=== PATIENT | female | born 1955 | race Caucasian/White ===

== ENCOUNTER → 2016-12-12 | Outpatient (CLI) | payer OTHER ==
[~2016-12-12] MED LIST: ABILIFY 15MG TA15 MG PO; ARCAPTA NEOHAL75 MCG IH; CALCIUM WITH VI1 TA1 PO; COMBIVENT INH14.7 GM IH; COUMADIN 77.5 MG/TAB PO; LEVAQUIN 750MG750 M1 PO; LEVOXYL0.088 MG PO; LEXAPRO20 MG PO; NASAL & SINUS D30 MG PO; NORCO 325 MG-51 TAB PO; ONE DAILY1 TA1 PO; RT ADVAIR 528 DISKUS IH; RT SPIRIVA18 MCG IH; SINGULAIR 110 MG/TAB PO; ZYRTEC5 MG PO; [UNRECOGNIZED DRUG - OTHER] PO
== END ==
LOC: COL.PUL 09:43
DX: Z02.71 Encounter for disability determination (principal); Z87.891 Personal history of nicotine dependence; Z90.710 Acquired absence of both cervix and uterus

== ENCOUNTER → 2017-04-06 | Outpatient (CLI) | payer BC | LOC: MC.RAD 11:38 | DX: Z12.31 Encounter for screening mammogram for malignant neoplasm of breast (principal) ==

== ENCOUNTER → 2018-04-22 | Outpatient (CLI) | payer BC | LOC: MC.RAD 09:29 | DX: Z12.31 Encounter for screening mammogram for malignant neoplasm of breast (principal) ==

== ENCOUNTER 2018-09-07 19:47 | Inpatient (IN) | payer BC ==
[2018-09-07] VITALS (92 sets, daily range): BP systolic 114; BP diastolic 49; PULSE 106; TEMP 97.5; O2SAT 83–100
[~2018-09-07] VITALS: Ht 165.1 cm; Wt 92.7 kg
[2018-09-07 20:07] LABS: BASO % 0.3 % (0.0-2.0); EOS # 0.1 (0.0-0.7); EOS % 0.9 % (0-4.0); GRAN # 4.8 (1.4-6.5); GRAN % 45.3 % (42.2-75.2); HEMATOCRIT 41.4 % (37.0-47.0); HEMOGLOBIN 12.6 g/dl (12.5-16.0); LYMPH # 4.3 (1.2-3.4); LYMPH % 41.2 % (20.0-51.0); MEAN CELL VOLUME 102 fl (80.0-100.0); MEAN CORPUSCULAR HEMOGLOBIN 31 pg (27.0-31.0); MEAN CORPUSCULAR HGB CONC 30 g/dl (33.0-37.0); MEAN PLATELET VOLUME 9.9 fl (7.4-10.4); MONO # 1.2 (0.1-0.6); MONO % 11.4 % (1.7-9.3); PLATELET COUNT 234 K/mm3 (130-400); RED BLOOD COUNT 4.05 M/mm3 (4.10-5.30); REDCELL DISTRIBUTION WIDTH-CV 11.9 % (11.5-14.5)
[2018-09-07 20:20] LABS: ALANINE AMINOTRANSFERASE < 6 U/L (9-52); ALBUMIN 4.2 gm/dL (3.5-5.0); ALKALINE PHOSPHATASE 82 U/L (50-136); ANION GAP 16 mmol/L (7-16); AST,SGOT 35 U/L (15-37); BILIRUBIN,TOTAL 0.2 mg/dL (0.0-1.0); BLOOD UREA NITROGEN 9 mg/dL (7-17); C-REACTIVE PROTEIN 1.4 mg/dL (0.0-0.9); CALCIUM 9.4 mg/dL (8.4-10.2); CARBON DIOXIDE 32 mmol/L (22-30); CHLORIDE 94 mmol/L (98-107); CREATININE, serum 0.81 (0.52-1.25); GLUCOSE 229 mg/dL (74-106); POTASSIUM 3.7 mmol/L (3.4-5.0); SODIUM 143 mmol/L (137-145); TOTAL PROTEIN 7.6 gm/dL (6.4-8.2)
[2018-09-07 20:33] LABS: INR 1.6 (0.8-3.0); PROTHROMBIN TIME 18.6 SECONDS (9.7-12.8)
[2018-09-07] MEDS ORDERED: COMBIRESP IH (20:39)
[2018-09-07] MEDS ORDERED: RT ADVAIR 528 DISKUS IH (20:40)
[2018-09-07] MEDS ORDERED: MULTI VITAMINS1 TAB PO (20:41)
[2018-09-07] MEDS ORDERED: ANORO IH (20:41)
[2018-09-07] MEDS ORDERED: SYNTHROID0.075 MG/T PO (20:41)
[2018-09-07] MEDS ORDERED: D3-5050000 IU PO (20:42)
[2018-09-07] MEDS ORDERED: COUMADIN 5MG5 MG/TAB PO (20:46)
[2018-09-07] MEDS ORDERED: COUMADIN 1MG1 MG/TAB PO (20:46)
[2018-09-07 20:52] LABS: TROPONIN-I < 0.012 ng/mL (0.000-0.035)
[2018-09-07 20:53] LABS: ARTERIAL BLOOD GAS pH 7.11 (7.35-7.45)
[2018-09-07 20:54] LABS: ARTERIAL BLD GAS TCO2 CT 35; ARTERIAL BLOOD GAS BASE EXCESS -0.9 (-2-2)
[2018-09-07] MEDS ORDERED: DALIRESP500 MCG PO (21:07)
[2018-09-07 21:13] LABS: ARTERIAL BLD GAS O2 SATURATION 97.2 % (92-100); ARTERIAL BLD GAS TCO2 CT 40.3; ARTERIAL BLOOD GAS BASE EXCESS 6.3 (-2-2); ARTERIAL BLOOD GAS HCO3 37.4 meq/L (22-26); ARTERIAL BLOOD GAS PO2 117.6 mmHg (80-100); ARTERIAL BLOOD GAS pH 7.21 (7.35-7.45)
[2018-09-07 21:14] LABS: ARTERIAL BLOOD GAS PCO2 95.2 mmHg (35-45)
--- NOTE | 2018-09-07 21:16 | NUR ---
Report called over by AMINATA Paiz in the ED. Patient will be brought to unit shortly.
--- NOTE | 2018-09-07 21:57 | NUR ---
Patient arrives at this time via ED cart with belongings. Patient transfers to unit bed via stand and pivot, patient does appear short of breath. She is currently on 4L NC and O2 sat is 88%. Debra from [facility] is here to place patient on BiPAP. Patient's pharmacy and medications confirmed. She is alert and oriented. , Rob, at the bedside. Assessment complete. Lungs are clear in all last, as well as diminished. HR and rhythm regular, but tachycardic with exertion. Normal S1 and S2 heard. Bowel sounds are active x4. Patient does have complaints of nausea, emesis bag provided. Patient currently has no pain. Oriented patient and family to room and unit. Went over call light and controls for the bed. Patient has no further needs. Will continue to monitor. Call light within reach.
[2018-09-07] MEDS ORDERED: DRISDOL50000 IU PO (22:22)
[2018-09-08] VITALS (1241 sets, daily range): BP systolic 87–109; BP diastolic 55–72; PULSE 50–87; TEMP 97.4–98.5; O2SAT 39–100
--- NOTE | 2018-09-08 | NUR ---
Patient sleeps between disturbances, requests to use the restroom. Spoke to patient and explained that she will not be able to get up to the toilet right now, but she can use a bedside commode where she can stand and pivot, she currently gets too short of breath with steps to walk across the room and back. Bedside commode provided. Patient voids and has a large soft bowel movement. Returns to bed. Patient has no further needs. She remains pain free. Assessment complete. No changes from previous exam. Vitals remain stable. Will continue to monitor. Call light within reach.
--- NOTE | 2018-09-08 03:30 | NUR ---
Patient awake at this time and has complaints that she is "not breathing in deep enough". Patient has acceptable tidal volumes per BiPAP. Patient is not short of breath or having any trouble breathing. Respirations are regular and shallow, as they have been since arrival. Patient is still tachypneic. Explained to patient that we cant take her off of the BiPAP right now due to her CO2 being so high, and that oxygen via a mask or NC will not help the way that the BiPAP does. Explained how the BiPAP works and the plan of care. ABG will be rechecked in the morning and they will reassess her need for BiPAP after she is seen by the physicians. Patient confirmed understanding and has no other questions at this time.
--- NOTE | 2018-09-08 04:00 | NUR ---
Patient awake at this time. She is alert and oriented. Assessment complete. No changes from previous exam. Vitals remain stable. No complaints of pain or SOB. No signs of distress. Will continue to monitor. Call light within reach.
--- NOTE | 2018-09-08 04:55 | NUR ---
Called to patient room at this time, patient states "I think I'm going to throw up". Patient is pale and diaphoretic upon entry. Patient taken off of BiPAP and placed on 4L NC. Emesis bag provided. Patient proceeds to have a few episodes of dry heaving, but no emesis produced. Zofran given. After 5mins patient's color has come back and she no longer feels nauseated. BiPAP replaced. No further needs at this time. Will continue to monitor.
[2018-09-08 05:00] LABS: ARTERIAL BLD GAS O2 SATURATION 98.2 % (92-100); ARTERIAL BLD GAS TCO2 CT 39.5; ARTERIAL BLOOD GAS BASE EXCESS 5.9 (-2-2); ARTERIAL BLOOD GAS HCO3 36.6 meq/L (22-26); ARTERIAL BLOOD GAS pH 7.21 (7.35-7.45)
[2018-09-08 05:07] LABS: ARTERIAL BLOOD GAS PCO2 93.7 mmHg (35-45); ARTERIAL BLOOD GAS PO2 142.1 mmHg (80-100)
[2018-09-08 05:52] LABS: INR 1.5 (0.8-3.0); PROTHROMBIN TIME 18.3 SECONDS (9.7-12.8)
[2018-09-08 05:56] LABS: ALBUMIN 3.6 gm/dL (3.5-5.0); BILIRUBIN,TOTAL 0.1 mg/dL (0.0-1.0); CALCIUM 7.8 mg/dL (8.4-10.2); CREATININE, serum 0.81 (0.52-1.25); POTASSIUM 5.1 mmol/L (3.4-5.0); TOTAL PROTEIN 6.7 gm/dL (6.4-8.2)
[2018-09-08 05:58] LABS: HEMOGLOBIN 11.2 g/dl (12.5-16.0); MEAN CELL VOLUME 103 fl (80.0-100.0); MEAN CORPUSCULAR HEMOGLOBIN 31 pg (27.0-31.0); MEAN CORPUSCULAR HGB CONC 30 g/dl (33.0-37.0); MEAN PLATELET VOLUME 9.6 fl (7.4-10.4); PLATELET COUNT 167 K/mm3 (130-400); RED BLOOD COUNT 3.57 M/mm3 (4.10-5.30); REDCELL DISTRIBUTION WIDTH-CV 11.9 % (11.5-14.5)
[2018-09-08 06:05] LABS: HEMATOCRIT 36.8 % (37.0-47.0)
[2018-09-08 06:12] LABS: TROPONIN-I 0.224 ng/mL (0.000-0.035)
[2018-09-08 07:11] LABS: BAND 16 % (0-10); LYMPHOCYTE 3 % (20.0-51.0); NEUTROPHILS 81 % (42.0-75.2); PLATELET ESTIMATE NORMAL (NORMAL)
--- NOTE | 2018-09-08 07:45 | NUR ---
Bedside report given to Dio RN and AMINATA Gilmore.
--- NOTE | 2018-09-08 08:00 | NUR ---
PATIENT ASSESSED, VITALS STABLE. PLAN OF CARE REVIEWED WITH PATIENT AND FAMILY. PATIENT AND FAMILY'S QUESTIONS AND CONCERNS ADDRESSED. BED IN LOW POSITION, CALL LIGHT IN PLACE. WILL CONTINUE TO MONITOR.
--- NOTE | 2018-09-08 08:30 | NUR ---
PT ELECTIVELY INTUBATED PER DR. FRANCIS BY ANESTHESIA. #7.5, 22 @ TEETH. SETTINGS PER DR. FRANCIS. GOOD, CONSISTENT COLOR CHANGE ON CO2 DETECTOR, GOOD BILATERAL BREATH SOUNDS, CXR PENDING.
--- NOTE | 2018-09-08 08:30 | NUR ---
0830 DENNY NEAL CRNA AT BEDSIDE FOR INTUBATION. ADMINISTERED 2MG OF VERSED, 80MG OF PROPOFOL, 60MG OF SUCCINYLCHOLINE, 10MG OF VECURONIUM. 0843 TUBE PLACEMENT VERIFIED BY XRAY, AUSCULTATION, AND COLOR CHANGE. INITIATING SEDATION PER ORDERS FROM DR. FRANCIS. PATIENT TOLERATED PROCEDURE WELL WITH NO HEMODYNAMIC INSTABILITY NOTED. WILL CONTINUE TO MONITOR.
[2018-09-08 10:47] LABS: ARTERIAL BLD GAS TCO2 CT 30.4; ARTERIAL BLOOD GAS BASE EXCESS 1.4 (-2-2); ARTERIAL BLOOD GAS HCO3 28.6 meq/L (22-26); ARTERIAL BLOOD GAS PO2 119.9 mmHg (80-100); ARTERIAL BLOOD GAS pH 7.31 (7.35-7.45)
[2018-09-08 10:50] LABS: COLLECTION METHOD CLEAN CATCH
[2018-09-08 10:58] LABS: MUCOUS Present /lpf; PH 5 (5-8); SQUAMOUS EPITHELIAL None Seen /hpf; URINE APPEARANCE Hazy; URINE BACTERIA None Seen /hpf; URINE BILIRUBIN Negative (NEGATIVE); URINE BLOOD Negative (NEGATIVE); URINE COLOR Yellow; URINE GLUCOSE Negative (NEGATIVE); URINE KETONE Negative (NEGATIVE); URINE LEUKOCYTE ESTERASE Negative (NEGATIVE); URINE NITRATE Negative (NEGATIVE); URINE PROTEIN(semi-quant) Negative (NEGATIVE); URINE UROBILINOGEN Negative (NEGATIVE)
--- NOTE | 2018-09-08 11:55 | NUR ---
Initial visit attempt; Patient sleeping, Dairy Feed Worker spoke with family letting them know of the availability of [facility] and the location of the [facility].
--- NOTE | 2018-09-08 12:00 | NUR ---
PATIENT REASSESSED AND REPOSITIONED. FAMILY QUESTIONS AND CONCERNS ADDRESSED. RESTRAINTS CHECKED. IV LINES REASSESSED. VITAL SIGNS AND VENTILATION REVIEWED WITH DR. FRANCIS. WILL CONTINUE TO MONITOR.
--- NOTE | 2018-09-08 14:30 | NUR ---
PROPOFOL RATE INCREASED TO INCREASE SEDATION PRIOR TO ADMINISTRATION OF PARALYTIC MEDICATION.
--- NOTE | 2018-09-08 14:38 | NUR ---
TRAIN OF 4 BASELINE OBTAINED. WILL INITIATE DRIP AND CONTINUE TO MONITOR.
[2018-09-08 15:18] LABS: ARTERIAL BLD GAS O2 SATURATION 96.1 % (92-100); ARTERIAL BLD GAS TCO2 CT 28.7; ARTERIAL BLOOD GAS BASE EXCESS 3.2 (-2-2); ARTERIAL BLOOD GAS HCO3 27.4 meq/L (22-26); ARTERIAL BLOOD GAS PCO2 40.3 mmHg (35-45); ARTERIAL BLOOD GAS PO2 78.7 mmHg (80-100); ARTERIAL BLOOD GAS pH 7.45 (7.35-7.45)
--- NOTE | 2018-09-08 15:23 | NUR ---
VT DECREASED TO 420, RATE DECREASED TO [address] FRANCIS POST REPEAT ABG.
--- NOTE | 2018-09-08 15:25 | NUR ---
TURNED OFF PER DR. FRANCIS'S ORDERS.
--- NOTE | 2018-09-08 15:41 | NUR ---
SW met with patient who is intubated and her . Patient lives in [place] with her Rob. She is independent with ADLs and does not use a walker or any other assistive devices. Patient does get o2 and has a bipap from [facility]. Her PCP is Dr Trisha Rao and she obtains her medications from [facility]. Patient does not have a DPOA HC at this time but is interested in completing one when she is awake and able. SW discussed options for discharge such as IPR or KRH if patient is able to do that level of therapy. SW will continue to follow to assist in DC planning.
--- NOTE | 2018-09-08 16:00 | NUR ---
PATIENT REASSESSED AND REPOSITIONED. PATIENT SEDATION REASSESSED AFTER TURNING OFF PARALYTIC MEDICATION. IV LINES RETRACED. WILL CONTINUE TO MONITOR.
--- NOTE | 2018-09-08 17:35 | NUR ---
NO SEDATION VACATION PERFORMED. PATIENT RECENTLY ON PARALYTIC DRIP. PATIENT TO REMAIN SEDATED DUE TO HIGH PEAK PRESSURES PER DR. FRANCIS.
--- NOTE | 2018-09-08 17:48 | NUR ---
PROPOFOL INITIATED WITH INTUBATION.
--- NOTE | 2018-09-08 17:53 | NUR ---
FENTANYL INITATED WITH INTUBATION.
--- NOTE | 2018-09-08 18:47 | NUR ---
PROPOFOL RATE INCREASED TO INCREASE SEDATION LEVEL PRIOR TO ADMINISTRATION OF PARALYTIC MEDICATION.
--- NOTE | 2018-09-08 18:48 | NUR ---
FENTANYL RATE INCREASED TO INCREASE SEDATION PRIOR TO ADMINISTRATION OF PARALYTIC MEDICATION.
--- NOTE | 2018-09-08 19:00 | NUR ---
REPORT GIVEN TO AMINATA VILLELA.
--- NOTE | 2018-09-08 19:15 | NUR ---
Beside report received from AMINATA Gilmore and AMINATA Wharton. All lines and medications reviewed. Tube placement confirmed. Transfer of care at this time.
--- NOTE | 2018-09-08 20:00 | NUR ---
Patient resting comfortably on the vent. When patient's name is called she opens her eyes and responds to yes and no questions by shaking her head. She follows commands. Assessment complete. Assessment reveals clear lung sounds in all last. HR and rhythm regular, bradycardic, normal S1 and S2 heard. Bowel sounds active. Patient has faint palpable pedal pulses. When asked if she is in pain, she shakes her head no. Placement of OG tube confirmed by auscultation and residual checked. Patient has no further needs at this time. Will continue to monitor. Call light within reach.
--- NOTE | 2018-09-08 20:40 | NUR ---
Patient has become agitated at this time, coughing hard against the vent despite suctioning. Patient is turning red in the face and fighting the vent. Veceronium restarted.
[2018-09-08 21:14] LABS: ARTERIAL BLD GAS O2 SATURATION 95.3 % (92-100); ARTERIAL BLD GAS TCO2 CT 29.2; ARTERIAL BLOOD GAS BASE EXCESS 0.3 (-2-2); ARTERIAL BLOOD GAS HCO3 27.5 meq/L (22-26); ARTERIAL BLOOD GAS PCO2 55.9 mmHg (35-45); ARTERIAL BLOOD GAS PO2 82.2 mmHg (80-100); ARTERIAL BLOOD GAS pH 7.31 (7.35-7.45)
--- NOTE | 2018-09-08 21:32 | NUR ---
Dr. Rao here at this time to see the patient. Makes changes to vent settings, increasing tidal volume to 450. Dr. Rao also speaks with family while here. All questions answered.
--- NOTE | 2018-09-08 21:43 | NUR ---
Veceronium stopped at this time per Dr. Rao for heart rate less than 50.
[2018-09-09] VITALS (1317 sets, daily range): BP systolic 92–108; BP diastolic 45–67; PULSE 50–62; TEMP 97.6–98.7; O2SAT 68–100
--- NOTE | 2018-09-09 | NUR ---
Patient resting on the vent. No signs of distress. Patient's peak pressures remain in acceptable ranges as long as patient is resting, when she is awake they get as high as the 50's. Assessment complete. No changes from previous exam except for some slight expiratory wheezes in the right upper lobe. All other findings remain the same. Patient is still following commands and denies pain. No further needs at this time. Will continue to monitor. Call light within reach.
--- NOTE | 2018-09-09 04:00 | NUR ---
Patient resting comfortably on the vent, no signs of pain or distress. Assessment complete. No changes from previous exam except that patient now has expiratory wheezes in the left upper lobe. All other findings remain the same. Vitals obtained and remain stable. Patient has no further needs at this time. Will continue to monitor. Call light within reach.
--- NOTE | 2018-09-09 05:00 | NUR ---
Sedation vacation not performed. Patient is awake and alert, responding to questions and following commands.
[2018-09-09 05:35] LABS: ARTERIAL BLD GAS O2 SATURATION 96.2 % (92-100); ARTERIAL BLD GAS TCO2 CT 28.8; ARTERIAL BLOOD GAS BASE EXCESS -0.5 (-2-2); ARTERIAL BLOOD GAS PCO2 57.8 mmHg (35-45); ARTERIAL BLOOD GAS PO2 93.6 mmHg (80-100); ARTERIAL BLOOD GAS pH 7.29 (7.35-7.45)
--- NOTE | 2018-09-09 05:40 | NUR ---
PT NOT ON WEANING TRIAL SHE HAS NOT BEEN INTUBATED FOR OVER 24 HOURS.
[2018-09-09 05:52] LABS: HEMOGLOBIN 10.6 g/dl (12.5-16.0); MEAN CELL VOLUME 99 fl (80.0-100.0); MEAN CORPUSCULAR HEMOGLOBIN 30 pg (27.0-31.0); MEAN CORPUSCULAR HGB CONC 31 g/dl (33.0-37.0); MEAN PLATELET VOLUME 9.9 fl (7.4-10.4); PLATELET COUNT 167 K/mm3 (130-400); REDCELL DISTRIBUTION WIDTH-CV 12.3 % (11.5-14.5)
[2018-09-09 05:55] LABS: HEMATOCRIT 34.8 % (37.0-47.0)
[2018-09-09 06:06] LABS: CALCIUM 7.4 mg/dL (8.4-10.2); CREATININE, serum 0.6 (0.52-1.25); MAGNESIUM 1.8 mg/dL (1.6-2.3); PHOSPHOROUS 2.1 mg/dL (2.5-4.5); POTASSIUM 4.1 mmol/L (3.4-5.0)
[2018-09-09 06:26] LABS: BAND 20 % (0-10); LYMPHOCYTE 1 % (20.0-51.0); NEUTROPHILS 75 % (42.0-75.2); PLATELET ESTIMATE NORMAL (NORMAL)
[2018-09-09 06:27] LABS: HYPOCHROMIA 2+
--- NOTE | 2018-09-09 07:00 | NUR ---
Bedside report recieved from AMINATA Manuel. ETT, and OG tube placement confirmed. ZEESHAN PICC and LW peripheral site are uncomplicated. Avila with postive UO noted. All MIVF and gtt rates verified. Bed in low and locked position, call light within reach, rails up x2. Care assumed.
--- NOTE | 2018-09-09 07:10 | NUR ---
Bedside VORB by Dr. Rao to increased propofol to 30mcg/kg/hr. See associated documentation.
--- NOTE | 2018-09-09 07:26 | NUR ---
Bedside report given to AMINATA Ellsworth. All lines, medications, and tubes reviewed. Transfer of care at this time.
--- NOTE | 2018-09-09 11:47 | NUR ---
Dr. Rosa rounds at this time. Orders as entered CPOE.
--- NOTE | 2018-09-09 13:33 | NUR ---
JEMIMA attended clinical rounding. Dr Rosa asked patients if they have had discussions about end of life/pallative care in the past and he reports they have. JEMIMA will continue to follow. Patients would like her to complete DPOA when able.
[2018-09-09 17:08] LABS: ARTERIAL BLD GAS O2 SATURATION 96.4 % (92-100); ARTERIAL BLD GAS TCO2 CT 26.1; ARTERIAL BLOOD GAS BASE EXCESS -2.8 (-2-2); ARTERIAL BLOOD GAS HCO3 24.4 meq/L (22-26); ARTERIAL BLOOD GAS PCO2 53.2 mmHg (35-45); ARTERIAL BLOOD GAS PO2 99.8 mmHg (80-100); ARTERIAL BLOOD GAS pH 7.28 (7.35-7.45)
--- NOTE | 2018-09-09 19:30 | NUR ---
Bedside report received from AMINATA Ellsworth. All lines, tubes, and medications reviewed and confirmed. Transfer of care at this time.
--- NOTE | 2018-09-09 20:00 | NUR ---
Patient resting on the ventilator. No signs of pain or distress. Patient is sedated and asleep upon entering the room. Patient awakens during assessment. She is alert and following commands. Assessment complete. Lungs have expiratory wheezes in upper lobes bilaterally with diminished bases. RT Willi notified of wheezing. HR and rhythm regular, bradycardic, normal S1 and S2 heard. Bowel sounds are active x4. Patient does have some edema to the lower extremities, +1 pitting. Patient denies any pain at this time. Repositioned for comfort. No further needs. Will continue to monitor. Call light within reach.
--- NOTE | 2018-09-09 22:05 | NUR ---
Patient has been awake and alert since the assessment. Only intermittenly falls asleep for a short time. Asked patient if she would like the sedation turned up so that she could go back to sleep, she nods her head yes. Propofol increased at this time for comfort.
[2018-09-10] VITALS (1131 sets, daily range): BP systolic 92–154; BP diastolic 50–79; PULSE 52–110; TEMP 98.2–98.8; O2SAT 64–100
--- NOTE | 2018-09-10 | NUR ---
Patient sleeping on the vent. Awakens for assessment. Assessment reveals expiratory wheezes in all last of the right lung, left lung is clear. Diminished bases bilaterally. Patient remains bradycardic. Bowels are still active. When asked if in pain, patient shakes head no. Follows commands. Vitals obtained and remain stable. No further needs at this time. Will continue to monitor. Call light within reach.
--- NOTE | 2018-09-10 04:00 | NUR ---
Patient asleep on the vent. No signs of pain or distress. Assessment complete. Left upper lobe has wheezing, all other last are clear with diminished bases. All other findings remain the same. Vitals obtained and remain stable. No further needs at this time. Will continue to monitor. Call light within reach.
[2018-09-10 04:34] LABS: ARTERIAL BLD GAS O2 SATURATION 96.3 % (92-100); ARTERIAL BLD GAS TCO2 CT 31.7; ARTERIAL BLOOD GAS HCO3 30.2 meq/L (22-26); ARTERIAL BLOOD GAS PCO2 47.8 mmHg (35-45); ARTERIAL BLOOD GAS PO2 89.2 mmHg (80-100); ARTERIAL BLOOD GAS pH 7.42 (7.35-7.45)
--- NOTE | 2018-09-10 05:00 | NUR ---
Sedation vacation started at this time. Patient is alert and responds to yes/no questions. Following commands. Propofol decreased to 20mcg/kg/min and fentanyl decreased to 75mcg/hr. Patient responds no when asked if she is in pain. No signs of distress. Patient placed on CPAP mode by RT Willi. Rob Garrett, at bedside. Will continue to monitor.
[2018-09-10 05:39] LABS: HEMOGLOBIN 10.3 g/dl (12.5-16.0); MEAN CELL VOLUME 96 fl (80.0-100.0); MEAN CORPUSCULAR HEMOGLOBIN 31 pg (27.0-31.0); MEAN CORPUSCULAR HGB CONC 32 g/dl (33.0-37.0); MEAN PLATELET VOLUME 9.8 fl (7.4-10.4); PLATELET COUNT 164 K/mm3 (130-400); RED BLOOD COUNT 3.35 M/mm3 (4.10-5.30); REDCELL DISTRIBUTION WIDTH-CV 12.4 % (11.5-14.5)
[2018-09-10 05:42] LABS: HEMATOCRIT 32.3 % (37.0-47.0)
[2018-09-10 05:47] LABS: CALCIUM 7.3 mg/dL (8.4-10.2); CREATININE, serum 0.64 (0.52-1.25); POTASSIUM 4.4 mmol/L (3.4-5.0)
[2018-09-10 05:59] LABS: LYMPHOCYTE 4 % (20.0-51.0); NEUTROPHILS 94 % (42.0-75.2); PLATELET ESTIMATE NORMAL (NORMAL)
--- NOTE | 2018-09-10 06:45 | NUR ---
Dr Rao at the bedside at this time. Verbal order to stop fentanyl and propofol at this time to prepare for possible extubation.
--- NOTE | 2018-09-10 07:20 | NUR ---
Bedside report given to AMINATA Lopez. All lines, tubes and medications reviewed and confirmed. Transfer of care.
--- NOTE | 2018-09-10 07:30 | NUR ---
PT HAS BEEN ON CPAP MODE ON VENT TO ATTEMPT TO EXTUBATE. ABG OBTAINED AND PH RETURNED AT 7.26, CO2 FROM 47 TO 71.5. UNABLE TO EXTUBATE PT AT THIS TIME. ABG RESULTS DISCUSSED WITH AND DAUGHTER BY DR FRANCIS AND THEN RESULTS REPORTED TO PATIENT. PLAN IS TO PLACE PT BACK ON SEDATION AND PREVIOUS VENT SETTINGS AND CHECK ABG AT A LATER TIME.
[2018-09-10 07:33] LABS: ARTERIAL BLD GAS O2 SATURATION 95.6 % (92-100); ARTERIAL BLD GAS TCO2 CT 33.7; ARTERIAL BLOOD GAS BASE EXCESS 2.6 (-2-2); ARTERIAL BLOOD GAS HCO3 31.5 meq/L (22-26); ARTERIAL BLOOD GAS pH 7.26 (7.35-7.45)
[2018-09-10 07:34] LABS: ARTERIAL BLOOD GAS PCO2 71.5 mmHg (35-45)
--- NOTE | 2018-09-10 09:00 | NUR ---
PT READY TO BE PLACED BACK ON SEDATION AND PREVIOUS VENT SETTINGS. PT AND FAMILY REQUESTED TO ALLOW PT TO BE ALERT AND AWAKE UNTIL HER SON COULD ARRIVE. SON AT BEDSIDE.
--- NOTE | 2018-09-10 09:41 | NUR ---
DECREASED PROPROFOL GTT D/T DECREASE IN PT'S BP AFTER INITIATION.
--- NOTE | 2018-09-10 11:21 | NUR ---
SPOKE WITH PT'S TO CLARIFY IF FAMILY WOULD LIKE TO TRANSFER PATIENT TO [facility] FOR SECOND OPINION. FACE SHEET AND PAPERWORK FAXED TO TRANSFER CENTER. DISCUSSED WITH DR FRANCIS, PATIENT, AND FAMILY REGARDING PLAN OF CARE AND POSSIBLY TRANSFER. MADE FAMILY AWARE THAT LIKELY [facility] WILL NOT CHANGE THERAPY AND THAT INSURANCE MAY NOT PAY FOR LATERAL TRANSFER. PATIENT EXPRESSES SHE WOULD LIKE TO STAY HERE WELL . PT'S DAUGHTER ALSO STATES SHE WOULD LIKE PT TO STAY HERE WELL. AWAITING TO HEAR FROM PT'S SON.
--- NOTE | 2018-09-10 11:33 | NUR ---
SW attended clinical rounding. Patients was interested in [facility] transfer initially but changed his mind and would like to stay here. Patient is still intubated but is awake and responding. SW will continue to follow.
--- NOTE | 2018-09-10 12:22 | NUR ---
FAMILY HAS DECIDED TO CANCEL TRANSFER TO AND KEEP PATIENT HERE AT [facility]. TRANSFER CENTER NOTIFIED. DR FRANCIS AWARE.
--- NOTE | 2018-09-10 18:00 | NUR ---
WAS GETTING READY TO TURN PATIENT BUT STATED THAT PATIENT JUST RECENTLY WAS MOVED IN BED AND HASN'T SLEPT MUCH AND IS FINALLY RESTING COMFORTABLY SO HE REQUESTS TO NOT TURN PATIENT AT THIS TIME.
--- NOTE | 2018-09-10 18:31 | NUR ---
STILL AWAITING TO HEAR FROM CLOTH HAULER ON PLAN
--- NOTE | 2018-09-10 19:50 | NUR ---
Patient assessment completed and charted at this time, pelase see documentation for details. Patient resting in bed, tolerating ventilator well at this time, patient at bedside. Patient semi-alert, following commands and agreeing with questions appropriately. Will continue to monitor and assess.
[2018-09-11] VITALS (1372 sets, daily range): BP systolic 97–162; BP diastolic 48–86; PULSE 62–118; TEMP 97.4–98.3; O2SAT 62–100
--- NOTE | 2018-09-11 00:05 | NUR ---
Patient remains on ventilator, tolerating well. Assessment completed, please see docuementation for details. Will continue to monitor.
[2018-09-11 04:52] LABS: ARTERIAL BLD GAS TCO2 CT 31.6; ARTERIAL BLOOD GAS BASE EXCESS 2.9 (-2-2); ARTERIAL BLOOD GAS HCO3 29.8 meq/L (22-26); ARTERIAL BLOOD GAS PCO2 57.2 mmHg (35-45); ARTERIAL BLOOD GAS PO2 84.4 mmHg (80-100); ARTERIAL BLOOD GAS pH 7.34 (7.35-7.45)
[2018-09-11 05:04] LABS: HEMATOCRIT 32.1 % (37.0-47.0); MEAN CELL VOLUME 98 fl (80.0-100.0); MEAN CORPUSCULAR HEMOGLOBIN 31 pg (27.0-31.0); MEAN CORPUSCULAR HGB CONC 31 g/dl (33.0-37.0); MEAN PLATELET VOLUME 10.2 fl (7.4-10.4); PLATELET COUNT 163 K/mm3 (130-400); RED BLOOD COUNT 3.28 M/mm3 (4.10-5.30); REDCELL DISTRIBUTION WIDTH-CV 12.6 % (11.5-14.5)
[2018-09-11 05:15] LABS: CALCIUM 7.5 mg/dL (8.4-10.2); CREATININE, serum 0.6 (0.52-1.25); PHOSPHOROUS 2.3 mg/dL (2.5-4.5); POTASSIUM 4.7 mmol/L (3.4-5.0)
[2018-09-11 05:36] LABS: BAND 5 % (0-10); HYPOCHROMIA 1+; LYMPHOCYTE 3 % (20.0-51.0); METAMYELOCYTE 1 % (0-0); NEUTROPHILS 86 % (42.0-75.2); PLATELET ESTIMATE NORMAL (NORMAL)
--- NOTE | 2018-09-11 07:25 | NUR ---
Bedside report received from AMINATA Arreola.
--- NOTE | 2018-09-11 07:45 | NUR ---
Assessment complete, patient intubated on cpap mode, restless, coughing against ventilator, trying to sit up in bed, tachycardic. at bedside.
--- NOTE | 2018-09-11 08:35 | NUR ---
Patient very restless, tachycardic, tachypneic, sats 82%. Dr. Rao notified, RT at bedside, placed patient on AC mode, ABG drawn at this time.
[2018-09-11 08:50] LABS: ARTERIAL BLD GAS O2 SATURATION 93.5 % (92-100); ARTERIAL BLD GAS TCO2 CT 37.2; ARTERIAL BLOOD GAS BASE EXCESS 4.3 (-2-2); ARTERIAL BLOOD GAS HCO3 34.5 meq/L (22-26); ARTERIAL BLOOD GAS PCO2 86.1 mmHg (35-45); ARTERIAL BLOOD GAS PO2 81.2 mmHg (80-100); ARTERIAL BLOOD GAS pH 7.22 (7.35-7.45)
--- NOTE | 2018-09-11 10:27 | NUR ---
Dr. Rao here to see patient.
--- NOTE | 2018-09-11 11:05 | NUR ---
Dr. Rao at bedside, verbal orders to increase Fentanyl gtt to 125mcg/hr.
--- NOTE | 2018-09-11 12:15 | NUR ---
Dr. Rosa here to see patient.
[2018-09-11 14:04] LABS: ARTERIAL BLD GAS O2 SATURATION 94.6 % (92-100); ARTERIAL BLD GAS TCO2 CT 31.7; ARTERIAL BLOOD GAS BASE EXCESS 3.5 (-2-2); ARTERIAL BLOOD GAS PCO2 55.3 mmHg (35-45); ARTERIAL BLOOD GAS PO2 76.3 mmHg (80-100); ARTERIAL BLOOD GAS pH 7.35 (7.35-7.45)
--- NOTE | 2018-09-11 15:45 | NUR ---
Assessment complete, patient resting quietly at this time, at bedside.
--- NOTE | 2018-09-11 19:12 | NUR ---
Bedside report given to AMINATA Arreola. Left hand swollen and ecchymotic, INT removed, tip intact.
[2018-09-12] VITALS (1401 sets, daily range): BP systolic 85–164; BP diastolic 46–83; PULSE 54–90; TEMP 97.6–98.5; O2SAT 64–100
--- NOTE | 2018-09-12 05:00 | NUR ---
Patient anxious at this time, no sedation vacation at this time.
[2018-09-12 05:31] LABS: GRAN # 6.2 (1.4-6.5); GRAN % 85.5 % (42.2-75.2); LYMPH # 0.3 (1.2-3.4); LYMPH % 4.1 % (20.0-51.0); MEAN CELL VOLUME 100 fl (80.0-100.0); MEAN CORPUSCULAR HGB CONC 31 g/dl (33.0-37.0); MEAN PLATELET VOLUME 10.3 fl (7.4-10.4); MONO # 0.7 (0.1-0.6); MONO % 9.2 % (1.7-9.3); PLATELET COUNT 140 K/mm3 (130-400); RED BLOOD COUNT 2.84 M/mm3 (4.10-5.30); REDCELL DISTRIBUTION WIDTH-CV 12.8 % (11.5-14.5)
[2018-09-12 05:32] LABS: HEMATOCRIT 28.5 % (37.0-47.0); HEMOGLOBIN 8.7 g/dl (12.5-16.0); MEAN CORPUSCULAR HEMOGLOBIN 31 pg (27.0-31.0)
[2018-09-12 05:38] LABS: ALBUMIN 2.7 gm/dL (3.5-5.0); BILIRUBIN,TOTAL 0.2 mg/dL (0.0-1.0); CREATININE, serum 0.58 (0.52-1.25); MAGNESIUM 2.1 mg/dL (1.6-2.3); POTASSIUM 4.6 mmol/L (3.4-5.0); TOTAL PROTEIN 5.1 gm/dL (6.4-8.2)
[2018-09-12 07:51] LABS: ARTERIAL BLD GAS O2 SATURATION 94.5 % (92-100); ARTERIAL BLD GAS TCO2 CT 35.7; ARTERIAL BLOOD GAS BASE EXCESS 7.1 (-2-2); ARTERIAL BLOOD GAS HCO3 33.8 meq/L (22-26); ARTERIAL BLOOD GAS PCO2 60.4 mmHg (35-45); ARTERIAL BLOOD GAS PO2 73.1 mmHg (80-100); ARTERIAL BLOOD GAS pH 7.37 (7.35-7.45)
--- NOTE | 2018-09-12 08:00 | NUR ---
PROPOFOL AND FENTANYL GTTS PLACED ON HOLD FOR PREPARATION FOR [facility] AT 0830
--- NOTE | 2018-09-12 08:28 | NUR ---
PT AWAKE AND ALERT. PT FOLLOWING COMMANDS. PT ANXIOUS. PT TACHYCARDIC WITH FREQUENT PAC'S AND INTERMITTENT PVCS.
--- NOTE | 2018-09-12 08:39 | NUR ---
PT PLACED ON 5+5 AT THIS TIME POST AM ABG PER DR. FRANCIS. WILL CONTINUE TO MONITOR. PT IS ALERT/AWAKE AT THIS TIME. SPOUSE AT BEDSIDE.
--- NOTE | 2018-09-12 09:08 | NUR ---
SW consult recieved. JEMIMA faxed referral to [facility], PH: [phone] Fx [phone] with FS. Waiting on response.
[2018-09-12 10:14] LABS: ARTERIAL BLD GAS O2 SATURATION 82.3 % (92-100); ARTERIAL BLD GAS TCO2 CT 33.7; ARTERIAL BLOOD GAS BASE EXCESS 2.5 (-2-2); ARTERIAL BLOOD GAS HCO3 31.4 meq/L (22-26); ARTERIAL BLOOD GAS pH 7.26 (7.35-7.45)
[2018-09-12 10:18] LABS: ARTERIAL BLOOD GAS PCO2 72.5 mmHg (35-45); ARTERIAL BLOOD GAS PO2 47.6 mmHg (80-100)
--- NOTE | 2018-09-12 10:30 | NUR ---
UNABLE TO EXTABTE PT AT THIS TIME D/T PH DECREASING AND PCO2 INCREASING WHILE ON CPAP ON VENT. FENTANYL AND [id number] GTTS RESUMED.
[2018-09-12 10:42] LABS: C-REACTIVE PROTEIN 0.8 mg/dL (0.0-0.9); MAGNESIUM 2.2 mg/dL (1.6-2.3); POTASSIUM 4.6 mmol/L (3.4-5.0)
--- NOTE | 2018-09-12 11:15 | NUR ---
UPON SUCTIONING PT HAD MODERATE AMT OF BLOODY SECRETIONS NOTED. PT ALSO HAD DECREASE IN O2 SAT TO 83%, PT'S COLOR SLIGHTLY CYANOTIC. DR FRANCIS NOTIFIED. AFTER A FEW SECONDS PT'S FIO2 INCREASED TO 60% BY RT. PT'S SAT NOW 97%. PT'S COLOR RETURNED TO PINK COLOR.
--- NOTE | 2018-09-12 12:00 | NUR ---
FIO2 INCREASED FROM 40% TO 60% PER DR. FRANCIS.
--- NOTE | 2018-09-12 13:03 | NUR ---
DECREASED PROPROFOL GTT D/T BP.
--- NOTE | 2018-09-12 15:19 | NUR ---
SW update: [facility] from [facility] reports that he will be here to meet with family between 8 am and noon 09/13/2018, Is okay with family contacting directly at .___
[2018-09-12 17:35] LABS: RETIC # 0.04 M/mm3 (0.02-0.16); RETIC % 1.3 % (0.5-3.52)
--- NOTE | 2018-09-12 19:13 | NUR ---
Pt is on correct settings. pt is resting well on vent. Water drained . No complication noted at this time. in room. Will continue to monitor pt
--- NOTE | 2018-09-12 19:15 | NUR ---
Bedside report received from AMINATA Lopez. All lines, tubes, and medications confirmed. Transfer of care at this time.
--- NOTE | 2018-09-12 20:00 | NUR ---
Patient resting comfortably on the vent. Patient's at the bedside. Patient is showing no signs of distress or pain. Patient opens eyes to name and follows commands. Assessment complete. Assessment reveals clear lung sounds in the right lung. Left upper lobe has expiratory wheezes, and bilaterally there are diminished bases. HR and rhythm regular, bradycardic, normal S1 and S2 heard. Abdomen is distented. Bowel sounds are active x4. Patient has pitting edema in all extremities. Patient has been having good urine output so far. No further needs at this time. Will continue to monitor. Call light within reach.
[2018-09-13] VITALS (1305 sets, daily range): BP systolic 91–157; BP diastolic 46–69; PULSE 51–202; TEMP 97.6–98.9; O2SAT 69–100
--- NOTE | 2018-09-13 | NUR ---
Patient resting on the vent. Awakens to name. Following commands. Patient shakes head no when asked if in pain. Assessment complete. Assessment reveals clear lung sounds with diminished bases. HR and rhythm regular. HR within normal limits when awake. Bowel sounds active x4. Repositioned for comfort. No further needs. Will continue to monitor.
--- NOTE | 2018-09-13 04:00 | NUR ---
Patient asleep resting on the vent. Awakens to name. Follows commands. Assessment complete and no changes noted from previous exam. Patient has produced a small semi-liquid stool. Cleaned with cleansing cloths, new bedding provided. No further needs at this time. Will continue to monitor.
--- NOTE | 2018-09-13 05:00 | NUR ---
Sedation vacation started at this time. Propofol and Fentanyl decreased. Will continue to monitor.
--- NOTE | 2018-09-13 05:20 | NUR ---
PT IS RESTING. PT IS ON CORRECT VENT SETTING .NO COMPLICATION NOTED AT THIS TIME. WILL CONTINUE TO MONITOR PT
--- NOTE | 2018-09-13 05:30 | NUR ---
Patient is becoming increasingly more agitated. is at bedside. Asked to sit with patient and talk to her to help calm her down. Stayed at bedside for several minutes until HR decreased below 100. Patient is having very frequent PAC's. at bedside appears to be helping. Patient is no longer sitting forward on the vent. Will continue to monitor.
--- NOTE | 2018-09-13 05:36 | NUR ---
Patient's HR changes to Afib RVR at this time. Rhythm is confirmed by JACQUES Molina. HR reaches a high of 202bpm. Patient is sitting forward on the vent and fighting against breaths. Patient placed back on sedation. Within 1min of patient back on sedation, she converts to normal sinus rhythm with PAC's, HR in the 80's. 0585 - HARLEY King called and notified of rhythm changes. BP 157/57 during this episode. Instructed to contact cardiology 0542 - Dr. Russell contacted. Gave report of rhythm change and vitals surrounding. Patient back in normal sinus. Orders to continue to monitor since she is back in rhythm, notify if any changes.
[2018-09-13 05:37] LABS: ALBUMIN 3.3 gm/dL (3.5-5.0); BILIRUBIN,TOTAL 0.3 mg/dL (0.0-1.0); CALCIUM 8.7 mg/dL (8.4-10.2); CREATININE, serum 0.66 (0.52-1.25); PHOSPHOROUS 4.8 mg/dL (2.5-4.5); POTASSIUM 4.8 mmol/L (3.4-5.0); TOTAL PROTEIN 6.1 gm/dL (6.4-8.2)
[2018-09-13 05:44] LABS: PRE ALBUMIN 28.2 mg/dL (17.6-36.0)
[2018-09-13 07:16] LABS: ARTERIAL BLD GAS TCO2 CT 40.2; ARTERIAL BLOOD GAS HCO3 38.2 meq/L (22-26); ARTERIAL BLOOD GAS PO2 71.2 mmHg (80-100); ARTERIAL BLOOD GAS pH 7.37 (7.35-7.45)
[2018-09-13 07:18] LABS: ARTERIAL BLOOD GAS PCO2 66.9 mmHg (35-45)
--- NOTE | 2018-09-13 07:20 | NUR ---
DECREASE PROPOFOL AND FENTANYL PER DR. FRANCIS'S VERBAL ORDER.
--- NOTE | 2018-09-13 07:30 | NUR ---
Bedside report given to AMINATA Wharton and AMINATA Gilmore. All lines, tubes, and medications reviewed. Transfer of care at this time.
[2018-09-13 08:00] LABS: MEAN CELL VOLUME 99 fl (80.0-100.0); MEAN CORPUSCULAR HGB CONC 31 g/dl (33.0-37.0); MEAN PLATELET VOLUME 11.1 fl (7.4-10.4); PLATELET COUNT 175 K/mm3 (130-400); RED BLOOD COUNT 3.22 M/mm3 (4.10-5.30); REDCELL DISTRIBUTION WIDTH-CV 12.7 % (11.5-14.5)
--- NOTE | 2018-09-13 08:03 | NUR ---
PATIENT ASSESSED, VITAL SIGNS REVIEWED WITH PROVIDER. FAMILY QUESTIONS AND CONCERNS ADDRESSED. POC REVIEWED. BED IN LOW POSITION. WILL CONTINUE TO MONITOR.
--- NOTE | 2018-09-13 08:11 | NUR ---
INCREASE PROPOFOL AND FENTANYL PER DR. FRANCIS'S VERBAL ORDER.
[2018-09-13 08:12] LABS: HEMATOCRIT 31.8 % (37.0-47.0); HEMOGLOBIN 9.9 g/dl (12.5-16.0); MEAN CORPUSCULAR HEMOGLOBIN 31 pg (27.0-31.0)
--- NOTE | 2018-09-13 08:24 | NUR ---
300 MG BOLUS ADMINISTERED PER PROVIDER'S ORDERS.
[2018-09-13 09:17] LABS: BAND 3 % (0-10); HYPOCHROMIA 2+; LYMPHOCYTE 5 % (20.0-51.0); METAMYELOCYTE 1 % (0-0); NEUTROPHILS 85 % (42.0-75.2); PLATELET ESTIMATE NORMAL (NORMAL)
--- NOTE | 2018-09-13 10:41 | NUR ---
Pt discharged by wheelchair to private vehicle at this time. Discharge summary and education reviewed with patient at bedside prior to discharge. All questions answered.
--- NOTE | 2018-09-13 11:13 | NUR ---
JEMIMA met with patients daughter. She wanted to know how she could get a second opinion. JEMIMA informed her they would need to transfer patient at their own cost to another facility. They had denied transfer to at the end of last week. JEMIMA informed house and ICU cured meat packing supervisor who met with family. Family met with Sergei from [facility] to discuss transfer there. They are agreeable to transfer. Sergei reports they can accept. JEMIMA informed nursing staff. Will continue to follow
--- NOTE | 2018-09-13 12:28 | NUR ---
PATIENT REASSESSED, REPOSITIONED. FAMILY QUESTIONS AND CONCERNS ADDRESSED. RESTRAINTS RECHECKED. WILL CONTINUE TO MONITOR.
--- NOTE | 2018-09-13 16:05 | NUR ---
PATIENT REASSESSED AND REPOSITIONED. FAMILY QUESTIONS AND CONCERNS ADDRESSED. VITAL SIGNS STABLE. WILL CONTINUTE TO MONITOR.
--- NOTE | 2018-09-13 16:06 | NUR ---
Sergei from [facility] called and said [facility] is willing to auth however only claribel shepherd is in network. JEMIMA will follow up with [facility] contact in the am.
--- NOTE | 2018-09-13 17:39 | NUR ---
NO RATE CHANGE PATIENT WAS HEADED TO SURGERY IN THE OR.
--- NOTE | 2018-09-13 18:20 | NUR ---
DRIPS RESTARTED PATIENT RETURNED FROM OR AT 1814. ASSESSED PEG TUBE INCISION AND DRESSING, TRACH SITE WITH AMINATA HART FROM OR.
--- NOTE | 2018-09-13 19:14 | NUR ---
BEDSIDE REPORT GIVEN TO AMINATA GAVIRIA.
--- NOTE | 2018-09-13 20:47 | NUR ---
PT IS TRACHED. PT IS AWAKE. GAUZE PUT AROUND TRACH BECAUSE OF BLEED. VITAL IN NORMAL LIMITS. WILL CONTINUE TO MONITOR PT
--- NOTE | 2018-09-13 20:54 | NUR ---
SCANT-SMALL HEMOPTYSIS NOTED UPON SUCTIONING PT'S TRACHEOSTOMY.
--- NOTE | 2018-09-13 23:13 | NUR ---
BP AT 75/36
[2018-09-14] VITALS (1297 sets, daily range): BP systolic 111–163; BP diastolic 67–90; PULSE 70–97; TEMP 98.1–99.2; O2SAT 76–100
[2018-09-14 04:47] LABS: ARTERIAL BLD GAS O2 SATURATION 92.8 % (92-100); ARTERIAL BLD GAS TCO2 CT 42.5; ARTERIAL BLOOD GAS BASE EXCESS 13.8 (-2-2); ARTERIAL BLOOD GAS HCO3 40.5 meq/L (22-26); ARTERIAL BLOOD GAS PCO2 64.3 mmHg (35-45); ARTERIAL BLOOD GAS PO2 67.7 mmHg (80-100); ARTERIAL BLOOD GAS pH 7.42 (7.35-7.45)
--- NOTE | 2018-09-14 05:00 | NUR ---
NO SEDATION VACATION REQUIRED PT ALREADY AWAKE AND NO WEANING TRIAL AT THIS TIME.
[2018-09-14 05:34] LABS: MEAN CELL VOLUME 98 fl (80.0-100.0); MEAN CORPUSCULAR HGB CONC 32 g/dl (33.0-37.0); MEAN PLATELET VOLUME 10.3 fl (7.4-10.4); PLATELET COUNT 145 K/mm3 (130-400); RED BLOOD COUNT 2.75 M/mm3 (4.10-5.30); REDCELL DISTRIBUTION WIDTH-CV 12.8 % (11.5-14.5)
[2018-09-14 05:35] LABS: HEMATOCRIT 26.9 % (37.0-47.0); HEMOGLOBIN 8.7 g/dl (12.5-16.0); MEAN CORPUSCULAR HEMOGLOBIN 32 pg (27.0-31.0)
[2018-09-14 05:58] LABS: BAND 5 % (0-10); LYMPHOCYTE 10 % (20.0-51.0); NEUTROPHILS 76 % (42.0-75.2); PLATELET ESTIMATE NORMAL (NORMAL)
--- NOTE | 2018-09-14 07:00 | NUR ---
BEDSIDE REPORT RECEIVED FROM AMINATA GAVIRIA.
[2018-09-14 09:01] LABS: CALCIUM 8.8 mg/dL (8.4-10.2); CREATININE, serum 0.68 (0.52-1.25); MAGNESIUM 1.7 mg/dL (1.6-2.3); PHOSPHOROUS 3.6 mg/dL (2.5-4.5); POTASSIUM 3.7 mmol/L (3.4-5.0)
--- NOTE | 2018-09-14 09:55 | NUR ---
PATIENT HAD AN EPISODE OF EMESIS FROM THE MOUTH. EMESIS WAS REDDISH BROWN IN COLOR. A SMALL AMOUNT OF EMESIS EXITED FROM THE TRACH TUBE. DR. FRANCIS NOTIFIED AND ASSESSED PATIENT. RESPIRATORY WAS PRESENT. BREATHING EFFORT WAS NOT ALTERED. PRN IV ZOFRAN WAS ADMINISTERED. PATIENT'S GOWN AND LINENS CHANGED. PATIENT'S PEG TUBE WAS HOOKED TO DEPENDENT DRAINAGE, PER DR. NICHOLS, TO WHICH 150 MLS OF REDDISH BROWN DRAINAGE ACCUMULATED OVER THE NEXT 1-2 HOURS.
--- NOTE | 2018-09-14 15:47 | NUR ---
MATHIEU talked with this am to inform them that [facility] was at this time the only option. He was upset and wanted to call [employer] himself. His daughter called and they requested assistance in filling out a form for out of network approval. MATHIEU faxed to Sergei at [facility] who assisted in filling it out and signed. IT was sent to [facility] and [facility]. MEIR and MATHIEU met with and daughter, chu, and called [employer]. They report it could be up to 72 hours if not labeled urgent. Patients met with MATHIEU and asked if they could still go to [facility]. MATHIEU informed him that we are waiting on insurance auth but yes they were in network. He would like to cancel plans to go to and go to [facility] in the morning (09/14) if possible. MATHIEU called Sergei who reports they are still waiting on auth but we can plan on tomorrow for transfer to [place]. 3:53pm. Sergei called this mathieu to inform her they have auth and to set up transfer tomorrow am. MATHIEU set a tentative time of 10 [address] Will inform dr, nurse, EMS, and family.
--- NOTE | 2018-09-14 19:21 | NUR ---
BEDSIDE REPORT GIVEN TO AMINATA GAVIRIA.
--- NOTE | 2018-09-14 22:49 | NUR ---
PT REFUSING TO HAVE ORAL CARE DONE.
[2018-09-15] VITALS (611 sets, daily range): BP systolic 124–146; BP diastolic 61–75; PULSE 80–83; TEMP 97.3–98.9; O2SAT 83–100
[2018-09-15 05:19] LABS: HEMATOCRIT 28.5 % (37.0-47.0); HEMOGLOBIN 9.2 g/dl (12.5-16.0); MEAN CELL VOLUME 98 fl (80.0-100.0); MEAN CORPUSCULAR HEMOGLOBIN 32 pg (27.0-31.0); MEAN CORPUSCULAR HGB CONC 32 g/dl (33.0-37.0); MEAN PLATELET VOLUME 10.1 fl (7.4-10.4); PLATELET COUNT 155 K/mm3 (130-400); RED BLOOD COUNT 2.92 M/mm3 (4.10-5.30); REDCELL DISTRIBUTION WIDTH-CV 12.4 % (11.5-14.5)
--- NOTE | 2018-09-15 05:27 | NUR ---
NO SEDATION VACATION PT ALREADY AWAKE AND FOLLOWING COMMANDS. DENIES ANY PAIN SHE SHAKES HER HEAD WHEN BEING ASKED. WILL CONTINUE TO MONITOR.
[2018-09-15 05:34] LABS: CALCIUM 8.1 mg/dL (8.4-10.2); CREATININE, serum 0.66 (0.52-1.25); POTASSIUM 3.8 mmol/L (3.4-5.0)
--- NOTE | 2018-09-15 05:56 | NUR ---
CRITICAL LAB OF CHLORIDE-89 AND CO2- 43 REPORTED TO [facility].
[2018-09-15 05:59] LABS: ARTERIAL BLD GAS O2 SATURATION 95.8 % (92-100); ARTERIAL BLD GAS TCO2 CT 43.3; ARTERIAL BLOOD GAS BASE EXCESS 14.9 (-2-2); ARTERIAL BLOOD GAS HCO3 41.4 meq/L (22-26); ARTERIAL BLOOD GAS PO2 87.5 mmHg (80-100); ARTERIAL BLOOD GAS pH 7.44 (7.35-7.45)
--- NOTE | 2018-09-15 06:20 | NUR ---
PT LEAVING FOR [facility] TODAY. WEANING NOT DONE.
--- NOTE | 2018-09-15 07:00 | NUR ---
RECEIVED BEDSIDE REPORT FROM AMINATA GAVIRIA.
--- NOTE | 2018-09-15 09:00 | NUR ---
SEDATION REDUCED PER DR. FRANCIS'S ORDER.
--- NOTE | 2018-09-15 09:30 | NUR ---
SEDATION STOPPED PER DR. FRANCIS ORDER.
--- NOTE | 2018-09-15 10:45 | NUR ---
PATIENT LEAVES WITH AND EMS CREW AT THIS TIME. REPORT WILL BE CALLED TO [facility] [place].
--- NOTE | 2018-09-15 10:45 | NUR ---
PATIENT SENT WITH EMS AT THIS TIME FOR TRANSFER TO [facility] [place].
--- NOTE | 2018-09-15 11:17 | NUR ---
Patient dc today by ambulance to [facility] in [place]. Discharge orders faxed and report number provided to the nurse.
--- NOTE | 2018-09-15 11:29 | NUR ---
CALLED REPORT TO AMINATA NGUYEN AT [facility] AT [facility] [place].
== END 2018-09-15 10:45 | disposition short-term general hospital (02) | DRG 4 ==
LOC: COL.ER 19:47 → ICU 21:10
PROVIDERS: Anesthesiology Critical Care Medicine; Emergency Medicine; Internal Medicine Pulmonary Disease; Nurse Practitioner; Nurse Practitioner Family; ADMIT Family Medicine
PROC: 0BH17EZ Insertion of Endotracheal Airway into Trachea, Via Natural or Artificial Opening (ICD-10-PCS; principal; 2018-09-07)
PROC: 5A1955Z Respiratory Ventilation, Greater than 96 Consecutive Hours (ICD-10-PCS; 2018-09-07)
PROC: 02HV33Z Insertion of Infusion Device into Superior Vena Cava, Percutaneous Approach (ICD-10-PCS; 2018-09-08)
PROC: 0DH63UZ Insertion of Feeding Device into Stomach, Percutaneous Approach (ICD-10-PCS; 2018-09-13)
PROC: 0B110F4 Bypass Trachea to Cutaneous with Tracheostomy Device, Open Approach (ICD-10-PCS; 2018-09-14)
DX: J18.9 Pneumonia, unspecified organism (principal); I21.A1 Myocardial infarction type 2; J96.22 Acute and chronic respiratory failure with hypercapnia; J96.21 Acute and chronic respiratory failure with hypoxia; D68.51 Activated protein C resistance; E87.2 Acidosis; J44.0 Chronic obstructive pulmonary disease with (acute) lower respiratory infection; J44.1 Chronic obstructive pulmonary disease with (acute) exacerbation; R13.10 Dysphagia, unspecified; D64.9 Anemia, unspecified; I48.91 Unspecified atrial fibrillation; I10 Essential (primary) hypertension; J44.9 Chronic obstructive pulmonary disease, unspecified; R00.1 Bradycardia, unspecified; E83.39 Other disorders of phosphorus metabolism; E03.9 Hypothyroidism, unspecified; R74.0 Nonspecific elevation of levels of transaminase and lactic acid dehydrogenase [LDH]; Z79.01 Long term (current) use of anticoagulants; Z90.710 Acquired absence of both cervix and uterus; Z85.43 Personal history of malignant neoplasm of ovary; Z86.711 Personal history of pulmonary embolism; Z87.891 Personal history of nicotine dependence; Z88.2 Allergy status to sulfonamides
CPT/HCPCS: 99223-AI; 99231-AI; 99232-AI; 99233-AI; 99239; A4216; A4314; C1751; J0282; J0330; J0456; J0692; J1650; J1940; J2250; J2405; J2543; J2704; J2920; J2930; J3010; J3370; J3475; J7030; J7050; J7060; J7120; J7512

== ENCOUNTER 2018-09-28 17:09 | Inpatient (IN) | payer BC ==
[~2018-09-28] VITALS: Ht 165.1 cm; Wt 79.0 kg
[~2018-09-28 17:09] MED LIST changes: +ANORO IH; +COMBIRESP IH; +COUMADIN 1MG1 MG/TAB PO; +COUMADIN 5MG5 MG/TAB PO; +D3-5050000 IU PO; +DALIRESP500 MCG PO; +DRISDOL50000 IU PO; +MULTI VITAMINS1 TAB PO; +SYNTHROID0.075 MG/T PO
[2018-09-28] MEDS ORDERED: K-TAB20 PO (17:20)
[2018-09-28] MEDS ORDERED: FERROUS SU325 MG/TAB PO (17:21)
[2018-09-28] MEDS ORDERED: MELAT3MGTAB PO (17:22)
[2018-09-28] MEDS ORDERED: COUMADIN 6MG6 MG/TAB PO (17:24)
[2018-09-28] MEDS ORDERED: ATROVENT I0.2 MG/1 M IH ×2 (18:08→18:14)
[2018-09-28] MEDS ORDERED: CORDARONE200 MG/TAB PO (18:09)
[2018-09-28] MEDS ORDERED: LOVENOX 100100 MG/ML SQ (18:10)
[2018-09-28] MEDS ORDERED: MAG-OX 400400 MG/TAB PO (18:11)
[2018-09-28] MEDS ORDERED: ATIVAN2 MG PO (18:15)
[2018-09-28] MEDS ORDERED: PROTONIX 40MG T40 MG PO (18:15)
[2018-09-28] MEDS ORDERED: ALBUTEROL0.83 MG/ML IH (18:17)
[2018-09-28] MEDS ORDERED: GLUTOSE 1515 GM PO (18:18)
[2018-09-28] MEDS ORDERED: PULMICORT0.5 MG/2 M IH (18:19)
[2018-09-28] MEDS ORDERED: ZOFRAN ODT4 MG PO (18:20)
[2018-09-28] MEDS ORDERED: TIROSINT75 MC1 PO (18:22)
[2018-09-28] MEDS ORDERED: DALIRESP500 MCG PO (18:23)
[2018-09-28] MEDS ORDERED: PREDNISONE20 MG PO (18:26)
[2018-09-28] MEDS ORDERED: LASIX 40MG TABL40 MG PO (18:27)
[2018-09-28] MEDS ORDERED: GLUCAGON EMERGEN1 M1 SQ (18:31)
[2018-09-28] MEDS ORDERED: SODIUM CHLORIDE4 ML IH (18:31)
--- NOTE | 2018-09-28 18:50 | NUR ---
Patient in via cart accompanied by transportation company employees and . Patient alert and oriented x 4. Denies pain. Assisted min 1 assist to recliner. Oriented to room and call light and supper meal ordered.
[2018-09-28 19:23] VITALS: BP 122/57; PULSE 65; TEMP 98.5
--- NOTE | 2018-09-28 22:00 | NUR ---
Patient sits up in recliner. HS meds all reviewed and given. Accurate weight scanned to pharmacy for lovenox dosing. See admission assessment.
--- NOTE | 2018-09-28 23:25 | NUR ---
CPAP applied earlier around 2300 and patient states mask is not like hers at home and feels like she can't breathe. Oxygen sat 97% via 4 L oxygen blow in. RT notified that cpap removed and oxygen on at 3lpnc. RT into see patient. Patients states will bring hers in from home.
--- NOTE | 2018-09-29 03:14 | NUR ---
Patient resting quietly in bed. o2 on 3lpnc. staying with patient through the night.
[2018-09-29 05:16] VITALS: BP 99/49; PULSE 60; TEMP 98.4
[2018-09-29 05:54] VITALS: BP 99/49; PULSE 60; TEMP 98.4
--- NOTE | 2018-09-29 06:23 | NUR ---
Reports slept off and on through the night. Denies needs.
--- NOTE | 2018-09-29 10:28 | NUR ---
Initial visit; Patient thanked [employer] for looking in on her and offering prayer and God's blessings. [employer] will follow up.
--- NOTE | 2018-09-29 10:46 | NUR ---
SW met with patient for intitial intake, as patient is new to [facility]. Prior to patient's hospitalization, patient lived independently at home with her . Patient's PCP is Dr Trisha Rao and she obtains prescriptions from [facility]. Patient uses home O2 and cpap but no other DME is used. Patient does not have home health services. Patient does not have a DPOA-HC and is not interested in completing one at this time. SW informed patient of IPR team conferences on as well as Family Conferences. SW reported that the IPR would like to have a family conference on Friday 10/06. Patient reported her will visit later today and SW can speak with him about the family conference at that time.
[2018-09-29 16:31] VITALS: BP 115/44; PULSE 68; TEMP 97.6
--- NOTE | 2018-09-29 17:30 | NUR ---
Patient attended all therapies today. She received a shower this morning. Following the shower trach dressing was changed per protocol. Trach opening showed no redness or irritation. There was some bloody dark drainage to the bandage that was removed. Secure lock for peg tube was pulling away from skin so was secured with tegaderm to keep in place. Patient's stayed the night last night and has been available to assist his this shift. Patient did have some pain, but declined any pain meds. Will continue to monitor. Patient was set up only for eating. Her did her hair for her this shift. He put it in a pony tail for her. Patient tolerated diet well this shift.
--- NOTE | 2018-09-29 20:00 | NUR ---
RN MED SURG assisting patient get ready for bed.
--- NOTE | 2018-09-29 20:51 | NUR ---
When patient arrived on 09/28/18 weight was not completed on standing scale and gave a verbal weight. Pharmacy dosed the Lovenox injection via that weight which was less then the original order had read. The correct weight was taken of 78.2 kg and the nurse received the okay to put in the original order of Lovenox 100 mg SQ BID. See order in chart. EMR has been updated.
--- NOTE | 2018-09-29 21:15 | NUR ---
brought in patients home cpap and set up with oxygen at 4l per bleed in. Patient rests in bed. Denies pain. HS meds all reviewed and given. Reviewed labs to be drawn in am. Patient requested ativan to aid with sleep for she had frequent awakenings last night-given.
--- NOTE | 2018-09-30 02:18 | NUR ---
Patient rests with eyes closed. CPAP on.
[2018-09-30 04:09] VITALS: BP 111/46; PULSE 67; TEMP 97.5
--- NOTE | 2018-09-30 04:30 | NUR ---
Patient awake when nurse in on rounds. Denies pain. Vitals obtained and reviewed oxygen sat of 93% with patient. Patient reports she is dressed in what she will where to therapy.
--- NOTE | 2018-09-30 06:08 | NUR ---
PATIENT REPORTS SLEPT WELL LAST NIGHT. BACK INTO VISIT.
[2018-09-30 07:06] LABS: GRAN # 6.6 (1.4-6.5); GRAN % 85.6 % (42.2-75.2); HEMOGLOBIN 10.9 g/dl (12.5-16.0); LYMPH # 0.5 (1.2-3.4); LYMPH % 6.7 % (20.0-51.0); MEAN CELL VOLUME 98 fl (80.0-100.0); MEAN CORPUSCULAR HEMOGLOBIN 31 pg (27.0-31.0); MEAN CORPUSCULAR HGB CONC 32 g/dl (33.0-37.0); MEAN PLATELET VOLUME 9.6 fl (7.4-10.4); MONO # 0.5 (0.1-0.6); MONO % 6.3 % (1.7-9.3); PLATELET COUNT 211 K/mm3 (130-400); REDCELL DISTRIBUTION WIDTH-CV 13.5 % (11.5-14.5)
[2018-09-30 07:09] LABS: HEMATOCRIT 34.2 % (37.0-47.0); INR 2.4 (0.8-3.0); PROTHROMBIN TIME 28.4 SECONDS (9.7-12.8)
[2018-09-30 07:14] LABS: ALBUMIN 3.8 gm/dL (3.5-5.0); BILIRUBIN,TOTAL 0.3 mg/dL (0.0-1.0); CALCIUM 9.7 mg/dL (8.4-10.2); CREATININE, serum 0.93 (0.52-1.25); POTASSIUM 4.7 mmol/L (3.4-5.0); TOTAL PROTEIN 6.8 gm/dL (6.4-8.2)
--- NOTE | 2018-09-30 08:34 | NUR ---
Report from AMINATA Hagen. NYASIA Lanier assisted prior to breakfast. visiting, following pt in [place] with PT.
--- NOTE | 2018-09-30 13:25 | NUR ---
Dr. Doherty informed of critical chloride of 87.
[2018-09-30 16:12] VITALS: BP 122/54; PULSE 80; TEMP 98.2
--- NOTE | 2018-09-30 20:44 | NUR ---
PEG flushed without difficulty this am, changed dressing of yellow-green drainage, redness around site. Pt's , son, and three grandchildren visiting at suppertime. Pt denies pain. O2 PNC. Report to AMINATA Olivas.
--- NOTE | 2018-09-30 21:15 | NUR ---
PT RESTING IN BED. A&O X4. AT BED SIDE. AGGRIVATED ABOUT O2 TUBING. PROVIDED EXTENSION TUBING. O2 AT 3L N/C WHILE AWAKE. THEN WHEN ON CPAP SHE WILL BE ON 4L BLED IN. NO RESP DISTRESS. REQUEST ATIVAN PRIO RTO CPAP FOR SLEEP. REFUSES MELATONIN. PEG TUBE SITE RED WITH TANNISH DRG NOTED. AREA CLEANED WITH NS THEN APPLIED DRAIN DRSG. BRUISED ABD FROM LOVENOX INJ. STAYING THE NIGHT. CALL LIGHT IN REACH. BED ALARM SET.
[2018-10-01 05:45] VITALS: BP 122/47; PULSE 67; TEMP 98.5
--- NOTE | 2018-10-01 13:27 | NUR ---
Follow up visit; Patient states she is feeling better and requested prayer again today. [employer] offered prayer and God's continued blessings. [employer] will follow up.
[2018-10-01 13:38] LABS: ARTERIAL BLD GAS O2 SATURATION 97.5 % (92-100); ARTERIAL BLD GAS TCO2 CT 35.1; ARTERIAL BLOOD GAS BASE EXCESS 6.6 (-2-2); ARTERIAL BLOOD GAS HCO3 33.3 meq/L (22-26); ARTERIAL BLOOD GAS PCO2 58.4 mmHg (35-45); ARTERIAL BLOOD GAS PO2 109.3 mmHg (80-100); ARTERIAL BLOOD GAS pH 7.37 (7.35-7.45)
[2018-10-01 15:47] VITALS: BP 117/50; PULSE 69; TEMP 97.9
--- NOTE | 2018-10-01 23:22 | NUR ---
PT RETURNING FROM BATHROOM. SLOW STEADY GAIT. PT REPORTED BM BUT FLUSHED IT. O2 3L NC. WASHED HANDS AT THE SINK AND RETURNED TO BED. IN GOOD SPIRITS. ASSESSMENT COMPLETED. ATIVAN GIVEN FOR SLEEP. CPAP WITH O2 STARTED IN LINE AT 4L. PT READY FOR SLEEP. IS GOING HOME TONIGHT. CALL LIGHT IN REACH. BED ALARM SET.
[2018-10-02 05:27] VITALS: BP 114/46; PULSE 61; TEMP 98
--- NOTE | 2018-10-02 05:42 | NUR ---
PT RELATES RT CAME IN EARLIER TO CHECK O2 SAT WHICH WERE 90% AND THEY INCREASED LITER FLOW TO 5. O2 SAT NOW 95% ON NC.
--- NOTE | 2018-10-02 08:00 | NUR ---
PT IS SITTING UP IN HER BED WHEN NURSE COMES IN. SHE HAS EATEN 100% MEAL. TRACH SITE IS CDI NO SHADOWING NOTED. NO DRESSING CHANGE DONE AT THIS TIME. PT GIVEN HER AM MEDS AND SHE TOOK THEM WITH APPLESAUCE AND DID VERY WELL. NO PAIN AT THIS TIME. PRESENT AND CONVERSING WITH PT. PT LEAVES WIT THERAPY AT 0920
[2018-10-02 12:23] LABS: CALCIUM 10.1 mg/dL (8.4-10.2); CREATININE, serum 0.9 (0.52-1.25); POTASSIUM 4.6 mmol/L (3.4-5.0)
--- NOTE | 2018-10-02 15:22 | NUR ---
UP TO BR TO VOID. PT IN BED. IN TO VISIT
[2018-10-02 18:13] VITALS: BP 113/51; PULSE 69; TEMP 98.2
--- NOTE | 2018-10-02 21:00 | NUR ---
PT RETURNING FROM BR WITH WALKER- PT AHD VOID WITH MED SOFT BROWN BM. STOPPED AT SINK WASHED HANDS ANS FACE. ABLE TO GET INTO BED PER SELF. O2/3L NC. SET UP CPAP WITH O2. ATIVAN GIN FOR SLEEP. IS STANDING THE NIGHT.
[2018-10-03 06:00] VITALS: BP 117/53; PULSE 66; TEMP 98.2
--- NOTE | 2018-10-03 08:10 | NUR ---
Report from AMINATA Olivas. Pt to chair for breakfast with O2@3LPNC. Cont to have tremors. Glasses and yellow grippers in place. had breakfast in room with pt. Pt has gatorade on tray. Takes pills whole with applesauce, large potassiums cut in half. Enc IS use, 1250 ml.
--- NOTE | 2018-10-03 09:01 | NUR ---
Education/Demonstration for to change trache and PEG site dressing and flushed PEG.
--- NOTE | 2018-10-03 09:58 | NUR ---
took pt in wheelchair out of room
--- NOTE | 2018-10-03 12:41 | NUR ---
Pt ate sitting bedside with , daughter and granddaughter visiting. Using IS properly.
[2018-10-03 16:23] VITALS: BP 122/48; PULSE 80; TEMP 98.7
--- NOTE | 2018-10-03 21:00 | NUR ---
ASSITED TO BR WITH WALKER. STEADY SLOW GAIT. VOIDED WITH LG BROWN BM. TO SINK HS CARES DONE IN DEPENDENTLY. TO BED. AT BED. VERY SUPPORTIVE.
[2018-10-04 05:58] VITALS: BP 117/49; PULSE 59; TEMP 98.2
[2018-10-04 06:38] LABS: CALCIUM 9.5 mg/dL (8.4-10.2); CREATININE, serum 1.03 (0.52-1.25); MAGNESIUM 2.4 mg/dL (1.6-2.3); POTASSIUM 4.2 mmol/L (3.4-5.0)
[2018-10-04 12:53] LABS: INR 2.9 (0.8-3.0); PROTHROMBIN TIME 35.1 SECONDS (9.7-12.8)
--- NOTE | 2018-10-04 13:27 | NUR ---
Warfarin Initial Dosing Pharmacy Note Ordering Provider: Igor Doherty MD Indication: Hypercoagulable State-Factor V Leiden deficiency, hx PE w/ IVC filter LABS: INR 2.9 (10/04/18), INR 2.4 (09/30/18) Recommendation: Decrease Warfarin to 5 mg po qHS. Patient has been receiving Warfarin 6 mg po qHS from 09/28/18-10/03/18. Recheck INR tomorrow. Pharmacy will continue to follow. Home Regimen: Warfarin 6 mg po qHS
--- NOTE | 2018-10-04 14:36 | NUR ---
Patient resting in recliner at this time, call light in reach and alarm is on. Patient tolerating diet well this shift. Attended all therapies today. Denied pain at this time. Using the I.S. appropriatly. Patient received her breathing treatment this morning. Talkative this afternoon.
--- NOTE | 2018-10-04 15:04 | NUR ---
SW met with the patient to introduce myself and to discuss weekend care. Patient reports all is well. SW will continue to follow.
[2018-10-04 15:24] VITALS: BP 117/49; PULSE 71; TEMP 98.2
--- NOTE | 2018-10-05 02:00 | NUR ---
Patient has been resting with eyes closed. CPAP on.
--- NOTE | 2018-10-05 05:30 | NUR ---
Awakened for am meds. Denies pain or needs. o2 switched to Nasal canula and applied 3l. States slept well tonight.
[2018-10-05 05:49] VITALS: BP 112/47; PULSE 60; TEMP 98
[2018-10-05 07:06] LABS: INR 3.2 (0.8-3.0); PROTHROMBIN TIME 38.2 SECONDS (9.7-12.8)
--- NOTE | 2018-10-05 10:56 | NUR ---
Patient attending group therapy at this time. Patient's did the dressing change to the trache site this morning using proper protocol and voiced understanding with training. Patient tolerated well. Peg tube site has some yellow/green drainage and is reddened around the opening. Area was cleaned and new aquacel AG and gauze applied to area. Patient tolerated well. Peg tube flushed well this morning. Will continue to monitor.
--- NOTE | 2018-10-05 13:21 | NUR ---
JEMIMA contacted Rob about moving the family meeting scheduled for 10/06 to 1315 vs. 9:15. Rob was in agreeance. JEMIMA will continue to follow.
--- NOTE | 2018-10-05 13:39 | NUR ---
Warfarin Follow-up Pharmacy Note Current regimen: Warfarin 5 mg po qHS x1 dose last night, decreased from Warfarin 6 mg po qHS LABS: INR 3.2 Changes in therapy: Will hold Warfarin dose tonight as INR supratherapeutic. Will recheck INR tomorrow and assess restarting Warfarin at that time.
[2018-10-05 15:59] VITALS: BP 110/49; PULSE 74; TEMP 98.4
--- NOTE | 2018-10-05 22:23 | NUR ---
Patient rests in bed with eyes closed. Was given ativan earlier to aid with sleep per patient request.
--- NOTE | 2018-10-06 02:19 | NUR ---
Patient continues resting with eyes closed. CPAP on. Respirations with ease.
[2018-10-06 05:31] VITALS: BP 108/52; PULSE 62; TEMP 98.1
--- NOTE | 2018-10-06 05:43 | NUR ---
States has been awake since 429. CPAP turned off and o2 on 3lpnc. Denies needs.
[2018-10-06 06:52] LABS: INR 2.4 (0.8-3.0); PROTHROMBIN TIME 28.8 SECONDS (9.7-12.8)
[2018-10-06 07:00] LABS: CALCIUM 9.2 mg/dL (8.4-10.2); CREATININE, serum 0.92 (0.52-1.25); POTASSIUM 4.1 mmol/L (3.4-5.0)
[2018-10-06 07:15] LABS: HEMOGLOBIN 10.9 g/dl (12.5-16.0); MEAN CELL VOLUME 101 fl (80.0-100.0); MEAN CORPUSCULAR HEMOGLOBIN 31 pg (27.0-31.0); MEAN CORPUSCULAR HGB CONC 31 g/dl (33.0-37.0); MEAN PLATELET VOLUME 9.6 fl (7.4-10.4); PLATELET COUNT 235 K/mm3 (130-400); REDCELL DISTRIBUTION WIDTH-CV 13.9 % (11.5-14.5)
[2018-10-06 07:18] LABS: HEMATOCRIT 35.4 % (37.0-47.0)
[2018-10-06 08:10] LABS: EOSINOPHIL 5 % (0-4); HYPOCHROMIA 3+; LYMPHOCYTE 20 % (20.0-51.0); MYELOCYTE 4 % (0-0); NEUTROPHILS 66 % (42.0-75.2); PLATELET ESTIMATE NORMAL (NORMAL)
--- NOTE | 2018-10-06 09:14 | NUR ---
Pt is awake and A/Ox4, sitting up in recliner. is at bedside. Pt states she is having 3/10 discomfort to her PEG tube site, but denies any need for pain medication. PEG tube site slightly reddened, with scant amount of light yellow drainage. Per husbands report reddeness is less than it has been in previous days. Site was cleaned and new dressing applied. Dressing to throat from previous trach site is CDI. Pt remains on 3L O2 per NC, resp. even and unlabored at rest. Pt denies any other needs.
--- NOTE | 2018-10-06 12:23 | NUR ---
Warfarin Follow-up Pharmacy Note Current regimen: Held Warfarin dose for 10/05/18 due to supratherapeutic INR LABS: INR 2.4 Changes in therapy: Resume Warfarin 5 mg po qHS tonight. Pharmacy will continue to follow and monitor daily INR levels.
--- NOTE | 2018-10-06 14:05 | NUR ---
JEMIMA met with the patient to discuss discharge recommendation of outpatient PT/OT. The pt chose [facility]; fax# phone # . The pt is being recommended a shower seat, toilet riser with handles; JEMIMA contacted Staneileen with the [facility] [employer] regarding donated equipment. JEMIMA left message. JEMIMA provided local resources to pt and pt's for DME. JEMIMA will continue to follow.
--- NOTE | 2018-10-06 16:26 | NUR ---
JEMIMA met with the patient and her to discuss Team Conference II. The pt did not have questions at this time. The team is recommending shower seat with back and toilet riser with handles. JEMIMA contacted [facility] and she reports they do have shower seats and may have toilet risers. SW to follow up with [facility] to check if the shower seat has a back. JEMIMA will continue to follow.
--- NOTE | 2018-10-06 16:38 | NUR ---
Pt has had an overall uneventful shift. She continues to have soreness to PEG tube site and legs but denies any need for pain medication. is at bedside, denies any needs.
[2018-10-06 18:53] VITALS: BP 111/49; PULSE 72; TEMP 97.9
[2018-10-07 05:20] VITALS: BP 105/50; PULSE 61; TEMP 97.3
[2018-10-07 07:16] LABS: INR 1.7 (0.8-3.0)
--- NOTE | 2018-10-07 11:36 | NUR ---
pt returned to room after therapy.
--- NOTE | 2018-10-07 13:28 | NUR ---
PT HAD LG SOFT FORMED BM THIS SHIFT.
[2018-10-07 17:55] VITALS: BP 118/51; PULSE 74; TEMP 98.2
--- NOTE | 2018-10-07 20:00 | NUR ---
PT RESTING IN RECLINER. AMB TO BR. SLOW STEADY GAIT W/WALKER. O2 3L NC. NO RESP DITRESS. DENIES PAIN. ALITTLE DISCOMFORT LEGS IN LEGS. PT EXCITED ABOUT GOING HOME ON THURSDAY.
--- NOTE | 2018-10-07 20:32 | NUR ---
PT RESTING IN BED. VERY PLEASANT. O2 3L NC. TRACH DRSG CDI. NO RESP DITRESS. PEG TUBE DRSG CHANGED. NOTED REDNESS AROUND PEG TUBE SITE WITH SM AMT OF PINKISH EXUDATE. CLEANED WITH DAKINS CINTHYA THEN APPLIED AQUA AG GAUZE STRIP AROUNG PEG TUBE SITE THE DRAI GAUZE. PT EZEQUIEL WELL. DENIES PAIN. SEE MAR FOR ATIVAN GIVEN PRIOT TO CPAP APPLIED.
--- NOTE | 2018-10-08 05:48 | NUR ---
CPAP OFF AT THIS TIME. O2 AT 3L NC STARTED. PT DENIES FURTHER NEEDS.
[2018-10-08 05:54] VITALS: BP 117/49; PULSE 60; TEMP 98.4
[2018-10-08 06:53] LABS: INR 1.7 (0.8-3.0); PROTHROMBIN TIME 20.5 SECONDS (9.7-12.8)
--- NOTE | 2018-10-08 12:47 | NUR ---
Warfarin Follow-up Pharmacy Note Current regimen: Warfarin 5 mg po qHS LABS: INR 1.7 Changes in therapy: Will increase Warfarin to 6 mg po qHS. Pharmacy will continue to monitor and follow daily INR levels.
[2018-10-08 13:58] VITALS: BP 126/47; PULSE 75; TEMP 97.8
--- NOTE | 2018-10-08 17:30 | NUR ---
Patient takes pills whole with water, larger pills cut in half and takes with applesauce. Trache site was CDI with no redness this AM, but following shower became red and irritated. New dressing was applied with gauze and paper tape. Patient reported that following dressing change area was not bothering her anymore, but was still slightly pink. There was some yellow/clear drainage coming from trache site when dressing was changed. Will continue to monitor. Peg tube flushed with no difficulties. Peg tube site still showing some slight pinkness, and has tong drainage to the area. Area was cleaned and applied Aquacel AG around beg tube opening and secured with gauze. Will continue to monitor. Patient's Rob stated that he would be spending the night tonight in patient room. This was communicated to the night nurse. Patient denied pain this shift.
--- NOTE | 2018-10-08 19:30 | NUR ---
Pt resting in bed. at bedside. No distress noted. Pt denies pain at this time. Respirations even and unlabored. Lungs clear- bases diminished. O2@3L via NC. Pt wears CPAP at HS. Abdomen soft, nontender. BS+. LLE PEG tube- clamped. Dressing appears to be clean dry and intact. Will change tonight. Dressing to old tracheostomy site is clean dry and intact. Skin tear to R AC covered with tegaderm. Pt denies needs at this time. Will continue to monitor.
--- NOTE | 2018-10-08 21:00 | NUR ---
PEG tube irrigated with 30 mL water. PEG tube dressing changed. Old dressing removed. Small amount of greenish drainage noted on silver gauze. Site cleansed with Dakins solution. New silver gauze applied. Covered with drainage sponge. Well tolerated by patient. Area around PEG tube is reddened. HS medications given. Blood sugar within normal limits. No insulin required.
--- NOTE | 2018-10-08 22:10 | NUR ---
Pt awake in bed. CPAP on with O2@4L bleed in. No distress noted. Pt denies needs.
--- NOTE | 2018-10-09 05:30 | NUR ---
Pt awake and alert this AM. CPAP removed and O2 at 3L via NC placed on patient. AM meds given with applesauce. Accucheck WNL. No insulin required. VSS. Pt slept well throughout the night with no complaints.
[2018-10-09 05:48] VITALS: BP 105/42; PULSE 58; TEMP 97.5
[2018-10-09 07:06] LABS: INR 1.8 (0.8-3.0); PROTHROMBIN TIME 20.9 SECONDS (9.7-12.8)
--- NOTE | 2018-10-09 13:41 | NUR ---
A walker is being recommended for the patient. JEMIMA presented the DME choice form to the patient and pt chose [facility] and signed the form. A copy was provided to the patient and original was placed in the chart. JEMIMA faxed physician order form, HNP and PT notes to . JEMIMA contacted [facility] and left a message. JEMIMA will continue to follow.
--- NOTE | 2018-10-09 13:56 | NUR ---
0800 - PT IS SITTING UP IN RECLINER WITH MEAL IN FRONT OF HER. SHE TAKES HER MEDS WITH APPLESAUCE ONE AT A TIME. TRACH DRESSING IN PLACE, PEG TUBE DRESSING IN PLACE AND CLEAR DRESSING TO RIGHT INNNER ELBOW ARE IS CDI. 0925 - LEAVES WITH STAFF TO THERAPY. 1030 - PT IS BACK AND SITTING IN RECLINER. 1200 - LUNCH BROUGHT INTO PT. NO PAIN OR NEEDS.
--- NOTE | 2018-10-09 15:25 | NUR ---
RESTING IN BED WATCHING TV WITH
[2018-10-09 16:59] VITALS: BP 109/47; PULSE 67; TEMP 98.5
--- NOTE | 2018-10-10 01:54 | NUR ---
Patient report received from Vito Buchanan at shift change. Upon assessment at this time patient is resting comfortably in bed, denies significant pain or n/v. Scant drainage to silver dressing around PEG site, site cleaned with Dakins, silver dressing and drain sponge applied. Trach site dressing CDI. Patient states that she will need help switching over to her cpap before bed. No other needs reported/observed.
[2018-10-10 04:36] VITALS: BP 107/44; PULSE 59; TEMP 97.7
[2018-10-10 06:22] LABS: INR 2.3 (0.8-3.0); PROTHROMBIN TIME 27.7 SECONDS (9.7-12.8)
--- NOTE | 2018-10-10 07:05 | NUR ---
Patient report given to AMINATA Buchanan. Patient rested comfortably throughout night, watching tv in bed at this time.
--- NOTE | 2018-10-10 09:44 | NUR ---
RIGHT LL HAS CRACKLES. ENCOURAGED TO USE IS MORE OFTEN. PT IS ABLE TO GET TO 1250 WITHOUT DIFFICULTY. PEG TUBE FLUSHED WITH 30 CC WATER. PT STATES SHE HAD EARLLY THIS AM TWO SHARP PAINS IN HER RIGHT LOWER LUNG, ENCOURAGED TO USE ID
[2018-10-10 15:09] VITALS: BP 92/44; PULSE 65; TEMP 98.2
--- NOTE | 2018-10-10 19:03 | NUR ---
Pt resting in bed. No distress noted. Pt denies pain. O2@3L via NC. Respirations even and unlabored. Lungs clear. Abdomen soft, nontender. BS+. Peg tube clamped. Dressing to PEG tube site clean dry and intact. R AC skin tear tegaderm clean dry and intact. Guaze and tape to old trach site on neck clean dry and intact. Redness noted around guaze dressing on neck. Pt is Mod. Independent in room and tolerating it well. Pt denies needs. Will continue to monitor.
--- NOTE | 2018-10-10 20:18 | NUR ---
PEG tube flushed with 30 cc water. Dressing is clean dry and intact to PEG tube site. Pt states dayshift nurse changed the dressing after dinner and that it does not need to be changed again. HS medications given. CPAP hooked up with bleed in of O2@4L. No further needs noted.
[2018-10-11 05:19] VITALS: BP 116/53; PULSE 60; TEMP 97.3
--- NOTE | 2018-10-11 05:46 | NUR ---
Pt resting this AM. O2@3L via NC on. No distress noted. Pt reports she "slept pretty good" last night. Pt denies needs this AM.
[2018-10-11 07:07] LABS: PROTHROMBIN TIME 35.9 SECONDS (9.7-12.8)
--- NOTE | 2018-10-11 08:55 | NUR ---
[facility] reports they do have a walker for the pt; will deliver before pt discharges. SW to inform the pt. SW will continue to follow.
[2018-10-11 17:27] VITALS: BP 110/50; PULSE 68; TEMP 97.6
--- NOTE | 2018-10-11 19:11 | NUR ---
Patient attended all therapies today. She is currently resting in recliner is independent in her room with a walker. She is on 3 L oxygen per nasal canula. She had a little bid of blood out of her nose this morning following her shower, but patient reports that it is due to her dry nose. She stated that she did not like to use the humidified water with her oxygen. Patient's changed her trach dressing and peg tube dressing, and demonstrated proper technique. This nurse answered his questions. Follw up appointments were made today. Patient will be going in to see Dr. Ascencio at the end of this week per patient's request as there was going to be discusion about lung transplant at that visit. Patient denied pain this shift. She used her walker appropriatly. Patient's had requested that a blood gas be completed prior to her discharge. This nurse called and spoke with Dr. Doherty and Dr. Doherty said that this test could be done on an out patient basis. This was communicated to patient and her .
--- NOTE | 2018-10-11 19:22 | NUR ---
Pt up to bathroom and back to bed. Mod-Independent in room with walker. Well tolerated. Pt denies pain. Respirations even and unlabored. Lungs clear. Abdomen soft, nontender. BS+. O2@3L via NC. Will switch to CPAP at HS. PEG tube clamped with silver guaze and drain sponge around insertion site. changed dressing before leaving after change of shift- clean, dry and intact. Gauze dressing to old trach site on neck clean dry and intact. That dressing was also changed by . Pt denies needs at this time.
--- NOTE | 2018-10-11 20:20 | NUR ---
Pt sleeping upon entering room. Easily arousable. Pt is still wearing O2@3L via NC. She states she is waiting for RT to see her before she switches to her CPAP. PEG tube flushed. Pt denies further needs. Will continue to monitor.
--- NOTE | 2018-10-11 21:30 | NUR ---
Pt seen by RT. CPAP in place. No distress noted.
--- NOTE | 2018-10-12 05:40 | NUR ---
Pt sitting up in chair this AM. O2@3L via NC. No distress noted. Pt denies pain. She states she slept okay last night but woke up early. She expresses excitment for her impending discharge.
[2018-10-12 05:46] VITALS: BP 110/44; PULSE 59; TEMP 98.3
[2018-10-12 07:48] LABS: INR 3.7 (0.8-3.0)
[2018-10-12 08:01] LABS: PROTHROMBIN TIME 45.6 SECONDS (9.7-12.8)
--- NOTE | 2018-10-12 08:10 | NUR ---
Warfarin Follow-up Pharmacy Note Current regimen: Warfarin 5 mg PO QHS LABS: INR=3.7 Changes in therapy: Hold Warfarin today (10/12/18), recheck PT/INR on 10/13/18, and restart at lower dose if INR < 3.
--- NOTE | 2018-10-12 10:31 | NUR ---
Patient resting in recliner at this time, call light in reach and by her side awaiting Dr. Doherty to work on Discharge Orders so they can go home. Patient's Rob completed dressing changes to patients peg tube and trache sites. Patient denies pain this morning. Tolerated breakfast well. Took pills whole with applesauce this morning independently.
--- NOTE | 2018-10-12 10:43 | NUR ---
Received call from Lab of Critical Lab values for PT of 45.6 and INR 3.7. These critical values were reported to Dr. Mata. Pharmacy has been dosing patient's coumadin and pharmacy will have patient hold coumadin for tonight.
[2018-10-12] MEDS ORDERED: DAKIN'S 0.500 ML/1 B TOP (10:59)
[2018-10-12] MEDS ORDERED: MAG-OX 400400 MG/TAB PO (11:03)
[2018-10-12] MEDS ORDERED: K-TAB20 PO (11:03)
[2018-10-12] MEDS ORDERED: TRELEGY ELLIPT1 EACH IH (11:06)
[2018-10-12] MEDS ORDERED: COUMADIN 3MG3 MG/TAB PO (11:17)
--- NOTE | 2018-10-12 13:30 | NUR ---
The pt is to discharge home today, 10/12 with outpatient PT at [facility]. JEMIMA faxed order to Fab[facility] ; [facility] reports they received the order and will contact the pt to set up appointments. There are no additional needs at this time.
--- NOTE | 2018-10-12 14:20 | NUR ---
Patient Health Summary, Discharge Summary, and Home Meds printed and reviewed with patient and . Stressed importance of follow up appointments. Called prescriptions for Potassium chloride, Abilify, Ferrous Sulfate, Amiodarone, Pantoprazole and Lasix to pharmacy of choice. Belongings gathered by including glasses, home oxygen concentrator, cell phone and party plan demonstrator. Patient transported via [facility]NAL[facility] and [facility] for ride home with . Patient and denied any questions.
== END 2018-10-12 14:15 | disposition home or self-care (01) | DRG 947 ==
PROVIDERS: Internal Medicine Critical Care Medicine; ADMIT Internal Medicine
DX: R53.81 Other malaise (principal); J96.22 Acute and chronic respiratory failure with hypercapnia; D68.51 Activated protein C resistance; E46 Unspecified protein-calorie malnutrition; D50.9 Iron deficiency anemia, unspecified; J44.9 Chronic obstructive pulmonary disease, unspecified; I48.91 Unspecified atrial fibrillation; G72.9 Myopathy, unspecified; E89.0 Postprocedural hypothyroidism; R25.1 Tremor, unspecified; Z79.01 Long term (current) use of anticoagulants; Z93.1 Gastrostomy status; Z88.2 Allergy status to sulfonamides; Z87.891 Personal history of nicotine dependence; Z90.710 Acquired absence of both cervix and uterus; Z86.711 Personal history of pulmonary embolism
CPT/HCPCS: 99222; 99223-AI; 99232-AI; 99233-AI; 99239; A9284; J1650; J1815; J7512

== ENCOUNTER → 2018-10-20 | Outpatient (CLI) | payer BC ==
[~2018-10-20] MED LIST changes: +ALBUTEROL0.83 MG/ML IH; +ATIVAN2 MG PO; +ATROVENT I0.2 MG/1 M IH; +CORDARONE200 MG/TAB PO; +COUMADIN 3MG3 MG/TAB PO; +COUMADIN 6MG6 MG/TAB PO; +DAKIN'S 0.500 ML/1 B TOP; +FERROUS SU325 MG/TAB PO; +GLUCAGON EMERGEN1 M1 SQ; +GLUTOSE 1515 GM PO; +K-TAB20 PO; +LASIX 40MG TABL40 MG PO; +LOVENOX 100100 MG/ML SQ; +MAG-OX 400400 MG/TAB PO; +MELAT3MGTAB PO; +PREDNISONE20 MG PO; +PROTONIX 40MG T40 MG PO; +PULMICORT0.5 MG/2 M IH; +SODIUM CHLORIDE4 ML IH; +TIROSINT75 MC1 PO; +TRELEGY ELLIPT1 EACH IH; +ZOFRAN ODT4 MG PO
[2018-10-20 14:21] LABS: ARTERIAL BLD GAS TCO2 CT 40.3; ARTERIAL BLOOD GAS HCO3 38.5 meq/L (22-26); ARTERIAL BLOOD GAS PCO2 59.4 mmHg (35-45); ARTERIAL BLOOD GAS PO2 78.4 mmHg (80-100); ARTERIAL BLOOD GAS pH 7.43 (7.35-7.45)
== END ==
LOC: COL.PUL 13:50
PROVIDERS: Internal Medicine
DX: J96.12 Chronic respiratory failure with hypercapnia (principal)

== ENCOUNTER → 2018-12-27 | Outpatient (CLI) | payer BC ==
[2018-12-27 13:17] LABS: ARTERIAL BLD GAS O2 SATURATION 93.4 % (92-100); ARTERIAL BLD GAS TCO2 CT 43.8; ARTERIAL BLOOD GAS BASE EXCESS 13.9 (-2-2); ARTERIAL BLOOD GAS HCO3 41.7 meq/L (22-26); ARTERIAL BLOOD GAS PCO2 68.7 mmHg (35-45); ARTERIAL BLOOD GAS PO2 66.5 mmHg (80-100)
== END ==
LOC: COL.PUL 12:10
PROVIDERS: Internal Medicine Pulmonary Disease
DX: J96.12 Chronic respiratory failure with hypercapnia (principal)

== ENCOUNTER 2019-01-10 10:28 | Day surgery (SDC) | payer BC ==
[~2019-01-10] VITALS: Ht 165.2 cm; Wt 84.0 kg
[2019-01-10] VITALS (13 sets, daily range): BP systolic 103–151; BP diastolic 55–74; PULSE 51–63; TEMP 98.5
[2019-01-10 11:16] LABS: HEMATOCRIT 38.1 % (37.0-47.0); HEMOGLOBIN 11.7 g/dl (12.5-16.0); MEAN CELL VOLUME 97 fl (80.0-100.0); MEAN CORPUSCULAR HEMOGLOBIN 30 pg (27.0-31.0); MEAN CORPUSCULAR HGB CONC 31 g/dl (33.0-37.0); MEAN PLATELET VOLUME 9.3 fl (7.4-10.4); PLATELET COUNT 240 K/mm3 (130-400); RED BLOOD COUNT 3.94 M/mm3 (4.10-5.30); REDCELL DISTRIBUTION WIDTH-CV 12.2 % (11.5-14.5)
[2019-01-10 11:20] LABS: PROTHROMBIN TIME 12.2 SECONDS (9.7-12.8)
[2019-01-10 11:21] LABS: CALCIUM 9.5 mg/dL (8.4-10.2); CREATININE, serum 0.84 (0.52-1.25); POTASSIUM 4.3 mmol/L (3.4-5.0)
[2019-01-10 11:23] LABS: PARTIAL THROMBOPLASTIN TIME 34.5 SECONDS (26.0-37.0)
[2019-01-10] MEDS ORDERED: ZYRTEC 10MG10 MG PO (11:51)
[2019-01-10] MEDS ORDERED: LASIX 20MG TABL20 MG PO (11:53)
[2019-01-10] MEDS ORDERED: TRELEGY ELLIPT1 EACH IH (11:54)
[2019-01-10] MEDS ORDERED: SYNTHROID0.088 MG/T PO (11:55)
[2019-01-10] MEDS ORDERED: MAG-OX 400400 MG/TAB PO (11:56)
[2019-01-10] MEDS ORDERED: K-DUR20 MEQ PO (11:59)
[2019-01-10] MEDS ORDERED: CALCIUM CARBON650 M2 PO (12:01)
[2019-01-10] MEDS ORDERED: COUMADIN 5MG5 MG/TAB PO (12:01)
[2019-01-10] MEDS ORDERED: LOVENOX 8080 MG/0.8 SQ (12:02)
--- NOTE | 2019-01-10 12:36 | NUR ---
SEE ELSIE FOR ALL MEDICATION ADMINISTRATION TIMES AND INTRA AND POST SEDATION ASSESSMENT
[2019-01-10] MEDS ORDERED: NORVASC 5MG5 MG/TAB PO (13:06)
--- NOTE | 2019-01-10 13:15 | NUR ---
Pt returned to EU 10 per bed s/p heart cath. Pt resting well, at bedside.
--- NOTE | 2019-01-10 13:18 | NUR ---
PATIENT RETURNED TO EXPRESS UNIT WITH TR BAND IN PLACE, 15ML OF AIR IN BAND. 2+ RADIAL PULSES, DENIES NUMBESS/TINGLING, SKIN WARM/DRY/PINK. HEMOSTATSIS MANTAINED. REPORT TO AMINATA MULLINS
--- NOTE | 2019-01-10 15:50 | NUR ---
Slight oozing noted at R radial cath site. 2ml air reinflated and site stabalized.
--- NOTE | 2019-01-10 17:15 | NUR ---
R radial band removed, cath site remains soft, C/D/I. Site covered with bandaid and gauze and wrapped with coban. Pt has ambulated, voided and cele PO intake s n/v. PIV removed with catheter intact.
--- NOTE | 2019-01-10 17:50 | NUR ---
Pt discharged per w/c by nurse with on home O2 at 3L per NC.
== END 2019-01-10 17:56 | disposition home or self-care (01) ==
LOC: COL.CAR 10:28
PROVIDERS: Internal Medicine Cardiovascular Disease
DX: I25.10 Atherosclerotic heart disease of native coronary artery without angina pectoris (principal); I10 Essential (primary) hypertension; J44.9 Chronic obstructive pulmonary disease, unspecified; I27.82 Chronic pulmonary embolism; Z99.81 Dependence on supplemental oxygen; Z79.01 Long term (current) use of anticoagulants; Z95.828 Presence of other vascular implants and grafts; Z79.899 Other long term (current) drug therapy; E89.0 Postprocedural hypothyroidism; D68.51 Activated protein C resistance
CPT/HCPCS: J1644; Q9967

== ENCOUNTER → 2019-03-15 | Outpatient (CLI) | payer BC ==
[~2019-03-15] MED LIST changes: +CALCIUM CARBON650 M2 PO; +K-DUR20 MEQ PO; +LASIX 20MG TABL20 MG PO; +LOVENOX 8080 MG/0.8 SQ; +NORVASC 5MG5 MG/TAB PO; +SYNTHROID0.088 MG/T PO; +ZYRTEC 10MG10 MG PO
[2019-03-15 12:02] LABS: ARTERIAL BLD GAS O2 SATURATION 91.9 % (92-100); ARTERIAL BLOOD GAS BASE EXCESS 9.3 (-2-2); ARTERIAL BLOOD GAS HCO3 37.8 meq/L (22-26); ARTERIAL BLOOD GAS pH 7.35 (7.35-7.45)
[2019-03-15 12:03] LABS: ARTERIAL BLOOD GAS PCO2 70.2 mmHg (35-45)
== END ==
LOC: COL.PUL 11:20
PROVIDERS: Internal Medicine Pulmonary Disease
DX: J96.12 Chronic respiratory failure with hypercapnia (principal)

== ENCOUNTER → 2020-05-11 | Outpatient (CLI) | payer MEDICARE ==
[~2020-05-11] MED LIST changes: -CALCIUM CARBON650 M2 PO; +CALCIUM/MAGNESI1 T13 PO; +CEFTIN 250250 MG/TAB PO; +CEFTIN500 MG PO; +DIAMOX 250MG250 MG PO; +K-DUR 10 MEQ T10 MEQ PO; +MELATIN 3 MG-11 TAB PO; +MONODOX100 PO; +NEURONTIN100 MG/CAP PO; +OMNICEF 300MG300 MG PO; +PREDNISONE 5MG5 MG PO; +VOLTAREN GEL 1%1 TU TP
[2020-05-11 11:38] LABS: ARTERIAL BLD GAS O2 SATURATION 94.8 % (92-100); ARTERIAL BLD GAS TCO2 CT 40.1; ARTERIAL BLOOD GAS BASE EXCESS 7.6 (-2-2); ARTERIAL BLOOD GAS HCO3 37.6 meq/L (22-26); ARTERIAL BLOOD GAS PO2 76.7 mmHg (80-100); ARTERIAL BLOOD GAS pH 7.28 (7.35-7.45)
[2020-05-11 11:39] LABS: ARTERIAL BLOOD GAS PCO2 82.2 mmHg (35-45)
== END ==
LOC: COL.PUL 10:39
PROVIDERS: Internal Medicine Pulmonary Disease
DX: J96.12 Chronic respiratory failure with hypercapnia (principal)

== ENCOUNTER 2020-07-02 14:00 | Inpatient (IN) | payer MEDICARE ==
[~2020-07-02] VITALS: Ht 162.6 cm; Wt 88.9 kg
[2020-07-02] VITALS (166 sets, daily range): BP systolic 123; BP diastolic 65; PULSE 59; TEMP 98.3; O2SAT 90–96
[~2020-07-02 14:00] MED LIST changes: -CEFTIN 250250 MG/TAB PO; -CEFTIN500 MG PO; -DIAMOX 250MG250 MG PO; -K-DUR 10 MEQ T10 MEQ PO; -MELATIN 3 MG-11 TAB PO; -MONODOX100 PO; -NEURONTIN100 MG/CAP PO; -OMNICEF 300MG300 MG PO; -PREDNISONE 5MG5 MG PO; -VOLTAREN GEL 1%1 TU TP
[2020-07-02] MEDS ORDERED: CEFTIN 250250 MG/TAB PO (14:43)
[2020-07-02] MEDS ORDERED: NEURONTIN100 MG/CAP PO (14:47)
[2020-07-02 14:49] LABS: ARTERIAL BLD GAS O2 SATURATION 99.3 % (92-100); ARTERIAL BLD GAS TCO2 CT 41.1; ARTERIAL BLOOD GAS HCO3 38.1 meq/L (22-26); ARTERIAL BLOOD GAS PCO2 96.9 mmHg (35-45); ARTERIAL BLOOD GAS PO2 170.7 mmHg (80-100); ARTERIAL BLOOD GAS pH 7.21 (7.35-7.45)
[2020-07-02] MEDS ORDERED: DIAMOX 250MG250 MG PO (14:49)
[2020-07-02 14:52] LABS: BASO % 0.2 % (0.0-2.0); EOS % 0.2 % (0-4.0); GRAN # 7.7 (1.4-6.5); GRAN % 84.8 % (42.2-75.2); HEMATOCRIT 37.4 % (37.0-47.0); HEMOGLOBIN 11.3 g/dl (12.5-16.0); LYMPH # 0.4 (1.2-3.4); LYMPH % 4.4 % (20.0-51.0); MEAN CELL VOLUME 103 fl (80.0-100.0); MEAN CORPUSCULAR HEMOGLOBIN 31 pg (27.0-31.0); MEAN CORPUSCULAR HGB CONC 30 g/dl (33.0-37.0); MEAN PLATELET VOLUME 9.8 fl (7.4-10.4); MONO # 0.9 (0.1-0.6); MONO % 9.7 % (1.7-9.3); PLATELET COUNT 192 K/mm3 (130-400); RED BLOOD COUNT 3.65 M/mm3 (4.10-5.30); REDCELL DISTRIBUTION WIDTH-CV 12.2 % (11.5-14.5)
[2020-07-02 15:01] LABS: ALBUMIN 4.1 gm/dL (3.5-5.0); BILIRUBIN,TOTAL 0.2 mg/dL (0.0-1.0); CREATININE, serum 0.8 (0.52-1.25); POTASSIUM 4.2 mmol/L (3.4-5.0); TOTAL PROTEIN 8.2 gm/dL (6.4-8.2)
[2020-07-02 15:12] LABS: TROPONIN-I 0.014 ng/mL (0.000-0.035)
[2020-07-02 15:15] LABS: C-REACTIVE PROTEIN 18.1 mg/dL (0.0-0.9)
[2020-07-02 15:50] LABS: COLLECTION METHOD CLEAN CATCH
[2020-07-02 16:18] LABS: MUCOUS Present /lpf; PH 5 (5-8); SQUAMOUS EPITHELIAL None Seen /hpf; URINE APPEARANCE Hazy; URINE BACTERIA None Seen /hpf; URINE BILIRUBIN Negative (NEGATIVE); URINE BLOOD 1+ (NEGATIVE); URINE COLOR Yellow; URINE GLUCOSE Negative (NEGATIVE); URINE KETONE Negative (NEGATIVE); URINE LEUKOCYTE ESTERASE Negative (NEGATIVE); URINE NITRATE Negative (NEGATIVE); URINE PROTEIN(semi-quant) 2+ (NEGATIVE); URINE RBC 0-2 /hpf; URINE UROBILINOGEN Negative (NEGATIVE)
[2020-07-02 16:43] LABS: INR 3.2 (0.8-3.0); PROTHROMBIN TIME 36.3 SECONDS (9.7-12.8)
--- NOTE | 2020-07-02 21:11 | NUR ---
Received report from AMINATA Mcduffie. All medications verified and all questions answered. Patient resting in bed on bipap with at bedside. VSS. Will resume care at this time.
[2020-07-03] VITALS (608 sets, daily range): BP systolic 119–141; BP diastolic 57–75; PULSE 53–78; TEMP 97.5–98.4; O2SAT 87–100
[2020-07-03 05:17] LABS: BASO % 0.2 % (0.0-2.0); GRAN # 5.2 (1.4-6.5); GRAN % 89.9 % (42.2-75.2); HEMOGLOBIN 10.6 g/dl (12.5-16.0); LYMPH # 0.4 (1.2-3.4); LYMPH % 7.5 % (20.0-51.0); MEAN CELL VOLUME 101 fl (80.0-100.0); MEAN CORPUSCULAR HEMOGLOBIN 31 pg (27.0-31.0); MEAN CORPUSCULAR HGB CONC 31 g/dl (33.0-37.0); MEAN PLATELET VOLUME 10.1 fl (7.4-10.4); MONO # 0.1 (0.1-0.6); MONO % 1.5 % (1.7-9.3); PLATELET COUNT 166 K/mm3 (130-400); REDCELL DISTRIBUTION WIDTH-CV 12.1 % (11.5-14.5)
[2020-07-03 05:21] LABS: HEMATOCRIT 34.3 % (37.0-47.0)
[2020-07-03 05:28] LABS: INR 3.7 (0.8-3.0)
[2020-07-03 05:34] LABS: CALCIUM 8.5 mg/dL (8.4-10.2); CREATININE, serum 0.67 (0.52-1.25); POTASSIUM 4.3 mmol/L (3.4-5.0)
[2020-07-03 08:51] LABS: ARTERIAL BLD GAS O2 SATURATION 64.4 % (92-100); ARTERIAL BLD GAS TCO2 CT 35.5; ARTERIAL BLOOD GAS BASE EXCESS 6.4 (-2-2); ARTERIAL BLOOD GAS HCO3 33.6 meq/L (22-26); ARTERIAL BLOOD GAS PCO2 61.5 mmHg (35-45); ARTERIAL BLOOD GAS pH 7.36 (7.35-7.45)
--- NOTE | 2020-07-03 09:00 | NUR ---
Assessment completed, alert/oriented, vital signs stable, denies pain or discomfort, reports feeling much better this morning, she tolerated Bi-pap well overnight repeat ABG is much improved, lungs CTA/ diminished, heart RRR/ distal pulses are palapble, has some BLE edema/ Home lasix dose given, patient has carpenter and it is patent with clear/ yellow urine output, she ate some breakfast and tolerated well, consulted and ordered for bipap on for 2 hr/ off 2hr untill 8pm and then wear continuously overnight, PICC line placement ordered, present and discussed plan of care, will continue to monitor
--- NOTE | 2020-07-03 09:18 | NUR ---
Plan is to return home with Rob as care support. SWmet with patient and in ICU room. Patient gave permission to speak with on her behalf by nodding head and verbalizing she understood. reports that they reside in [facility] [place]. shares that the patient has a triligy machine through [employer]. Using 3 liters on O2 during the day and 4 1/2 liters at night. reports that gingernet has a walker but does not use it. reports that she has been fully vaccinated. PCP is Dr. Rico Sign, and Dr. Ascencio/Pamela Vázquez. RX obtain through [facility] and [facility]. provides transportation. NO DPOA- Educated on ther process of filling out MDPOA and having a notory. No contact is Son Kanwal DTR in [place] , Alessandra is DTR are contact for the family. Will continue to follow care. [facility]. Family willing to obtain additional services.
--- NOTE | 2020-07-03 10:25 | NUR ---
I have placed patient back on her bi-pap at this time
--- NOTE | 2020-07-03 10:44 | NUR ---
First visit from the secretary of police. Patient was asleep. Vehicle Service Agent prayed for patient while standing outside their door.
--- NOTE | 2020-07-03 12:12 | NUR ---
patient taken off bi-pap and put on NC 4L. at this time so that she can eat her lunch
--- NOTE | 2020-07-03 14:01 | NUR ---
Patient had signed consent for PICC now refused PICC.
--- NOTE | 2020-07-03 15:13 | NUR ---
Patient continues to do well and show improvment, vital signs stable, alternating bi-pap and 4L. NC about every 2 hours, discussed plan of care with patient and her , they have decided to refuse PICC line placemen for the time being
--- NOTE | 2020-07-03 17:45 | NUR ---
Report received from Yg COATES. Introduced myself to Pt. Pt's breakfast ordered. Pt's VSS. Pt on NC awaiting dinner. Will continue to monitor.
--- NOTE | 2020-07-03 19:21 | NUR ---
Received report from AMINATA Vu. All medications verified and all questions answered. Patient resting in bed watching TV with at bedside. Patient finishing dinner and currently on 4L of O2 via NC. VSS. Will resume care at this time.
[2020-07-04] VITALS (217 sets, daily range): BP systolic 104–120; BP diastolic 50–60; PULSE 53–73; TEMP 97.7–98.8; O2SAT 91–100
[2020-07-04 05:48] LABS: ARTERIAL BLD GAS O2 SATURATION 96.7 % (92-100); ARTERIAL BLD GAS TCO2 CT 37.9; ARTERIAL BLOOD GAS BASE EXCESS 10.1 (-2-2); ARTERIAL BLOOD GAS HCO3 36.1 meq/L (22-26); ARTERIAL BLOOD GAS PCO2 55.7 mmHg (35-45); ARTERIAL BLOOD GAS pH 7.43 (7.35-7.45)
[2020-07-04 06:12] LABS: HEMOGLOBIN 11.3 g/dl (12.5-16.0); MEAN CELL VOLUME 97 fl (80.0-100.0); MEAN CORPUSCULAR HEMOGLOBIN 31 pg (27.0-31.0); MEAN CORPUSCULAR HGB CONC 32 g/dl (33.0-37.0); PLATELET COUNT 208 K/mm3 (130-400); RED BLOOD COUNT 3.66 M/mm3 (4.10-5.30); REDCELL DISTRIBUTION WIDTH-CV 12.1 % (11.5-14.5)
[2020-07-04 06:14] LABS: HEMATOCRIT 35.5 % (37.0-47.0)
[2020-07-04 06:23] LABS: CALCIUM 8.7 mg/dL (8.4-10.2); CREATININE, serum 0.65 (0.52-1.25); POTASSIUM 4.2 mmol/L (3.4-5.0)
[2020-07-04 06:49] LABS: BAND 6 % (0-10); HYPOCHROMIA 2+; LYMPHOCYTE 6 % (20.0-51.0); NEUTROPHILS 85 % (42.0-75.2); NUCLEATED RED BLOOD CELL 1 (0-6); PLATELET ESTIMATE NORMAL (NORMAL)
[2020-07-04 08:30] LABS: INR 2.3 (0.8-3.0); PROTHROMBIN TIME 25.9 SECONDS (9.7-12.8)
--- NOTE | 2020-07-04 10:44 | NUR ---
Warfarin Follow-up Pharmacy Note Current regimen: Holding due to supratherapeutic INR LABS: INR 2.3 <- 3.7 Changes in therapy: With drop in INR, will give Warfarin 3 mg po x1 this morning, then Warfarin 3.5 mg po x1 tonight for a total of 6.5 mg today. Patient states she was therapeutic on home dose of Warfarin 6.5 mg po qHS prior to admission. Pharmacy will continue to monitor daily INR levels and adjust dose accoringly.
--- NOTE | 2020-07-04 10:45 | NUR ---
Patient arrived to Medical floor room 317 at this time, she is alert/oriented, assisted her from the chair to her bed/ she is ambulatory, she is currently on 4L. nasal cannula/ RT is bringing up her C-Pap, no resp.difficulty noted, she denies other need at this time, will continue to monitor
--- NOTE | 2020-07-04 11:00 | NUR ---
PT TRANSFERED TO ROOM 317 AT THIS TIME. REPORT GIVEN PRIOR TO TRANSFER AND CARE RELINQUISHED TO RAHEEM AT THIS TIME.
--- NOTE | 2020-07-04 11:32 | NUR ---
Guide contacted Hospitalist to request PT/OT orders. Patient to transfer to the medical floor today. Discharge Plan: Home, pending PT/OT recommendations.
--- NOTE | 2020-07-04 19:10 | NUR ---
Received report from Yg. Patient awake in bed. at the bedside. Azithromycin ongoing on her right AC. She complains of burning sensation on her IV site. Stopped IV for now. Tried flushing her IV and leaking was noted. Fixed her IV and changed the dressing. Re-started antibiotic and stayed for few minutes. Patient denies burning sensation and states her IV is much better now.
--- NOTE | 2020-07-04 20:05 | NUR ---
Zoey of RT in the room to place her bipap. Patient requested to have her carpenter catheter removed in the morning.
[2020-07-05 00:24] VITALS: BP 113/54; PULSE 61; TEMP 98.7
[2020-07-05 04:13] VITALS: BP 121/58; PULSE 60; TEMP 97.8
[2020-07-05 05:26] LABS: ARTERIAL BLD GAS O2 SATURATION 96.8 % (92-100); ARTERIAL BLD GAS TCO2 CT 43.2; ARTERIAL BLOOD GAS BASE EXCESS 13.7 (-2-2); ARTERIAL BLOOD GAS HCO3 41.2 meq/L (22-26); ARTERIAL BLOOD GAS PO2 84.8 mmHg (80-100); ARTERIAL BLOOD GAS pH 7.41 (7.35-7.45)
[2020-07-05 05:29] LABS: ARTERIAL BLOOD GAS PCO2 66.9 mmHg (35-45)
[2020-07-05 05:59] LABS: BASO % 0.1 % (0.0-2.0); GRAN # 6.7 (1.4-6.5); GRAN % 80.7 % (42.2-75.2); HEMOGLOBIN 11.3 g/dl (12.5-16.0); LYMPH # 0.8 (1.2-3.4); LYMPH % 9.4 % (20.0-51.0); MEAN CELL VOLUME 100 fl (80.0-100.0); MEAN CORPUSCULAR HEMOGLOBIN 31 pg (27.0-31.0); MEAN CORPUSCULAR HGB CONC 31 g/dl (33.0-37.0); MEAN PLATELET VOLUME 9.8 fl (7.4-10.4); MONO # 0.8 (0.1-0.6); PLATELET COUNT 218 K/mm3 (130-400); RED BLOOD COUNT 3.64 M/mm3 (4.10-5.30); REDCELL DISTRIBUTION WIDTH-CV 12.4 % (11.5-14.5)
[2020-07-05 06:02] LABS: HEMATOCRIT 36.3 % (37.0-47.0)
--- NOTE | 2020-07-05 06:07 | NUR ---
Relayed ABG PCO2 to Christine SOUZA via phone call. Patient had been wearing her bipap overnight. She was switched back now to O2 at 4lpm via ID. Avila catheter remover at 0545H. Instructed patient to try voiding at least before noontime or earlier much better.
[2020-07-05 06:08] LABS: PROTHROMBIN TIME 22.7 SECONDS (9.7-12.8)
[2020-07-05 06:16] LABS: ALBUMIN 3.6 gm/dL (3.5-5.0); CALCIUM 8.4 mg/dL (8.4-10.2); CREATININE, serum 0.72 (0.52-1.25); PHOSPHOROUS 2.7 mg/dL (2.5-4.5)
[2020-07-05 07:51] VITALS: BP 147/63; PULSE 80; TEMP 97.1
[2020-07-05] MEDS ORDERED: CEFTIN500 MG PO (09:20)
[2020-07-05] MEDS ORDERED: COUMADIN 6MG6 MG/TAB PO (09:22)
[2020-07-05] MEDS ORDERED: K-DUR20 MEQ PO (09:23)
[2020-07-05] MEDS ORDERED: PREDNISONE 5MG5 MG PO (09:28)
--- NOTE | 2020-07-05 09:39 | NUR ---
Power Electronics Engineer attended clinical rounds with the team. The patient's Rob present. The patient it to tentatively discharge home today, 07/05 with her and OP PT/OT services at [facility] in [place]. After rounds, JEMIMA met with the patient and Rob to discuss PTs recommendation of OP PT. The patient has used [facility] in [place] in the past and would like to use them once again. JEMIMA contacted [facility] and they are not in-network with Medicare [employer]. The second choice is [facility] in [place]. JEMIMA contacted Samantha with [facility]. She reports they are in-network with [employer]. Referral and discharge orders sent. There are no additional needs at this time. *Discharge disposition: Home with spouse and OP therapies at [facility]
--- NOTE | 2020-07-05 10:25 | NUR ---
PT PLEASANT, AOX4, QUIET, REPORTS SOB ON EXERTION BUT APPEARS TO BE HAVING LABORED BREATHING AT REST ON 4L NC. PT ASSESSMENT PERFORMED, MEDICATIONS GIVEN, CALL LIGHT WITHIN REACH, AT BEDSIDE, NO OTHER NEEDS.
--- NOTE | 2020-07-05 12:08 | NUR ---
IV DISCONTINUED, DISCHARGE EDUCATION PROVIDED, PT ESCORTED OUT VIA WHEELCHAIR, NO OTHER NEEDS
== END 2020-07-05 12:00 | disposition home or self-care (01) | DRG 189 ==
LOC: COL.ER 14:00 → ICU 15:08 → MEDICAL 07-04 11:03
PROVIDERS: Emergency Medicine; Internal Medicine Pulmonary Disease; Physician Assistant; Student in an Organized Health Care Education/Training Program; ADMIT Emergency Medicine
PROC: 5A09457 Assistance with Respiratory Ventilation, 24-96 Consecutive Hours, Continuous Positive Airway Pressure (ICD-10-PCS; principal; 2020-07-05)
DX: J96.21 Acute and chronic respiratory failure with hypoxia (principal); J44.1 Chronic obstructive pulmonary disease with (acute) exacerbation; D68.51 Activated protein C resistance; E87.3 Alkalosis; J96.22 Acute and chronic respiratory failure with hypercapnia; K21.9 Gastro-esophageal reflux disease without esophagitis; F32.9 Major depressive disorder, single episode, unspecified; I10 Essential (primary) hypertension; E03.9 Hypothyroidism, unspecified; Z20.822 Contact with and (suspected) exposure to COVID-19; D64.9 Anemia, unspecified; G62.9 Polyneuropathy, unspecified; I27.20 Pulmonary hypertension, unspecified; Z90.710 Acquired absence of both cervix and uterus; Z87.891 Personal history of nicotine dependence; Z86.711 Personal history of pulmonary embolism
CPT/HCPCS: 99223-AI; 99232-AI; 99239; J0456; J0696; J2930; J7050; J7512

== ENCOUNTER 2020-08-03 09:01 | Inpatient (IN) | payer MEDICARE ==
[~2020-08-03] VITALS: Ht 162.6 cm; Wt 88.6 kg
[~2020-08-03 09:01] MED LIST changes: -K-DUR 10 MEQ T10 MEQ PO; -MELATIN 3 MG-11 TAB PO; -MONODOX100 PO; -OMNICEF 300MG300 MG PO; -VOLTAREN GEL 1%1 TU TP
[2020-08-03 09:41] LABS: BASO % 0.3 % (0.0-2.0); EOS # 0.1 (0.0-0.7); EOS % 3.4 % (0-4.0); GRAN # 2.6 (1.4-6.5); GRAN % 66.4 % (42.2-75.2); HEMATOCRIT 38.2 % (37.0-47.0); HEMOGLOBIN 11.7 g/dl (12.5-16.0); LYMPH # 0.7 (1.2-3.4); MEAN CELL VOLUME 102 fl (80.0-100.0); MEAN CORPUSCULAR HEMOGLOBIN 31 pg (27.0-31.0); MEAN CORPUSCULAR HGB CONC 31 g/dl (33.0-37.0); MEAN PLATELET VOLUME 9.1 fl (7.4-10.4); MONO # 0.5 (0.1-0.6); MONO % 11.9 % (1.7-9.3); PLATELET COUNT 208 K/mm3 (130-400); RED BLOOD COUNT 3.75 M/mm3 (4.10-5.30)
[2020-08-03 09:52] LABS: ALBUMIN 4.1 gm/dL (3.5-5.0); BILIRUBIN,TOTAL 0.3 mg/dL (0.0-1.0); CREATININE, serum 1.02 (0.52-1.25); POTASSIUM 3.8 mmol/L (3.4-5.0); TOTAL PROTEIN 7.6 gm/dL (6.4-8.2)
[2020-08-03 15:22] LABS: ARTERIAL BLD GAS O2 SATURATION 98.7 % (92-100); ARTERIAL BLD GAS TCO2 CT 39.9; ARTERIAL BLOOD GAS HCO3 37.6 meq/L (22-26); ARTERIAL BLOOD GAS pH 7.32 (7.35-7.45)
[2020-08-03 15:23] LABS: ARTERIAL BLOOD GAS PCO2 74.3 mmHg (35-45); ARTERIAL BLOOD GAS PO2 135.8 mmHg (80-100)
[2020-08-03 15:36] VITALS: BP 112/70; PULSE 57; TEMP 98.7
--- NOTE | 2020-08-03 15:51 | NUR ---
Pt arrived to medical unit room 309 around 1500. Oriented pt and to room. Admission assessment completed. Med list obtained from pt, unable to update med rec at this time as it is locked by another user. Meds given as ordered and pt set up on Bipap. Denies needs. Continuing to monitor.
[2020-08-03] MEDS ORDERED: NORVASC 5MG5 MG/TAB PO (15:56)
[2020-08-03] MEDS ORDERED: CEFTIN 250250 MG/TAB PO (15:58)
[2020-08-03] MEDS ORDERED: K-DUR20 MEQ PO (16:03)
--- NOTE | 2020-08-03 16:04 | NUR ---
Med rec updated.
[2020-08-03 19:47] VITALS: BP 111/59; PULSE 67; TEMP 97.2
--- NOTE | 2020-08-03 22:38 | NUR ---
Pt is doing ok on the BIPAP. Vss,Will continue to monitor.
[2020-08-04] VITALS: BP 104/54; PULSE 60; TEMP 97.3
[2020-08-04 04:10] VITALS: BP 112/43; PULSE 59; TEMP 96.6
[2020-08-04 05:49] LABS: ARTERIAL BLD GAS O2 SATURATION 95.4 % (92-100); ARTERIAL BLD GAS TCO2 CT 35.6; ARTERIAL BLOOD GAS BASE EXCESS 6.9 (-2-2); ARTERIAL BLOOD GAS HCO3 33.8 meq/L (22-26); ARTERIAL BLOOD GAS PCO2 58.8 mmHg (35-45); ARTERIAL BLOOD GAS pH 7.38 (7.35-7.45)
[2020-08-04 07:27] LABS: HEMATOCRIT 37.9 % (37.0-47.0); HEMOGLOBIN 12.1 g/dl (12.5-16.0); MEAN CORPUSCULAR HEMOGLOBIN 31 pg (27.0-31.0); MEAN CORPUSCULAR HGB CONC 32 g/dl (33.0-37.0); MEAN PLATELET VOLUME 9.4 fl (7.4-10.4); PLATELET COUNT 214 K/mm3 (130-400); RED BLOOD COUNT 3.92 M/mm3 (4.10-5.30); REDCELL DISTRIBUTION WIDTH-CV 12.8 % (11.5-14.5)
[2020-08-04 07:33] LABS: MEAN CELL VOLUME 97 fl (80.0-100.0)
[2020-08-04 07:40] LABS: CALCIUM 9.5 mg/dL (8.4-10.2); CREATININE, serum 0.8 (0.52-1.25); POTASSIUM 4.2 mmol/L (3.4-5.0)
[2020-08-04 07:44] LABS: INR 3.7 (0.8-3.0); PROTHROMBIN TIME 41.5 SECONDS (9.7-12.8)
--- NOTE | 2020-08-04 08:00 | NUR ---
PT doing well at this time. Reports that she would like to stay on her bipap until her arrives and then she will order breakfast. No pain complaints or needs verbalized at this time.
[2020-08-04 08:11] VITALS: BP 133/54; PULSE 75; TEMP 97.8
--- NOTE | 2020-08-04 10:00 | NUR ---
Pt on o2 per nasal cannula. O2 at 91% at this time. She has had and tolerated breakfast. Will put bipap back on. Pt hoping to go home today
[2020-08-04] MEDS ORDERED: MONODOX100 PO (10:10)
[2020-08-04] MEDS ORDERED: PREDNISONE20 MG PO (10:10)
[2020-08-04] MEDS ORDERED: COUMADIN 5MG5 MG/TAB PO (10:19)
--- NOTE | 2020-08-04 11:56 | NUR ---
Pt received orders to go home. present in the room. Reviewed discharge instructions with pt and her to include making the follow up appointments on Thursday and prescriptions. Prescriptions called in to [facility] per their request. INT removed from right AC, PCT assisting pt with getting dressed
[2020-08-04 12:00] VITALS: BP 131/57; PULSE 77; TEMP 98
--- NOTE | 2020-08-04 12:59 | NUR ---
Pt escorted out at this time
--- NOTE | 2020-08-04 13:53 | NUR ---
Plan to go home. Assessment: SW met with patient about care. Patient reports that she resides in [facility] with her Rob ( [phone]) hs two children Alessandra ([phone]) Ayde (Son) [phone]. Client reports that she uses [facility].Patient reports that her PCP is Dr. Juanita Hdz and works with other specialist Dr. Rojas, Dr Lee, and Dr. Ascencio. Paitnet indicated she does not use any devices for mobility. Patient has opted out of palliative care. Declined any HHS, Patient slotted to DC. Action: Educated on support services. NF
== END 2020-08-04 12:59 | disposition home or self-care (01) | DRG 189 ==
LOC: COL.ER 09:01 → MEDICAL 10:44
PROVIDERS: Family Medicine; Physician Assistant; ADMIT Internal Medicine
DX: J96.21 Acute and chronic respiratory failure with hypoxia (principal); E87.3 Alkalosis; D68.51 Activated protein C resistance; J96.22 Acute and chronic respiratory failure with hypercapnia; D64.9 Anemia, unspecified; K21.9 Gastro-esophageal reflux disease without esophagitis; F32.9 Major depressive disorder, single episode, unspecified; E89.0 Postprocedural hypothyroidism; I10 Essential (primary) hypertension; J44.9 Chronic obstructive pulmonary disease, unspecified; Z90.710 Acquired absence of both cervix and uterus; Z87.891 Personal history of nicotine dependence
CPT/HCPCS: 99223-AI; 99239; J2920

== ENCOUNTER → 2020-08-03 | Outpatient (CLI) | payer MEDICARE ==
[~2020-08-03] MED LIST changes: +CEFTIN 250250 MG/TAB PO; +CEFTIN500 MG PO; +DIAMOX 250MG250 MG PO; +K-DUR 10 MEQ T10 MEQ PO; +MELATIN 3 MG-11 TAB PO; +MONODOX100 PO; +NEURONTIN100 MG/CAP PO; +OMNICEF 300MG300 MG PO; +PREDNISONE 5MG5 MG PO; +VOLTAREN GEL 1%1 TU TP
[2020-08-03 08:10] LABS: ARTERIAL BLD GAS TCO2 CT 43.1; ARTERIAL BLOOD GAS BASE EXCESS 10.9 (-2-2); ARTERIAL BLOOD GAS HCO3 40.5 meq/L (22-26); ARTERIAL BLOOD GAS PO2 85.3 mmHg (80-100)
[2020-08-03 08:17] LABS: ARTERIAL BLOOD GAS PCO2 83.5 mmHg (35-45)
== END ==
LOC: COL.PUL 07:44
PROVIDERS: Hospitalist
DX: J96.02 Acute respiratory failure with hypercapnia (principal)

== ENCOUNTER → 2020-08-17 | Outpatient (CLI) | payer MEDICARE ==
[~2020-08-17] MED LIST changes: +K-DUR 10 MEQ T10 MEQ PO; +MELATIN 3 MG-11 TAB PO; +MONODOX100 PO; +OMNICEF 300MG300 MG PO; +VOLTAREN GEL 1%1 TU TP
[2020-08-17 11:32] LABS: ARTERIAL BLD GAS O2 SATURATION 95.9 % (92-100); ARTERIAL BLD GAS TCO2 CT 42.8; ARTERIAL BLOOD GAS BASE EXCESS 11.7 (-2-2); ARTERIAL BLOOD GAS HCO3 40.5 meq/L (22-26); ARTERIAL BLOOD GAS pH 7.35 (7.35-7.45)
[2020-08-17 11:33] LABS: ARTERIAL BLOOD GAS PCO2 75.2 mmHg (35-45)
== END ==
LOC: COL.PUL 11:06
PROVIDERS: Internal Medicine Pulmonary Disease
DX: J96.02 Acute respiratory failure with hypercapnia (principal)

== ENCOUNTER 2020-09-28 18:39 | Inpatient (IN) | payer MEDICARE ==
[~2020-09-28] VITALS: Ht 165.1 cm; Wt 88.6 kg
[~2020-09-28 18:39] MED LIST changes: -K-DUR 10 MEQ T10 MEQ PO; -MELATIN 3 MG-11 TAB PO; -OMNICEF 300MG300 MG PO; -VOLTAREN GEL 1%1 TU TP
[2020-09-28 19:39] LABS: BASO % 0.7 % (0.0-2.0); EOS # 0.1 (0.0-0.7); EOS % 3.1 % (0-4.0); GRAN # 2.7 (1.4-6.5); GRAN % 60.5 % (42.2-75.2); HEMATOCRIT 42.1 % (37.0-47.0); HEMOGLOBIN 12.7 g/dl (12.5-16.0); LYMPH # 0.9 (1.2-3.4); LYMPH % 20.7 % (20.0-51.0); MEAN CELL VOLUME 102 fl (80.0-100.0); MEAN CORPUSCULAR HEMOGLOBIN 31 pg (27.0-31.0); MEAN CORPUSCULAR HGB CONC 30 g/dl (33.0-37.0); MEAN PLATELET VOLUME 9.6 fl (7.4-10.4); MONO # 0.7 (0.1-0.6); MONO % 14.6 % (1.7-9.3); PLATELET COUNT 182 K/mm3 (130-400); RED BLOOD COUNT 4.12 M/mm3 (4.10-5.30); REDCELL DISTRIBUTION WIDTH-CV 12.5 % (11.5-14.5)
[2020-09-28 19:47] LABS: INR 2.1 (0.8-3.0); PROTHROMBIN TIME 23.6 SECONDS (9.7-12.8)
[2020-09-28 19:48] LABS: ALANINE AMINOTRANSFERASE 11 U/L (4-34); ALBUMIN 4.2 gm/dL (3.5-5.0); ALKALINE PHOSPHATASE 65 U/L (50-136); AST,SGOT 31 U/L (15-37); BILIRUBIN,TOTAL 0.2 mg/dL (0.0-1.0); BLOOD UREA NITROGEN 18 mg/dL (7-17); CALCIUM 9.3 mg/dL (8.4-10.2); CHLORIDE 94 mmol/L (98-107); GLUCOSE 115 mg/dL (74-106); POTASSIUM 4.2 mmol/L (3.4-5.0); SODIUM 140 mmol/L (137-145); TOTAL PROTEIN 7.4 gm/dL (6.4-8.2)
[2020-09-28 19:50] LABS: PARTIAL THROMBOPLASTIN TIME 45.3 SECONDS (26.0-37.0)
[2020-09-28 20:01] LABS: ARTERIAL BLD GAS O2 SATURATION 95.7 % (92-100); ARTERIAL BLD GAS TCO2 CT 47.4; ARTERIAL BLOOD GAS BASE EXCESS 14.6 (-2-2); ARTERIAL BLOOD GAS HCO3 44.7 meq/L (22-26); ARTERIAL BLOOD GAS PO2 83.5 mmHg (80-100); ARTERIAL BLOOD GAS pH 7.32 (7.35-7.45)
[2020-09-28 20:14] LABS: TROPONIN-I < 0.012 ng/mL (0.000-0.035)
[2020-09-28 20:36] LABS: ANION GAP 6 mmol/L (7-16); CARBON DIOXIDE 40 mmol/L (22-30)
[2020-09-28 22:01] LABS: ARTERIAL BLOOD GAS PCO2 81.1 mmHg (35-45); ARTERIAL BLOOD GAS pH 7.34 (7.35-7.45)
[2020-09-28 22:02] LABS: ARTERIAL BLD GAS O2 SATURATION 91.5 % (92-100); ARTERIAL BLOOD GAS BASE EXCESS 13.9 (-2-2); ARTERIAL BLOOD GAS HCO3 43.3 meq/L (22-26); ARTERIAL BLOOD GAS PO2 62.8 mmHg (80-100)
[2020-09-29] MEDS ORDERED: MELATIN 3 MG-11 TAB PO (00:59)
[2020-09-29] MEDS ORDERED: VOLTAREN GEL 1%1 TU TP (00:59)
[2020-09-29] MEDS ORDERED: COUMADIN 1MG1 MG/TAB PO (01:00)
[2020-09-29 01:15] LABS: ARTERIAL BLOOD GAS PCO2 88.2 mmHg (35-45)
[2020-09-29 02:00] VITALS: BP 112/44; PULSE 61; TEMP 97.4
[2020-09-29 05:06] LABS: ARTERIAL BLD GAS O2 SATURATION 93.9 % (92-100); ARTERIAL BLOOD GAS BASE EXCESS 12.7 (-2-2); ARTERIAL BLOOD GAS HCO3 42.2 meq/L (22-26); ARTERIAL BLOOD GAS PCO2 81.1 mmHg (35-45); ARTERIAL BLOOD GAS pH 7.33 (7.35-7.45)
--- NOTE | 2020-09-29 06:52 | NUR ---
Patient has been calm and controled with the bipap at 30%. She is alert and oriented and do not complais of pain, nausea or vomiting. No further needs at this time.
[2020-09-29 06:58] LABS: BASO % 0.2 % (0.0-2.0); GRAN # 3.9 (1.4-6.5); GRAN % 83.3 % (42.2-75.2); HEMOGLOBIN 12.9 g/dl (12.5-16.0); LYMPH # 0.7 (1.2-3.4); LYMPH % 14.6 % (20.0-51.0); MEAN CELL VOLUME 101 fl (80.0-100.0); MEAN CORPUSCULAR HEMOGLOBIN 31 pg (27.0-31.0); MEAN CORPUSCULAR HGB CONC 31 g/dl (33.0-37.0); MEAN PLATELET VOLUME 9.7 fl (7.4-10.4); MONO # 0.1 (0.1-0.6); MONO % 1.3 % (1.7-9.3); PLATELET COUNT 189 K/mm3 (130-400); RED BLOOD COUNT 4.18 M/mm3 (4.10-5.30); REDCELL DISTRIBUTION WIDTH-CV 12.3 % (11.5-14.5)
[2020-09-29 07:02] LABS: ARTERIAL BLD GAS O2 SATURATION 92.7 % (92-100); ARTERIAL BLD GAS TCO2 CT 40.7; ARTERIAL BLOOD GAS BASE EXCESS 10.2 (-2-2); ARTERIAL BLOOD GAS HCO3 38.6 meq/L (22-26); ARTERIAL BLOOD GAS PO2 66.9 mmHg (80-100); ARTERIAL BLOOD GAS pH 7.36 (7.35-7.45)
[2020-09-29 07:14] LABS: CALCIUM 9.3 mg/dL (8.4-10.2); CREATININE, serum 0.79 (0.52-1.25); POTASSIUM 4.4 mmol/L (3.4-5.0)
[2020-09-29 07:45] VITALS: BP 112/57; PULSE 62; TEMP 98.4
--- NOTE | 2020-09-29 11:09 | NUR ---
SW met with patient to complete intake. Patient states that she lives in [place] with her Rob [phone] who was present during intake. Patient provides what she does utilize a walker and recieves assistance from her with showers. Patient states that she does not utilize HH services. Patient provides that her PCP is Dr. Juanita Rao, pharmacy is [facility] in [place], and states that she is able to afford her medications. Patient profies that she does not have anyone appoint as her DPOA-HC. SW asked patient if she would like to appoint anyone. Patient stated yes document was presented, reviewed, completed and signed by patient. Patient appointed spouse as DPOA-HC and alt DPOA-HC Alessandra Waddell [phone]. Document witnessed by nurse, copies made for patient, and original placed in chart. Patient states her plan is to return to her home [place], and has no concerns or questions with doing so. SW will continue to follow. DC plan: Home with spouse
[2020-09-29 11:51] VITALS: BP 124/61; PULSE 75; TEMP 97.5
--- NOTE | 2020-09-29 12:11 | NUR ---
Tinner Helper prayed and offered support with patient while spouse was in room.
--- NOTE | 2020-09-29 15:06 | NUR ---
Per physician palliative consult needed to discuss goals of care due to reoccurant issue regarding health. SW will continue to follow.
[2020-09-29 16:00] VITALS: BP 117/53; PULSE 67; TEMP 97.4
--- NOTE | 2020-09-29 17:57 | NUR ---
PT RECEIVED RESTING IN BED. NO S/S OF DISTRESS NOTICED. PT HAS BIPAP ON. PT DENIES HAVING PAIN. PT ATE HER MEALS. DIRECTOR OF ALUMNI RELATIONS AND HOSPITALIST VISITED PT. PT INFORMED THAT SHE CAN TAKE THE BIPAP OFF EVERY 2 HOURS DURING THE DAY BUT TO WAIT AN HOUR BEFORE PUTTING IT ON AFTER EATING. PT V/S STABLE. CALL-LIGHT IN REACH. BED IN LOW POSITION. WILL CONTINUE TO MONITOR.
[2020-09-29 19:37] VITALS: BP 120/49; PULSE 72; TEMP 98.5
--- NOTE | 2020-09-29 21:00 | NUR ---
Initial shift assessment done- was on 3.5L/nc while eating and visiting with earlier,, now on BiPAP-- Tele on, does not want any snacks tonight--ready to get some sleep,, call light in reach.
[2020-09-29 23:31] VITALS: BP 115/53; PULSE 63; TEMP 97.6
[2020-09-30 04:01] VITALS: BP 115/50; PULSE 61; TEMP 96.5
--- NOTE | 2020-09-30 05:18 | NUR ---
Quiet night- Has been on Bipap all night, o2 sats 95% at this time, Tele on. Did have headache earlier in shift-- Called [facility] CUETO and got an order for tylenol-- states was effective. VSS
[2020-09-30 07:22] LABS: HEMATOCRIT 37.1 % (37.0-47.0); HEMOGLOBIN 11.6 g/dl (12.5-16.0); MEAN CELL VOLUME 101 fl (80.0-100.0); MEAN CORPUSCULAR HEMOGLOBIN 32 pg (27.0-31.0); MEAN CORPUSCULAR HGB CONC 31 g/dl (33.0-37.0); MEAN PLATELET VOLUME 10.2 fl (7.4-10.4); PLATELET COUNT 183 K/mm3 (130-400); RED BLOOD COUNT 3.67 M/mm3 (4.10-5.30); REDCELL DISTRIBUTION WIDTH-CV 12.6 % (11.5-14.5)
[2020-09-30 07:29] LABS: CALCIUM 8.7 mg/dL (8.4-10.2); CREATININE, serum 0.71 (0.52-1.25); POTASSIUM 4.3 mmol/L (3.4-5.0)
[2020-09-30 07:41] LABS: ARTERIAL BLD GAS O2 SATURATION 93.7 % (92-100); ARTERIAL BLOOD GAS BASE EXCESS 10.4 (-2-2); ARTERIAL BLOOD GAS HCO3 38.8 meq/L (22-26); ARTERIAL BLOOD GAS PCO2 70.9 mmHg (35-45); ARTERIAL BLOOD GAS PO2 69.6 mmHg (80-100); ARTERIAL BLOOD GAS pH 7.36 (7.35-7.45)
[2020-09-30 08:00] VITALS: BP 136/78; PULSE 86; TEMP 97.9
[2020-09-30 08:10] LABS: BAND 14 % (0-10); LYMPHOCYTE 5 % (20.0-51.0); NEUTROPHILS 79 % (42.0-75.2); PLATELET ESTIMATE NORMAL (NORMAL)
[2020-09-30 12:00] VITALS: BP 127/58; PULSE 80; TEMP 97.9
[2020-09-30 12:42] LABS: INR 2.5 (0.8-3.0)
[2020-09-30 16:00] VITALS: BP 130/58; PULSE 76; TEMP 97.8
--- NOTE | 2020-09-30 18:00 | NUR ---
PT RECEIVED RESTING IN BED ON THE BIPAP. NO S/S OF DISTRESS NOTICED. PT AWAKE AND ALERT. PT DENIES HAVING PAIN. V/S STABLE. MEDICATIONS ADMINISTERED ORDERED. PT ROTATED WEARING THE BIPAP AND NC AT 2.5L EVERY TWO HOURS THROUGHOUT THE DAY. SPOUSE AT THE BEDSIDE. DR. FRANCIS AND DR CARROLL VISITED PT AT THE BEDSIDE. PT ATE HER MEALS. COMFORT MEASURES IN PLACE . CALL-LIGHT IN REACH. BED IN LOW POSITION. WILL CONTINUE TO MONITOR.
--- NOTE | 2020-09-30 18:45 | NUR ---
BEDSIDE REPORT GIVEN TO NURSE MAYS.
[2020-09-30 20:30] VITALS: BP 120/58; PULSE 72; TEMP 97.5
--- NOTE | 2020-09-30 21:07 | NUR ---
Initial shift assessment done- denies pain- states tylenol was effective for headache-- on Bipap sats 92-93%-- no requests at this time ,VSS
[2020-10-01 00:06] VITALS: BP 108/53; PULSE 58; TEMP 97.5
[2020-10-01 04:08] VITALS: BP 110/51; PULSE 65; TEMP 97.4
[2020-10-01 05:00] LABS: ARTERIAL BLD GAS O2 SATURATION 94.4 % (92-100); ARTERIAL BLD GAS TCO2 CT 41.8; ARTERIAL BLOOD GAS BASE EXCESS 11.5 (-2-2); ARTERIAL BLOOD GAS HCO3 39.7 meq/L (22-26); ARTERIAL BLOOD GAS PO2 73.2 mmHg (80-100); ARTERIAL BLOOD GAS pH 7.37 (7.35-7.45)
[2020-10-01 05:01] LABS: ARTERIAL BLOOD GAS PCO2 69.7 mmHg (35-45)
--- NOTE | 2020-10-01 06:20 | NUR ---
Did rest fairly well most of the night- VSS, o2 sats 92-93% on the Bipap,, now back to 02 at 2.5L/nc per pts request.
[2020-10-01 06:53] LABS: HEMATOCRIT 39.2 % (37.0-47.0); HEMOGLOBIN 11.8 g/dl (12.5-16.0); MEAN CELL VOLUME 103 fl (80.0-100.0); MEAN CORPUSCULAR HEMOGLOBIN 31 pg (27.0-31.0); MEAN CORPUSCULAR HGB CONC 30 g/dl (33.0-37.0); MEAN PLATELET VOLUME 10.2 fl (7.4-10.4); PLATELET COUNT 175 K/mm3 (130-400); RED BLOOD COUNT 3.81 M/mm3 (4.10-5.30)
[2020-10-01 06:59] LABS: CALCIUM 8.8 mg/dL (8.4-10.2); CREATININE, serum 0.78 (0.52-1.25); POTASSIUM 4.5 mmol/L (3.4-5.0)
[2020-10-01 07:43] LABS: BAND 8 % (0-10); LYMPHOCYTE 5 % (20.0-51.0); NEUTROPHILS 86 % (42.0-75.2); PLATELET ESTIMATE NORMAL (NORMAL)
[2020-10-01 08:00] VITALS: BP 118/48; PULSE 65; TEMP 98.2
--- NOTE | 2020-10-01 10:07 | NUR ---
I met with patient and her this morning after they saw Dr Rao. Her "numbers are getting better slowly" they report and they expect to be here until Thursday. is her primary plate glass polisher, they do not use home health services, and it is their goal to keep Leslie in the home. Her ability to leave the house is very limited and when she does, she must usually use a wheelchair. Their [facility] has been adjusted several times to try to meet her needs and now reports that Dr Ascencio is recommending a [id number] to help with her breathing. They are very clear that they are not ready to stop treatment and their plan is to live as long as she can with whatever support they need. They do realize her health situation is very life-limiting and they are making adjustments to help keep her quality of life as high as possible.
[2020-10-01 12:00] VITALS: BP 126/53; PULSE 70; TEMP 97.9
[2020-10-01 16:51] VITALS: BP 122/64; PULSE 66; TEMP 97.6
[2020-10-01 20:15] VITALS: BP 129/66; PULSE 79; TEMP 97.6
[2020-10-02] VITALS (7 sets, daily range): BP systolic 113–132; BP diastolic 53–62; PULSE 57–66; TEMP 97.4–98
--- NOTE | 2020-10-02 04:39 | NUR ---
Patient has tolerated BIPAP well throughout the night. She has had no complaints of pain or SOA. Left hand INT flushes well. Patient has ambulated to bathroom with SBA twice overnight. Call light in reach, will continue to monitor.
--- NOTE | 2020-10-02 07:00 | NUR ---
awakened when entered room BIPAP on, bedside shift report received from AMINATA Greer
[2020-10-02 07:14] LABS: GRAN # 5.2 (1.4-6.5); GRAN % 77.6 % (42.2-75.2); HEMATOCRIT 37.1 % (37.0-47.0); HEMOGLOBIN 11.3 g/dl (12.5-16.0); LYMPH # 0.8 (1.2-3.4); LYMPH % 11.9 % (20.0-51.0); MEAN CELL VOLUME 102 fl (80.0-100.0); MEAN CORPUSCULAR HEMOGLOBIN 31 pg (27.0-31.0); MEAN CORPUSCULAR HGB CONC 31 g/dl (33.0-37.0); MONO # 0.7 (0.1-0.6); MONO % 10.1 % (1.7-9.3); PLATELET COUNT 173 K/mm3 (130-400); RED BLOOD COUNT 3.63 M/mm3 (4.10-5.30); REDCELL DISTRIBUTION WIDTH-CV 12.9 % (11.5-14.5)
[2020-10-02 07:30] LABS: CALCIUM 8.5 mg/dL (8.4-10.2); CREATININE, serum 0.75 (0.52-1.25); POTASSIUM 4.2 mmol/L (3.4-5.0)
--- NOTE | 2020-10-02 07:50 | NUR ---
resting in bed with O2 on at 2L/NC, cardiopulmonary was in and breathing treatment completed, full assessment completed, see interventions for further info, patient states her will assist her with ordering breakfast when he arrives, denies needs
--- NOTE | 2020-10-02 09:30 | NUR ---
occupational therapy in and assisted her with am hygiene, at bedside and assist her also, had breakfast and tolerated well
--- NOTE | 2020-10-02 10:05 | NUR ---
up to chair while linens changed, then back to bed and bipap on
--- NOTE | 2020-10-02 10:26 | NUR ---
JEMIMA met with the patient and her , Rob, to follow up and review d/c plan. The patient was on the bipap. Rob confirms that the plan is for the patient to return back home with him upon discharge. JEMIMA discussed home health services. Rob reports that they are not interested in home health at this time. He had no concerns for SW. SW to follow as needed. *Discharge plan: home with *
--- NOTE | 2020-10-02 11:16 | NUR ---
in bed with BIPAP on, appears to be sleeping, at bedside
--- NOTE | 2020-10-02 12:00 | NUR ---
awake and ready for lunch, BIPAP off and sitting up on side of bed to eat
--- NOTE | 2020-10-02 14:00 | NUR ---
back in bed with BIPAP on, appears to be sleeping
--- NOTE | 2020-10-02 17:15 | NUR ---
c/o headache and medicated with tylenol 650mg po
--- NOTE | 2020-10-02 18:55 | NUR ---
bedside shift rport given to AMINATA De La Rosa
--- NOTE | 2020-10-02 20:15 | NUR ---
Initial shift assessment done- taken off Bipap now,, will take an hour break before bed-- night meds given, o2 at 3.5L/nc,, states she is feeling better, denies headache, will call for needs, VSS
[2020-10-03 03:54] LABS: ARTERIAL BLD GAS O2 SATURATION 95.6 % (92-100); ARTERIAL BLD GAS TCO2 CT 41.6; ARTERIAL BLOOD GAS BASE EXCESS 10.7 (-2-2); ARTERIAL BLOOD GAS HCO3 39.3 meq/L (22-26); ARTERIAL BLOOD GAS PO2 79.5 mmHg (80-100); ARTERIAL BLOOD GAS pH 7.34 (7.35-7.45)
[2020-10-03 03:55] LABS: ARTERIAL BLOOD GAS PCO2 74.5 mmHg (35-45)
[2020-10-03 04:00] VITALS: BP 111/50; PULSE 58; TEMP 98.1
--- NOTE | 2020-10-03 06:20 | NUR ---
Quiet night-- did wear Bipap majority of night- off now for a break, states will go back on around 0800- o2 on at 2.5L/nc.
[2020-10-03 06:56] LABS: EOS % 0.2 % (0-4.0); GRAN # 3.7 (1.4-6.5); GRAN % 68.9 % (42.2-75.2); HEMATOCRIT 38.1 % (37.0-47.0); HEMOGLOBIN 11.3 g/dl (12.5-16.0); MEAN CELL VOLUME 103 fl (80.0-100.0); MEAN CORPUSCULAR HEMOGLOBIN 31 pg (27.0-31.0); MEAN CORPUSCULAR HGB CONC 30 g/dl (33.0-37.0); MEAN PLATELET VOLUME 10.2 fl (7.4-10.4); MONO # 0.7 (0.1-0.6); MONO % 12.7 % (1.7-9.3); PLATELET COUNT 176 K/mm3 (130-400); RED BLOOD COUNT 3.69 M/mm3 (4.10-5.30); REDCELL DISTRIBUTION WIDTH-CV 12.8 % (11.5-14.5)
[2020-10-03 07:06] LABS: CALCIUM 8.9 mg/dL (8.4-10.2); CREATININE, serum 0.78 (0.52-1.25); POTASSIUM 4.1 mmol/L (3.4-5.0)
[2020-10-03 07:23] VITALS: BP 151/63; PULSE 69; TEMP 97.7
--- NOTE | 2020-10-03 08:30 | NUR ---
Shift assessment complete. Pt sitting on edge of bed eating breakfast, at bedside. NC on at 2 lpm O2, will restart BIPAP around 1000. Pt A&Ox4. Heart RRR. Reports SOA w/exertion and weakness. Denies dizziness or chest pain. Does report a mild headache but declines intervention at this time. Inspiratory wheezes heard over right lung last. Denies needs at this time. Continuing to monitor.
[2020-10-03 12:02] VITALS: BP 127/52; PULSE 66; TEMP 97.6
--- NOTE | 2020-10-03 13:14 | NUR ---
The clinical team would like a referral sent to [facility]. JEMIMA contacted and faxed a referral to Sergei at [facility]. Awaiting screen.
[2020-10-03 17:11] VITALS: BP 132/63; PULSE 82; TEMP 98.2
[2020-10-03 18:54] VITALS: BP 126/56; PULSE 83; TEMP 98.2
[2020-10-03 23:53] VITALS: BP 130/60; PULSE 65; TEMP 98.6
--- NOTE | 2020-10-04 00:26 | NUR ---
Assessment completed , alert and oriented VS are stable patient is on bipap. Denies pain or SOB. She swallow her pills one at time. Requested to be off bipap for 45min switch her to 2.5L of Oxygen which is her baseline. Put bipap again at 2100. No further complain, give call light and within reach will continue to monitor.
[2020-10-04 03:55] VITALS: BP 135/64; PULSE 77; TEMP 97.9
[2020-10-04 04:51] LABS: ARTERIAL BLD GAS O2 SATURATION 90.2 % (92-100); ARTERIAL BLD GAS TCO2 CT 45.5; ARTERIAL BLOOD GAS BASE EXCESS 14.4 (-2-2); ARTERIAL BLOOD GAS HCO3 43.1 meq/L (22-26); ARTERIAL BLOOD GAS pH 7.37 (7.35-7.45)
[2020-10-04 04:52] LABS: ARTERIAL BLOOD GAS PCO2 76.3 mmHg (35-45)
[2020-10-04 07:25] LABS: BASO % 0.2 % (0.0-2.0); EOS # 0.1 (0.0-0.7); GRAN # 3.2 (1.4-6.5); GRAN % 65.6 % (42.2-75.2); HEMATOCRIT 37.8 % (37.0-47.0); HEMOGLOBIN 11.7 g/dl (12.5-16.0); LYMPH # 1.1 (1.2-3.4); LYMPH % 22.9 % (20.0-51.0); MEAN CELL VOLUME 101 fl (80.0-100.0); MEAN CORPUSCULAR HEMOGLOBIN 31 pg (27.0-31.0); MEAN CORPUSCULAR HGB CONC 31 g/dl (33.0-37.0); MONO # 0.5 (0.1-0.6); MONO % 9.7 % (1.7-9.3); PLATELET COUNT 178 K/mm3 (130-400); RED BLOOD COUNT 3.76 M/mm3 (4.10-5.30); REDCELL DISTRIBUTION WIDTH-CV 12.7 % (11.5-14.5)
[2020-10-04 07:37] LABS: CALCIUM 8.9 mg/dL (8.4-10.2); CREATININE, serum 0.81 (0.52-1.25); POTASSIUM 4.1 mmol/L (3.4-5.0)
[2020-10-04 08:18] VITALS: BP 131/64; PULSE 64; TEMP 97.9
--- NOTE | 2020-10-04 12:05 | NUR ---
Patient has done well today and has not had any complaints. Patient's did mention that her medications were due at 0800, and that there is a very strict schedule that needed to be followed. This RN explained that her medications were not due until 0900 on the patient's EMAR. The apologized and then explained to me their schedule. Patient still being put on bipap every 2hrs.
[2020-10-04 13:13] VITALS: BP 142/52; PULSE 77; TEMP 97.2
--- NOTE | 2020-10-04 14:39 | NUR ---
Sergei, at [facility], contacted JEMIMA. He reports that they tried to submit for auth, but the patient was not pulling up. He requested a copy of the patient's insurance cards. JEMIMA met with the patient and her and obtained a copy of the patient's insurance cards. JEMIMA notified and faxed the insurance cards to Sergei.
[2020-10-04 16:00] VITALS: BP 116/56; PULSE 64; TEMP 97.8
[2020-10-04 19:00] LABS: ALBUMIN 3.4 gm/dL (3.5-5.0); CREATININE, serum 0.8 (0.52-1.25); PHOSPHOROUS 3.3 mg/dL (2.5-4.5); POTASSIUM 4.2 mmol/L (3.4-5.0)
[2020-10-04 19:49] VITALS: BP 112/62; PULSE 70; TEMP 97.9
--- NOTE | 2020-10-04 20:18 | NUR ---
PT BP LOW VIA DYNAMAP. RECHECKED MANNUALLY, 112/62.
--- NOTE | 2020-10-04 21:07 | NUR ---
PROVIDER NOTIFIED TO CLARIFY DILAUDID DOSING. PROVIDER VERIFIED DOSING AND PRN SCHEDULING. WILL CONTINUE TO MONITOR PT AFTER RECEIVING PRN IV PAIN MEDICATION.
[2020-10-04 21:48] LABS: ALBUMIN 3.7 gm/dL (3.5-5.0); CALCIUM 9.5 mg/dL (8.4-10.2); CREATININE, serum 1.21 (0.52-1.25); PHOSPHOROUS 5.4 mg/dL (2.5-4.5); POTASSIUM 4.6 mmol/L (3.4-5.0)
--- NOTE | 2020-10-04 23:33 | NUR ---
BACKCHARTING. PT ALERT AND ORIENTED. AT BEDSIDE AT THIS TIME. PT DISCUSSED BIPAP SCHEDULE AND MEDICATIONS. PT HAS CLEAR LUNG SOUNDS UPON AUSCULATATION. VS STABLE AT THIS TIME. PT COMPLAINED OF HEADACHE, DENIES TYLENOL AT TIME OF ASSESSMENT. PT REQUESTED PRN TYELENOL FOR HEADACHE UPON FURTHER ASSESSMENT. PRN PAIN MEDICATION ADMINISTERED PER ORDERS. PT CALL LIGHT WITHIN REACH.
[2020-10-05] VITALS (7 sets, daily range): BP systolic 107–130; BP diastolic 45–56; PULSE 55–72; TEMP 97.4–98.4
--- NOTE | 2020-10-05 00:43 | NUR ---
PT CURRENTLY ON BIPAP. NO BIPAP OPTION IN VITAL SIGNS DOCUMENTATION.
[2020-10-05 04:51] LABS: ARTERIAL BLD GAS O2 SATURATION 94.3 % (92-100); ARTERIAL BLD GAS TCO2 CT 39.4; ARTERIAL BLOOD GAS BASE EXCESS 9.4 (-2-2); ARTERIAL BLOOD GAS HCO3 37.4 meq/L (22-26); ARTERIAL BLOOD GAS PO2 72.3 mmHg (80-100); ARTERIAL BLOOD GAS pH 7.36 (7.35-7.45)
[2020-10-05 04:53] LABS: ARTERIAL BLOOD GAS PCO2 67.8 mmHg (35-45)
--- NOTE | 2020-10-05 05:29 | NUR ---
PT ALERT AND ORIENTED THIS SHIFT. PT DENIED PAIN AFTER PRN TYLENOL FOR HEADACHE GIVEN AT START OF EVENING. PT SPO2 REMAINED >92% WHILE ON OXYGEN AND BIPAP DURING THE NIGHT. PT ABLE TO FREELY CONVERSE AND EXPRESS NEEDS. PT FREE FROM INJURY THIS SHIFT.
--- NOTE | 2020-10-05 05:57 | NUR ---
PT REQUESTED IV FLUSHED. FLUSHED WITH 5MLS, NO PHLEBITIS OR INFILTRATION NOTED AT THIS TIME.
[2020-10-05 07:43] LABS: HEMATOCRIT 38.2 % (37.0-47.0); HEMOGLOBIN 11.7 g/dl (12.5-16.0); MEAN CELL VOLUME 101 fl (80.0-100.0); MEAN CORPUSCULAR HEMOGLOBIN 31 pg (27.0-31.0); MEAN CORPUSCULAR HGB CONC 31 g/dl (33.0-37.0); MEAN PLATELET VOLUME 10.1 fl (7.4-10.4); PLATELET COUNT 178 K/mm3 (130-400); RED BLOOD COUNT 3.79 M/mm3 (4.10-5.30); REDCELL DISTRIBUTION WIDTH-CV 12.7 % (11.5-14.5)
[2020-10-05 07:51] LABS: INR 3.1 (0.8-3.0); PROTHROMBIN TIME 35.1 SECONDS (9.7-12.8)
[2020-10-05 07:57] LABS: ALBUMIN 3.6 gm/dL (3.5-5.0); BILIRUBIN,TOTAL 0.3 mg/dL (0.0-1.0); CALCIUM 9.1 mg/dL (8.4-10.2); CREATININE, serum 1.06 (0.52-1.25); MAGNESIUM 2.1 mg/dL (1.6-2.3); PHOSPHOROUS 4.3 mg/dL (2.5-4.5); POTASSIUM 3.7 mmol/L (3.4-5.0); TOTAL PROTEIN 6.2 gm/dL (6.4-8.2)
--- NOTE | 2020-10-05 09:10 | NUR ---
Shift assessment complete. Pt sitting up in bed, at bedside. A&Ox4. Heart RRR. Continues to have SOA w/minimal exertion. Currently wearing NC at 3 lpm O2. Expiratory wheezes heard over all last. Pt denies needs at this time. Will plan to place back on BIPAP around 1100 to give pt 90 minutes following eating/taking pills. Continuing to monitor.
--- NOTE | 2020-10-05 14:10 | NUR ---
Sergei, at [facility], reports that they received approval from the patient's insurance and are able to accept her. He states that he is just working on getting a bed now at one of their locations: [place], [place], or [place]. He is hopeful that a bed will come available this weekend. JEMIMA notified the PA. JEMIMA met with the patient and her , Rob, and updated them on the above. The patient and Rob are hopeful for the [place] location, but are open to the others. SW to continue to follow. *Discharge plan: [facility], once a bed is available*
--- NOTE | 2020-10-06 01:38 | NUR ---
PT ALERT AND ORIENTED UPON ASSESSMENT. PT HAD CLEAR LUNGS UPON AUSCULTATION. PT IV IN LEFT HAND LEAKING, PAIN WITH ATTEMPTED FLUSH, IV REMOVED AT THIS TIME. PT CONTINUING ON BIPAP AFTER 90 MINUTES FROM MEDICATION ADMINISTRATION. PT STATES SHE IS HAVING SOME HEADACHES, THINKS PAIN WILL SUBSIDE WITH REST. NO MEDICATION ADMINISTERED AT THIS TIME. PT CALL LIGHT WITHIN REACH.
[2020-10-06 03:44] VITALS: BP 125/52; PULSE 54; TEMP 97.3
[2020-10-06 03:53] VITALS: TEMP 97.2
[2020-10-06 05:37] LABS: ARTERIAL BLD GAS TCO2 CT 37.9; ARTERIAL BLOOD GAS BASE EXCESS 7.1 (-2-2); ARTERIAL BLOOD GAS HCO3 35.7 meq/L (22-26); ARTERIAL BLOOD GAS PO2 84.3 mmHg (80-100); ARTERIAL BLOOD GAS pH 7.32 (7.35-7.45)
--- NOTE | 2020-10-06 07:44 | NUR ---
PT ALERT AND ORIENTED THIS SHIFT. PT ABLE TO CONTINUE ON OVERNIGHT BIPAP WITH STABLE SPO2. PT STATED MILD HEADACHE RELIEVED WITH REST. PT IV ON LEFT HAND LEAKING, REMOVED AND NEW IV STARTED THIS SHIFT IN RIGHT WRIST. PT ABLE TO AMBULATE TO RESTROOM. PT FREE FROM INJURY THIS SHIFT.
[2020-10-06 08:14] LABS: INR 3.3 (0.8-3.0); PROTHROMBIN TIME 36.6 SECONDS (9.7-12.8)
[2020-10-06 08:17] LABS: ALBUMIN 3.6 gm/dL (3.5-5.0); CALCIUM 9.6 mg/dL (8.4-10.2); CREATININE, serum 0.98 (0.52-1.25); PHOSPHOROUS 5.1 mg/dL (2.5-4.5); POTASSIUM 4.1 mmol/L (3.4-5.0)
--- NOTE | 2020-10-06 08:30 | NUR ---
Assessment completed, alert/oriented, vital signs stable, denies pain or discomfort, reports her breathing is unchanged/ lungs are CTA/ no rhonci or wheezing noted, continue to alternate nasal cannula with bi-pap every 2 hours, heart RRR/ distal pulses aer palpable, she is at bedside eating breakfast and taking meds, present in the room, she has been approved for [facility] and we are awaiting a bed opening, discussed plan of care with patient and , they deny other needs at this time
[2020-10-06 08:35] VITALS: BP 127/48; PULSE 73; TEMP 97.2
[2020-10-06 11:59] VITALS: BP 98/46; PULSE 63; TEMP 98.2
--- NOTE | 2020-10-06 14:24 | NUR ---
SW informed patient is awaiting [facility] bed. No contact on this day for [facility] facility. SW will continue to follow.
[2020-10-06 17:59] VITALS: BP 111/45; PULSE 84; TEMP 97.9
[2020-10-06 19:26] VITALS: BP 112/47; PULSE 63; TEMP 98.1
--- NOTE | 2020-10-06 19:40 | NUR ---
CONTACTED KALEN HANEY ABOUT ELEVATED INR LEVEL 0F 3.3. RECEIVED CONFIRMATION TO HOLD COUMADIN AND RECHECK VALUE WITH AM LABS.
[2020-10-07] VITALS: BP 118/50; PULSE 61; TEMP 97.7
[2020-10-07 03:26] VITALS: BP 114/65; PULSE 54; TEMP 97.5
--- NOTE | 2020-10-07 03:27 | NUR ---
PT ON BIPAP, NO OPTION FOR VS DOCUMENTATION.
[2020-10-07 08:02] LABS: ALBUMIN 3.5 gm/dL (3.5-5.0); CALCIUM 9.8 mg/dL (8.4-10.2); CREATININE, serum 1.07 (0.52-1.25); PHOSPHOROUS 3.9 mg/dL (2.5-4.5)
[2020-10-07 08:05] LABS: INR 3.1 (0.8-3.0); PROTHROMBIN TIME 34.6 SECONDS (9.7-12.8)
[2020-10-07 08:20] VITALS: BP 132/56; PULSE 95; TEMP 98.3
[2020-10-07 10:14] LABS: ARTERIAL BLD GAS O2 SATURATION 96.4 % (92-100); ARTERIAL BLD GAS TCO2 CT 38.1; ARTERIAL BLOOD GAS BASE EXCESS 6.7 (-2-2); ARTERIAL BLOOD GAS HCO3 35.8 meq/L (22-26); ARTERIAL BLOOD GAS PO2 90.5 mmHg (80-100)
[2020-10-07 10:15] LABS: ARTERIAL BLOOD GAS PCO2 75.2 mmHg (35-45)
[2020-10-07 12:13] VITALS: BP 116/51; PULSE 66; TEMP 97.6
[2020-10-07 16:40] VITALS: BP 109/49; PULSE 61; TEMP 97.9
[2020-10-07 19:52] VITALS: BP 151/58; PULSE 80; TEMP 97.7
--- NOTE | 2020-10-07 21:19 | NUR ---
ALERT AND OX4. SETTING UP IN BED, PM MEDS GIVEN. GOING BACK ON BIPAP 1.5 HR AFTER PILLS, WILL CALL OUT FOR HELP. DENIES SOA WHEN SETTING BECOMES SOA W AMBULATION. RT FA FLUSHED. POC DISCUSSED. NEEDS MET.
[2020-10-08] VITALS (8 sets, daily range): BP systolic 110–130; BP diastolic 45–59; PULSE 54–769; TEMP 97–98.2
[2020-10-08 05:14] LABS: ARTERIAL BLD GAS O2 SATURATION 93.7 % (92-100); ARTERIAL BLD GAS TCO2 CT 38.7; ARTERIAL BLOOD GAS BASE EXCESS 8.6 (-2-2); ARTERIAL BLOOD GAS HCO3 36.6 meq/L (22-26); ARTERIAL BLOOD GAS PCO2 68.3 mmHg (35-45); ARTERIAL BLOOD GAS pH 7.35 (7.35-7.45)
--- NOTE | 2020-10-08 05:34 | NUR ---
RESTED THROUGH THE NIGHT WITHOUT INCIDENT.
[2020-10-08 07:16] LABS: ALBUMIN 3.5 gm/dL (3.5-5.0); CALCIUM 9.5 mg/dL (8.4-10.2); CREATININE, serum 1.11 (0.52-1.25); PHOSPHOROUS 3.3 mg/dL (2.5-4.5); POTASSIUM 4.2 mmol/L (3.4-5.0)
[2020-10-08 07:24] LABS: INR 1.7 (0.8-3.0); PROTHROMBIN TIME 18.8 SECONDS (9.7-12.8)
--- NOTE | 2020-10-08 08:34 | NUR ---
Pt awake upon entry, spouse in room assisting Pt to side of bed to eat breakfast. No C/O pain at this time. Shift assessment complete, left Pt sitting on side of bed eating.
--- NOTE | 2020-10-08 09:41 | NUR ---
JEMIMA attempted to contact Sergei at [facility] to follow up on bed status. SW left him a voicemail and faxed [facility] updates.
--- NOTE | 2020-10-08 15:22 | NUR ---
Sergei, at [facility], reports that they do not have a bed opening up today. He is hopeful for tomorrow and states that he has reached out to the patient's , Rob, and updated him on the above. SW updated the PA.
--- NOTE | 2020-10-08 21:58 | NUR ---
ALERT AND OX4. PM MEDS GIVEN. PT CONT TO DO BIPAP AND O2 ALTERNATING Q2. C/O CONTINUAL SOA WITH AMBULATION. POC DISCUSSED. CALL LIGHT WI REACH. NEEDS MET.
[2020-10-09 04:38] VITALS: BP 107/58; PULSE 56; TEMP 97.7
[2020-10-09 04:59] LABS: ARTERIAL BLD GAS O2 SATURATION 94.7 % (92-100); ARTERIAL BLD GAS TCO2 CT 38.5; ARTERIAL BLOOD GAS BASE EXCESS 7.8 (-2-2); ARTERIAL BLOOD GAS HCO3 36.3 meq/L (22-26); ARTERIAL BLOOD GAS PO2 75.8 mmHg (80-100); ARTERIAL BLOOD GAS pH 7.32 (7.35-7.45)
[2020-10-09 05:00] LABS: ARTERIAL BLOOD GAS PCO2 71.8 mmHg (35-45)
--- NOTE | 2020-10-09 05:25 | NUR ---
RESTED THROUGH THE NIGHT WITHOUT INCIDENT. NEEDS MET. BIPAP WORN OVERNIGHT.
[2020-10-09 06:26] LABS: HEMATOCRIT 37.9 % (37.0-47.0); HEMOGLOBIN 11.5 g/dl (12.5-16.0); MEAN CELL VOLUME 102 fl (80.0-100.0); MEAN CORPUSCULAR HEMOGLOBIN 31 pg (27.0-31.0); MEAN CORPUSCULAR HGB CONC 30 g/dl (33.0-37.0); PLATELET COUNT 176 K/mm3 (130-400); REDCELL DISTRIBUTION WIDTH-CV 12.8 % (11.5-14.5)
[2020-10-09 06:36] LABS: INR 1.5 (0.8-3.0); PROTHROMBIN TIME 16.6 SECONDS (9.7-12.8)
[2020-10-09 06:41] LABS: ALBUMIN 3.5 gm/dL (3.5-5.0); CALCIUM 8.9 mg/dL (8.4-10.2); CREATININE, serum 0.97 (0.52-1.25); PHOSPHOROUS 2.4 mg/dL (2.5-4.5); POTASSIUM 3.8 mmol/L (3.4-5.0)
--- NOTE | 2020-10-09 08:35 | NUR ---
Pt awake upon entry, spouse in room. No C/O pain at this time. shift assessment complete, left Pt sitting on side of bed eating breakfast.
[2020-10-09 09:02] VITALS: BP 119/61; PULSE 64; TEMP 97.8
[2020-10-09 12:05] VITALS: BP 115/56; PULSE 66; TEMP 97.7
--- NOTE | 2020-10-09 13:39 | NUR ---
Sergei, at [facility], reports that they have a bed available in their [place] location and are able to accept the patient today. JEMIMA notified the clinical team. JEMIMA met with the patient and her and updated them on the above. They are in agreement to the plan. The patient is to discharge today, 10/09[facility] [place]. Transportation was scheduled at 1830, via [facility]. JEMIMA informed the patient, her , RN, and Sergei at [facility] of the time. They were all agreeable to the time. JEMIMA presented the patient's , Rob, with the EMS Transfer Consent Form. Rob verbalized understanding and signed the form. No additional needs at this time.
[2020-10-09 16:00] VITALS: BP 123/55; PULSE 70; TEMP 98.2
[2020-10-09 19:50] VITALS: BP 127/83; PULSE 100; TEMP 98.6
--- NOTE | 2020-10-09 20:38 | NUR ---
1944- pt left per ems on [facility]. vss. night time meds given, reported no pain. all belongings packed and sent. report off to rn at [facility].
== END 2020-10-09 19:45 | disposition short-term general hospital (02) | DRG 189 ==
LOC: COL.ER 18:39 → MEDICAL 23:35
PROVIDERS: Emergency Medicine; Internal Medicine; Internal Medicine Nephrology; Internal Medicine Pulmonary Disease; Physician Assistant; Student in an Organized Health Care Education/Training Program; ADMIT Student in an Organized Health Care Education/Training Program
DX: J96.21 Acute and chronic respiratory failure with hypoxia (principal); D68.51 Activated protein C resistance; E87.2 Acidosis; J96.22 Acute and chronic respiratory failure with hypercapnia; Z88.2 Allergy status to sulfonamides; R40.2413 Glasgow coma scale score 13-15, at hospital admission; J43.9 Emphysema, unspecified; Z99.81 Dependence on supplemental oxygen; Z86.711 Personal history of pulmonary embolism; Z79.01 Long term (current) use of anticoagulants; K21.9 Gastro-esophageal reflux disease without esophagitis; G62.9 Polyneuropathy, unspecified; G20 Parkinson's disease; I10 Essential (primary) hypertension; Z20.822 Contact with and (suspected) exposure to COVID-19; D53.9 Nutritional anemia, unspecified; Z85.89 Personal history of malignant neoplasm of other organs and systems; E89.0 Postprocedural hypothyroidism; F32.9 Major depressive disorder, single episode, unspecified
CPT/HCPCS: OP; 99223-AI; 99231-AI; 99232-AI; 99233-AI; 99239; J1100; J2930; J7512

== ENCOUNTER 2020-11-06 12:57 | Emergency (ER) | payer MEDICARE ==
[~2020-11-06] VITALS: Ht 162.6 cm; Wt 87.7 kg
[~2020-11-06 12:57] MED LIST changes: +MELATIN 3 MG-11 TAB PO; +VOLTAREN GEL 1%1 TU TP
[2020-11-06 13:24] LABS: ARTERIAL BLD GAS O2 SATURATION 95.7 % (92-100); ARTERIAL BLD GAS TCO2 CT 38.2; ARTERIAL BLOOD GAS BASE EXCESS 7.2 (-2-2); ARTERIAL BLOOD GAS PO2 80.9 mmHg (80-100); ARTERIAL BLOOD GAS pH 7.32 (7.35-7.45)
[2020-11-06 13:25] LABS: ARTERIAL BLOOD GAS PCO2 72.3 mmHg (35-45)
[2020-11-06 13:29] LABS: HEMATOCRIT 40.9 % (37.0-47.0); HEMOGLOBIN 12.7 g/dl (12.5-16.0); MEAN CELL VOLUME 101 fl (80.0-100.0); MEAN CORPUSCULAR HEMOGLOBIN 31 pg (27.0-31.0); MEAN CORPUSCULAR HGB CONC 31 g/dl (33.0-37.0); MEAN PLATELET VOLUME 9.7 fl (7.4-10.4); PLATELET COUNT 213 K/mm3 (130-400); RED BLOOD COUNT 4.06 M/mm3 (4.10-5.30); REDCELL DISTRIBUTION WIDTH-CV 13.5 % (11.5-14.5)
[2020-11-06 13:41] LABS: ALBUMIN 4.5 gm/dL (3.5-5.0); BILIRUBIN,TOTAL 0.5 mg/dL (0.0-1.0); CALCIUM 9.6 mg/dL (8.4-10.2); CREATININE, serum 1.11 (0.52-1.25); POTASSIUM 4.5 mmol/L (3.4-5.0); TOTAL PROTEIN 7.7 gm/dL (6.4-8.2)
[2020-11-06 14:06] LABS: LYMPHOCYTE 10 % (20.0-51.0); NEUTROPHILS 85 % (42.0-75.2)
[2020-11-06 14:07] LABS: HYPOCHROMIA 2+; PLATELET ESTIMATE NORMAL (NORMAL)
[2020-11-06 14:16] VITALS: BP 123/64; PULSE 63
== END 2020-11-06 14:21 | disposition home or self-care (01) ==
LOC: COL.ER 12:57
PROVIDERS: Family Medicine
DX: E87.2 Acidosis (principal); J44.9 Chronic obstructive pulmonary disease, unspecified; D68.51 Activated protein C resistance; F32.9 Major depressive disorder, single episode, unspecified; G20 Parkinson's disease; I10 Essential (primary) hypertension; G62.9 Polyneuropathy, unspecified; E89.0 Postprocedural hypothyroidism; Z90.710 Acquired absence of both cervix and uterus; Z88.2 Allergy status to sulfonamides; Z79.890 Hormone replacement therapy; Z79.01 Long term (current) use of anticoagulants; Z79.899 Other long term (current) drug therapy

== ENCOUNTER → 2020-12-12 | Outpatient (CLI) | payer MEDICARE ==
[~2020-12-12] MED LIST changes: +K-DUR 10 MEQ T10 MEQ PO; +OMNICEF 300MG300 MG PO
[2020-12-12 07:51] LABS: ARTERIAL BLD GAS O2 SATURATION 94.5 % (92-100); ARTERIAL BLD GAS TCO2 CT 42.6; ARTERIAL BLOOD GAS BASE EXCESS 11.4 (-2-2); ARTERIAL BLOOD GAS HCO3 40.3 meq/L (22-26); ARTERIAL BLOOD GAS pH 7.34 (7.35-7.45)
[2020-12-12 07:52] LABS: ARTERIAL BLOOD GAS PCO2 75.7 mmHg (35-45)
--- NOTE | 2020-12-12 08:43 | NUR ---
REPORTED ABG TO SHIVANI FOR DR. ANGEL OFFICE.
== END ==
LOC: COL.PUL 11-23 07:30
PROVIDERS: Internal Medicine Pulmonary Disease
DX: J96.12 Chronic respiratory failure with hypercapnia (principal)

== ENCOUNTER 2021-01-11 16:49 | Inpatient (IN) | payer MEDICARE ==
[2021-01-11] VITALS (72 sets, daily range): BP systolic 105–137; BP diastolic 57–65; PULSE 66–68; TEMP 97.2–97.8; O2SAT 86–99
[~2021-01-11] VITALS: Ht 167.6 cm; Wt 93.4 kg
[~2021-01-11 16:49] MED LIST changes: -K-DUR 10 MEQ T10 MEQ PO; -OMNICEF 300MG300 MG PO
[2021-01-11 17:47] LABS: BASO % 0.5 % (0.0-2.0); EOS # 0.1 K/mm3 (0.0-0.7); EOS % 2.7 % (0-4.0); GRAN # 2.4 K/mm3 (1.4-6.5); GRAN % 58.3 % (42.2-75.2); HEMOGLOBIN 12.7 g/dl (12.5-16.0); MEAN CELL VOLUME 96 fl (80.0-100.0); MEAN CORPUSCULAR HEMOGLOBIN 30 pg (27.0-31.0); MEAN CORPUSCULAR HGB CONC 32 g/dl (33.0-37.0); MEAN PLATELET VOLUME 9.2 fl (7.4-10.4); MONO # 0.6 K/mm3 (0.1-0.6); MONO % 13.3 % (1.7-9.3); PLATELET COUNT 226 K/mm3 (130-400); RED BLOOD COUNT 4.19 M/mm3 (4.10-5.30)
[2021-01-11 18:00] LABS: ALBUMIN 3.7 gm/dL (3.4-4.8); BILIRUBIN,TOTAL 0.2 mg/dL (0.2-1.2); CALCIUM 10.5 mg/dL (8.4-10.2); CREATININE, serum 0.93 mg/dL (0.57-1.11); POTASSIUM 3.9 mmol/L (3.5-4.5); TOTAL PROTEIN 7.5 gm/dL (6.2-8.1)
[2021-01-11 19:26] LABS: INR 1.9 (0.8-3.0); PROTHROMBIN TIME 20.7 SECONDS (9.7-12.8)
[2021-01-11] MEDS ORDERED: COUMADIN 6MG6 MG/TAB PO (20:08)
[2021-01-11] MEDS ORDERED: ABILIFY 15MG TA15 MG PO (20:08)
[2021-01-11] MEDS ORDERED: K-DUR 10 MEQ T10 MEQ PO (20:09)
[2021-01-11] MEDS ORDERED: PROTONIX 40MG T40 MG PO (20:12)
[2021-01-11] MEDS ORDERED: SINGULAIR 110 MG/TAB PO (20:12)
[2021-01-11] MEDS ORDERED: SYNTHROID0.088 MG/T PO (20:12)
[2021-01-11] MEDS ORDERED: TRELEGY ELLIPT1 EACH IH (20:13)
[2021-01-11] MEDS ORDERED: COMBIRESP IH (20:14)
[2021-01-11] MEDS ORDERED: NEURONTIN100 MG/CAP PO (20:15)
[2021-01-11 20:55] LABS: ARTERIAL BLD GAS O2 SATURATION 97.1 % (92-100); ARTERIAL BLD GAS TCO2 CT 40.3; ARTERIAL BLOOD GAS HCO3 38.1 meq/L (22-26); ARTERIAL BLOOD GAS PO2 90.4 mmHg (80-100); ARTERIAL BLOOD GAS pH 7.36 (7.35-7.45)
[2021-01-11 20:56] LABS: ARTERIAL BLOOD GAS PCO2 68.9 mmHg (35-45)
[2021-01-12] VITALS (344 sets, daily range): BP systolic 105–129; BP diastolic 52–68; PULSE 59–74; TEMP 97.7–98.6; O2SAT 90–100
[2021-01-12 05:04] LABS: BASO % 0.2 % (0.0-2.0); GRAN # 3.9 K/mm3 (1.4-6.5); GRAN % 85.3 % (42.2-75.2); HEMATOCRIT 37.8 % (37.0-47.0); LYMPH # 0.6 K/mm3 (1.2-3.4); LYMPH % 12.9 % (20.0-51.0); MEAN CELL VOLUME 95 fl (80.0-100.0); MEAN CORPUSCULAR HEMOGLOBIN 30 pg (27.0-31.0); MEAN CORPUSCULAR HGB CONC 32 g/dl (33.0-37.0); MEAN PLATELET VOLUME 9.6 fl (7.4-10.4); MONO % 0.9 % (1.7-9.3); PLATELET COUNT 219 K/mm3 (130-400); REDCELL DISTRIBUTION WIDTH-CV 12.8 % (11.5-14.5)
[2021-01-12 05:17] LABS: CALCIUM 9.9 mg/dL (8.4-10.2); CREATININE, serum 0.86 mg/dL (0.57-1.11); POTASSIUM 4.5 mmol/L (3.5-4.5)
--- NOTE | 2021-01-12 07:00 | NUR ---
RECEIVED REPORT FROM AMINATA LAUGHLIN. PT RESTING IN BED ON BIPAP OF 35%. VSS. CALL LIGHT WITHIN REACH.
--- NOTE | 2021-01-12 13:42 | NUR ---
REPORT GIVEN TO AMINATA MALONE. PT TRASNFERRED VIA WC ON 3L VIA NC TO 310. RT TAKES BIPAP TO NEW ROOM. PT ASSISTED INTO BATHROOM THEN TO BED. ONCE INTO BED PT PLACED ON BIPAP AT 30%. ALL PERSONAL BELONGINGS SENT WITH PT. PT'S ACCOMPANYING DURING THIS TIME. AMINATA MALONE AWARE OF PT'S ARRIVAL. CALL LIGHT WITHIN REACH.
--- NOTE | 2021-01-12 14:39 | NUR ---
PT RECEIVED ON FLOOR. PT VITAL SIGNS OBTAINED, MED REC, ALLERGIES, AND PHARMACY CONFIRMED.
--- NOTE | 2021-01-12 15:36 | NUR ---
PT AMBULATED TO BATHROOM, DESATURATION TO 70% O2 INCREASED TO 4L TO AID IN REOXYGENATION. REPLACED AT 3L AFTER 90% REACHED.
--- NOTE | 2021-01-12 19:37 | NUR ---
PT CONTINUING ON PLAN OF CARE. PT ABLE TO CALL OUT FOR NEEDS. PT ON BIPAP UNLESS EATING. PT AT BEDSIDE VISITING THIS SHIFT. SHIFT REPORT GIVEN TO AMINATA MAYS.
--- NOTE | 2021-01-12 20:30 | NUR ---
Initial shift assessment done- on Bipap but taken off for meds and put on o2 3L/nc, Up to bathroom with o2, SOB with exertion, o2 sats down to 81% but with 3-4 minutes back up to 92%, will put back on Bipap in about 30 minutes- pt alert.oriented, pleasant, no requests at this time, denies need for snack, tele on.
[2021-01-13] VITALS (7 sets, daily range): BP systolic 11–159; BP diastolic 48–90; PULSE 59–112; TEMP 97.3–97.9
[2021-01-13 04:20] LABS: ARTERIAL BLD GAS TCO2 CT 36.3; ARTERIAL BLOOD GAS BASE EXCESS 8.1 (-2-2); ARTERIAL BLOOD GAS HCO3 34.6 meq/L (22-26); ARTERIAL BLOOD GAS PCO2 54.8 mmHg (35-45); ARTERIAL BLOOD GAS PO2 114.7 mmHg (80-100); ARTERIAL BLOOD GAS pH 7.42 (7.35-7.45)
--- NOTE | 2021-01-13 05:37 | NUR ---
Quiet night- on Bipap all night, VSS, Up to bathroom a couple times during the night
[2021-01-13 06:57] LABS: BASO % 0.1 % (0.0-2.0); GRAN # 7.1 K/mm3 (1.4-6.5); GRAN % 89.1 % (42.2-75.2); HEMOGLOBIN 11.4 g/dl (12.5-16.0); LYMPH # 0.6 K/mm3 (1.2-3.4); LYMPH % 7.8 % (20.0-51.0); MEAN CELL VOLUME 94 fl (80.0-100.0); MEAN CORPUSCULAR HEMOGLOBIN 30 pg (27.0-31.0); MEAN CORPUSCULAR HGB CONC 32 g/dl (33.0-37.0); MONO # 0.2 K/mm3 (0.1-0.6); MONO % 2.4 % (1.7-9.3); PLATELET COUNT 237 K/mm3 (130-400); RED BLOOD COUNT 3.77 M/mm3 (4.10-5.30); REDCELL DISTRIBUTION WIDTH-CV 13.2 % (11.5-14.5)
[2021-01-13 07:00] LABS: INR 3.1 (0.8-3.0); PROTHROMBIN TIME 34.5 SECONDS (9.7-12.8)
[2021-01-13 07:06] LABS: C-REACTIVE PROTEIN 0.65 mg/dL (0.00-0.50); CALCIUM 9.4 mg/dL (8.4-10.2); CREATININE, serum 0.85 mg/dL (0.57-1.11); POTASSIUM 4.3 mmol/L (3.5-4.5)
[2021-01-13 07:08] LABS: HEMATOCRIT 35.4 % (37.0-47.0)
--- NOTE | 2021-01-13 08:44 | NUR ---
PT ALERT AND ORIENTED. PT NEURO CHECK PERFORMED, SLIGHT WEAKER LEFT HAND NP THAN RIGHT. PT HAS EXPIRATORY WHEEZES AUSCULTATEDIN ALL LEFT LOBES AND RIGHT UPPER LOBE. PT RIGHT MIDDLE AND LOWER LOBES DIMINISHED. PT HAS ACTIVE BS, DISTENDED ABDOMEN, SOFT, NON-TENDER TO TOUCH. PT HAS PREVIOUS ULCER ON LEFT ANKLE, FULLY HEALED, DISCOLORED. PT STATES ABLE TO AMBULATE TO BATHROOM WITH ASSIST. PT AT BEDSIDE, BREAKFAST ON TABLE AND CALL LIGHT WITHIN REACH.
--- NOTE | 2021-01-13 12:51 | NUR ---
Sw met with the pt who stated preferencec to return home once medially stable. The pt lives at home with , randy [phone]. The is independent on all ADLs, but does use walker, trilgy, o2 at 2L, nebulizer. The pt PCP is Dr. Rao and gets her medications from [facility] in [place].The pt has a DPOA-HC and is in the chart. No other needs stated and Sw to await further recommendations and follow up as needed. D/c: Home with .
--- NOTE | 2021-01-13 14:01 | NUR ---
PHYSICAL THERAPY BROUGHT WALKER FOR PT TO USE IN ROOM. FALL RISK ASSESSMENT UPDATED.
--- NOTE | 2021-01-13 14:10 | NUR ---
RECHECKED BLOOD PRESSURE AT THIS TIME 124/59, MAP OF 73.
--- NOTE | 2021-01-13 14:15 | NUR ---
PT STATED HAT FELL INTO TOILET WITH VOID, NO RECORDED VALUE IN FLOW SHEET NOTED. PT REFUSED OFFER TO GO TO RESTROOM AT THIS TIME.
--- NOTE | 2021-01-13 16:54 | NUR ---
PT CONTINUING ON PLAN OF CARE. PT BROUGHT HOME TRILOGY, RESPIRATORY THERAPY AIDED IN SETTING UP FOR PT. PT CURRENTLY ON HOME TRILOGY. PT ABLE TO AMBULATE TO RESTROOM USING WALKER, DESATURATION NOTED WITH EXERTION, PT ABLE TO RECOVER SPO2 WHEN SITTING BACK AT BEDSIDE. NO SIGNIFICANT CHANGE IN PT STATUS NOTICED THIS SHIFT. PT DROP BOARD MAN IMPROVED TO EQUAL STRENGTH OVER SHIFT. PT ABLE TO CALL OUT FOR NEEDS.
--- NOTE | 2021-01-13 20:45 | NUR ---
Initial shift assessment done- Up to bathroom with walker and assistance, had o2 on at 4L/nc, back to bed, SOB, pursed lip breathing sats 72% and steadily back up to 92% with a minute or two, did take night meds etc, will wait til antibiotic is done to put on her Trilogy --no other requests, tele on, states headache earlier in the day is better now , hopes to go home tomorrow
[2021-01-14 00:54] VITALS: BP 124/47; PULSE 84; TEMP 97.5
--- NOTE | 2021-01-14 02:44 | NUR ---
PT REFUSED TREATMENT. SAID SHE FELT GREAT AND WOULD RATHER SLEEP FOR POSSIBLE DISCHARGE IN THE AM
[2021-01-14 04:58] VITALS: BP 132/58; PULSE 65; TEMP 97.6
--- NOTE | 2021-01-14 06:23 | NUR ---
Quiet night- did wear her Trilogy all night- sats 90-93%, tolerated well, VSS, no requests.
[2021-01-14 06:40] LABS: HEMATOCRIT 39.4 % (37.0-47.0); HEMOGLOBIN 12.2 g/dl (12.5-16.0); MEAN CORPUSCULAR HEMOGLOBIN 31 pg (27.0-31.0); MEAN CORPUSCULAR HGB CONC 31 g/dl (33.0-37.0); MEAN PLATELET VOLUME 9.8 fl (7.4-10.4); PLATELET COUNT 249 K/mm3 (130-400); RED BLOOD COUNT 3.99 M/mm3 (4.10-5.30); REDCELL DISTRIBUTION WIDTH-CV 13.3 % (11.5-14.5)
[2021-01-14 06:50] LABS: MEAN CELL VOLUME 99 fl (80.0-100.0)
[2021-01-14 06:51] LABS: INR 4.3 (0.8-3.0)
[2021-01-14 06:53] LABS: PROTHROMBIN TIME 48.6 SECONDS (9.7-12.8)
[2021-01-14 06:58] LABS: ALBUMIN 3.6 gm/dL (3.4-4.8); BILIRUBIN,TOTAL 0.1 mg/dL (0.2-1.2); CALCIUM 9.8 mg/dL (8.4-10.2); CREATININE, serum 0.87 mg/dL (0.57-1.11); POTASSIUM 4.2 mmol/L (3.5-4.5); TOTAL PROTEIN 7.2 gm/dL (6.2-8.1)
[2021-01-14 07:42] LABS: BAND 7 % (0-10); LYMPHOCYTE 3 % (20.0-51.0); MYELOCYTE 1 % (0-0); NEUTROPHILS 89 % (42.0-75.2); PLATELET ESTIMATE NORMAL (NORMAL)
[2021-01-14 07:43] LABS: HYPOCHROMIA 2+
[2021-01-14 09:14] VITALS: BP 130/53; PULSE 74; TEMP 97.7
[2021-01-14 11:46] VITALS: BP 143/56; PULSE 70; TEMP 97.4
[2021-01-14 16:28] VITALS: BP 135/62; PULSE 64; TEMP 97.4
--- NOTE | 2021-01-14 18:00 | NUR ---
Patient has had an ok day. Currently requiring 3L of O2 via nasal cannula. Wears trilogy in the PM. New IV started in right AC. Continues to desat upon exertion. Patient denies any further needs at this time. Call light in reach. Fall precautions in place. VSS. Patient A&O.
[2021-01-14 20:00] VITALS: BP 141/58; PULSE 82; TEMP 97.6
--- NOTE | 2021-01-14 22:48 | NUR ---
PT ASSESSMENT COMPLETED. PT COMPLAINED OF SOB, INCREASED OXYGEN TO 5 L, 02 SATS IMPROVED TO 95%. DECREASED PT TO 3L. CALL LIGHT IN REACH. NO OTHER NEEDS
[2021-01-15 00:26] VITALS: BP 128/53; PULSE 64; TEMP 97.4
--- NOTE | 2021-01-15 02:46 | NUR ---
PT REFUSED TREATMENT. SLEEPING COMFORTABLY. WILL CALL IF CHANGES MIND OR WANTS PRN
[2021-01-15 04:56] VITALS: BP 123/63; PULSE 58; TEMP 97.6
[2021-01-15 06:50] LABS: GRAN % 88.9 % (42.2-75.2); HEMATOCRIT 38.7 % (37.0-47.0); HEMOGLOBIN 11.8 g/dl (12.5-16.0); LYMPH # 0.5 K/mm3 (1.2-3.4); LYMPH % 6.3 % (20.0-51.0); MEAN CELL VOLUME 101 fl (80.0-100.0); MEAN CORPUSCULAR HEMOGLOBIN 31 pg (27.0-31.0); MEAN CORPUSCULAR HGB CONC 31 g/dl (33.0-37.0); MEAN PLATELET VOLUME 9.8 fl (7.4-10.4); MONO # 0.3 K/mm3 (0.1-0.6); MONO % 4.2 % (1.7-9.3); PLATELET COUNT 243 K/mm3 (130-400); RED BLOOD COUNT 3.83 M/mm3 (4.10-5.30); REDCELL DISTRIBUTION WIDTH-CV 13.7 % (11.5-14.5)
[2021-01-15 07:06] LABS: INR 5.1 (0.8-3.0); PROTHROMBIN TIME 57.1 SECONDS (9.7-12.8)
[2021-01-15 07:08] LABS: CALCIUM 9.3 mg/dL (8.4-10.2); CREATININE, serum 0.8 mg/dL (0.57-1.11); POTASSIUM 4.4 mmol/L (3.5-4.5)
[2021-01-15 08:00] VITALS: BP 136/64; PULSE 72; TEMP 98.4
--- NOTE | 2021-01-15 08:35 | NUR ---
PTS SATS 87% ON ROOM AIR. PLACED PT ON HER 2 LITERS SATS 90%. PT NEEDED 4 LITERS WITH AMBULATION.
[2021-01-15] MEDS ORDERED: PREDNISONE20 MG PO (10:36)
[2021-01-15] MEDS ORDERED: MONODOX100 PO (10:37)
[2021-01-15] MEDS ORDERED: OMNICEF 300MG300 MG PO (10:37)
[2021-01-15 11:13] VITALS: BP 143/60; PULSE 78; TEMP 97.8
--- NOTE | 2021-01-15 11:47 | NUR ---
The patient is to discharge back home with her today, 01/15. JEMIMA met with the patient and her to review discharge plan. The patient and her had no concerns about returning home. JEMIMA presented and read the IM form outloud to the patient. The patient verbalized understanding and gave JEMIMA approval to sign the form on her behalf. JEMIMA placed a copy of the form in the patient's discharge folder. No additional needs at this time.
== END 2021-01-15 12:15 | disposition home or self-care (01) | DRG 189 ==
LOC: COL.ER 16:49 → ICU 18:46 → MEDICAL 18:46
PROVIDERS: Family Medicine; Internal Medicine; Internal Medicine Sleep Medicine; Nurse Practitioner Family; Physician Assistant; ADMIT Student in an Organized Health Care Education/Training Program
PROC: 5A09457 Assistance with Respiratory Ventilation, 24-96 Consecutive Hours, Continuous Positive Airway Pressure (ICD-10-PCS; principal; 2021-01-12)
PROC: 5A0935A Assistance with Respiratory Ventilation, Less than 24 Consecutive Hours, High Flow/Velocity Cannula (ICD-10-PCS; 2021-01-14)
DX: J96.21 Acute and chronic respiratory failure with hypoxia (principal); J44.1 Chronic obstructive pulmonary disease with (acute) exacerbation; E87.4 Mixed disorder of acid-base balance; E87.0 Hyperosmolality and hypernatremia; D68.2 Hereditary deficiency of other clotting factors; J96.22 Acute and chronic respiratory failure with hypercapnia; D53.9 Nutritional anemia, unspecified; E89.0 Postprocedural hypothyroidism; F32.A Depression, unspecified; K21.9 Gastro-esophageal reflux disease without esophagitis; I10 Essential (primary) hypertension; G62.9 Polyneuropathy, unspecified; R73.9 Hyperglycemia, unspecified; G20 Parkinson's disease; E83.52 Hypercalcemia; Z85.89 Personal history of malignant neoplasm of other organs and systems; Z88.2 Allergy status to sulfonamides; Z87.891 Personal history of nicotine dependence; Z79.01 Long term (current) use of anticoagulants; Z86.711 Personal history of pulmonary embolism; Z23 Encounter for immunization
CPT/HCPCS: 99223-AI; 99232-AI; 99233-AI; 99239; J0696; J2930

== ENCOUNTER → 2021-01-23 | Outpatient (CLI) | payer MEDICARE ==
[~2021-01-23] MED LIST changes: +K-DUR 10 MEQ T10 MEQ PO; +OMNICEF 300MG300 MG PO
[2021-01-23 08:33] LABS: ARTERIAL BLD GAS O2 SATURATION 93.2 % (92-100); ARTERIAL BLD GAS TCO2 CT 38.1; ARTERIAL BLOOD GAS PO2 71.1 mmHg (80-100); ARTERIAL BLOOD GAS pH 7.35 (7.35-7.45)
[2021-01-23 08:34] LABS: ARTERIAL BLOOD GAS PCO2 66.3 mmHg (35-45)
== END ==
LOC: COL.PUL 01-07 07:05
PROVIDERS: Internal Medicine Pulmonary Disease
DX: J96.12 Chronic respiratory failure with hypercapnia (principal)

== ENCOUNTER 2021-02-04 11:37 | Observation (INO) | payer MEDICARE ==
[~2021-02-04] VITALS: Ht 170.2 cm; Wt 88.6 kg
[2021-02-04 15:51] LABS: BASO % 0.3 % (0.0-2.0); EOS # 0.1 K/mm3 (0.0-0.7); EOS % 1.2 % (0-4.0); GRAN # 4.5 K/mm3 (1.4-6.5); GRAN % 74.5 % (42.2-75.2); HEMATOCRIT 39.4 % (37.0-47.0); HEMOGLOBIN 12.4 g/dl (12.5-16.0); LYMPH # 0.9 K/mm3 (1.2-3.4); LYMPH % 14.6 % (20.0-51.0); MEAN CELL VOLUME 97 fl (80.0-100.0); MEAN CORPUSCULAR HEMOGLOBIN 31 pg (27.0-31.0); MEAN CORPUSCULAR HGB CONC 32 g/dl (33.0-37.0); MEAN PLATELET VOLUME 9.3 fl (7.4-10.4); MONO # 0.5 K/mm3 (0.1-0.6); MONO % 8.4 % (1.7-9.3); PLATELET COUNT 192 K/mm3 (130-400); RED BLOOD COUNT 4.06 M/mm3 (4.10-5.30); REDCELL DISTRIBUTION WIDTH-CV 13.2 % (11.5-14.5)
[2021-02-04 16:08] LABS: ALBUMIN 3.7 gm/dL (3.4-4.8); BILIRUBIN,TOTAL 0.3 mg/dL (0.2-1.2); CALCIUM 9.8 mg/dL (8.4-10.2); CREATININE, serum 0.83 mg/dL (0.57-1.11); POTASSIUM 4.2 mmol/L (3.5-4.5); TOTAL PROTEIN 7.4 gm/dL (6.2-8.1)
[2021-02-04 16:58] LABS: ARTERIAL BLD GAS O2 SATURATION 93.1 % (92-100); ARTERIAL BLD GAS TCO2 CT 37.2; ARTERIAL BLOOD GAS BASE EXCESS 6.4 (-2-2); ARTERIAL BLOOD GAS PO2 66.6 mmHg (80-100); ARTERIAL BLOOD GAS pH 7.31 (7.35-7.45)
[2021-02-04 16:59] LABS: ARTERIAL BLOOD GAS PCO2 70.7 mmHg (35-45)
[2021-02-04 18:33] LABS: INR 3.5 (0.8-3.0); PROTHROMBIN TIME 39.7 SECONDS (9.7-12.8)
[2021-02-04] MEDS ORDERED: COUMADIN 5MG5 MG/TAB PO (21:29)
--- NOTE | 2021-02-04 21:29 | NUR ---
RECEIVED REPORT FROM Lam RNRAYA. PATIENT'S ARRIVAL TO ROOM 329 FOR OBS PENDING PATIENT BEING TRANSPORTED FROM [facility]. STAFF.
--- NOTE | 2021-02-04 21:40 | NUR ---
PATIENT ARRIVED, PLACED IN ROOM 329. WITH PATIENT. PATIENT UP TO BSC.
[2021-02-04 22:00] VITALS: BP 124/53; PULSE 68; TEMP 98.4
--- NOTE | 2021-02-05 01:53 | NUR ---
PATIENT RESTING, SLEEPING AND AWAKENS EASILY WHEN STAFF ENTER ROOM. WEARING BiPAP, PLACED ON BY R.T. WITH NO FURTHER COMPLAINTS OR CONCERNS VOICED. BREATHING EVEN AND NONLABORED WHILE ON BiPAP. HAS NOT VOIDED AGAIN SINCE ADMIT TO ROOM. REPORTS INTERMITTENT LEFT LOWER LUNG PAIN WHEN AWAKE.
[2021-02-05 03:30] VITALS: BP 107/51; PULSE 62; TEMP 97.4
[2021-02-05 03:56] LABS: ARTERIAL BLD GAS O2 SATURATION 96.4 % (92-100); ARTERIAL BLD GAS TCO2 CT 39.8; ARTERIAL BLOOD GAS BASE EXCESS 9.6 (-2-2); ARTERIAL BLOOD GAS HCO3 37.6 meq/L (22-26); ARTERIAL BLOOD GAS PO2 80.7 mmHg (80-100); ARTERIAL BLOOD GAS pH 7.34 (7.35-7.45)
[2021-02-05 03:58] LABS: ARTERIAL BLOOD GAS PCO2 71.7 mmHg (35-45)
[2021-02-05 06:47] LABS: BASO % 0.2 % (0.0-2.0); GRAN # 3.9 K/mm3 (1.4-6.5); GRAN % 84.7 % (42.2-75.2); HEMOGLOBIN 12.5 g/dl (12.5-16.0); LYMPH # 0.6 K/mm3 (1.2-3.4); LYMPH % 13.1 % (20.0-51.0); MEAN CELL VOLUME 97 fl (80.0-100.0); MEAN CORPUSCULAR HEMOGLOBIN 30 pg (27.0-31.0); MEAN CORPUSCULAR HGB CONC 31 g/dl (33.0-37.0); MEAN PLATELET VOLUME 9.5 fl (7.4-10.4); MONO # 0.1 K/mm3 (0.1-0.6); MONO % 1.1 % (1.7-9.3); PLATELET COUNT 213 K/mm3 (130-400); RED BLOOD COUNT 4.11 M/mm3 (4.10-5.30); REDCELL DISTRIBUTION WIDTH-CV 13.2 % (11.5-14.5)
[2021-02-05 06:58] LABS: PROTHROMBIN TIME 33.4 SECONDS (9.7-12.8)
--- NOTE | 2021-02-05 07:02 | NUR ---
CHANGE OF SHIFT REPORT WRITTEN FOR DAY SHIFT RNKAVIN.
[2021-02-05 07:06] LABS: CALCIUM 10.1 mg/dL (8.4-10.2); CREATININE, serum 0.88 mg/dL (0.57-1.11); POTASSIUM 4.5 mmol/L (3.5-4.5)
[2021-02-05 08:00] VITALS: BP 136/59; PULSE 72; TEMP 97.2
--- NOTE | 2021-02-05 10:30 | NUR ---
Patient alert and oriented, answers questions appropriately. See assessment. Clear in upper lobes, scattered wheezes in BLL. Respers even and unlabored, no use of accessory muscles noted for respiration. Oxygen 2l/nc, increases to 4l/nc with ambulation. Bipap used for sleep and prn. No c/o at this time.
[2021-02-05 12:00] VITALS: BP 120/54; PULSE 72; TEMP 97.9
--- NOTE | 2021-02-05 13:47 | NUR ---
Electronic Maintenance Supervisor met with patient to discuss discharge planning. Patient lives in [place] with her , Rob (ph#[phone]) who is at bedside. Patient sees Dr. Trisha Rao for primary care and obtains medications from [facility] with no difficulties. Patient does remark that her inhalers are expensive. Patient uses home oxygen and home trilogy from [facility] and also uses a walker for ambulation. Patient's advised that when they go out into the community, patient utilizes a wheelchair. Patient states she is mostly independent with ADLS but gets help with bathing from her . Patient advised she has DPOA-HC that designates her . Patient plans to return home upon discharge. SW discussed home health services with the patient as well as the benefits as patient was recently admitted to the hospital. Patient and decline HH services at this time. Discharge Plan: Home
--- NOTE | 2021-02-05 14:58 | NUR ---
Patient transfered to medical unit at 1420. Report called to AMINATA Elliott.
[2021-02-05 15:52] VITALS: BP 112/49; PULSE 69; TEMP 97.5
[2021-02-05] MEDS ORDERED: COUMADIN 1MG1 MG/TAB PO (16:15)
--- NOTE | 2021-02-05 16:53 | NUR ---
Patient transferred from surgical to room 315. Upon initial assessment, patient requiring 2L of O2 via nasal cannula. With exertion, patient requires 4L of O2 via nasal cannula. Patient requires bipap at night. Lungs sounds diminished in all last. Normal S1 and S2 sounds present, radial and pedal pulses +2 bilaterally. Bowel sounds present in all four quadrants. Skin is irritated on bridge of nose from bipap mask, no other skin issues noted. Patient A&O. VSS. Patient denies any pain at this time, but states when she sits up in bed, she has a sharp pain in her left lung base. Patient denies any further needs at this time. Call light in reach.
[2021-02-05 20:00] VITALS: BP 126/55; PULSE 81; TEMP 97.5
--- NOTE | 2021-02-05 23:56 | NUR ---
Recieved bedside report from AMINATA Gaming at 11pm. Patient assessed at this time. Patient resting in bed with Bipap on at this time. Patient A/Ox3. Breathing even and unlabored. Patient denies any pain or discomfort. VS stable. No acute distress noted. Call light in reach. Will continue to monitor.
[2021-02-06 00:50] VITALS: BP 108/45; PULSE 62; TEMP 97.8
[2021-02-06 04:33] VITALS: BP 126/55; PULSE 66; TEMP 97.7
[2021-02-06 04:46] LABS: ARTERIAL BLD GAS O2 SATURATION 95.1 % (92-100); ARTERIAL BLD GAS TCO2 CT 39.8; ARTERIAL BLOOD GAS HCO3 37.6 meq/L (22-26); ARTERIAL BLOOD GAS PO2 72.6 mmHg (80-100); ARTERIAL BLOOD GAS pH 7.33 (7.35-7.45)
[2021-02-06 04:49] LABS: ARTERIAL BLOOD GAS PCO2 72.6 mmHg (35-45)
--- NOTE | 2021-02-06 06:36 | NUR ---
Patient reports left side chest wall discomfort whenever she coughs and requesting PRN Mortrin. PRN Mortrin given per APR. Call light in reach.
[2021-02-06 07:20] LABS: INR 2.6 (0.8-3.0); PROTHROMBIN TIME 28.9 SECONDS (9.7-12.8)
[2021-02-06 07:52] VITALS: BP 125/47; PULSE 74; TEMP 97.6
--- NOTE | 2021-02-06 08:20 | NUR ---
PT PLEASANT, AOX4, PT IN ROOM, PT AND SPOUSE EAGER FOR DISCHARGE, EDUCATION PROVIDED ON MEDICATION, ASSESSMENT PERFORMED, MEDICATIONS GIVEN, VITALS REVIEWED, CALL LIGHT WITHIN REACH, IV WRAPPED WITH LENARD WRAP, NO OTHER NEEDS AT THIS TIME. PT ATE 100% BREAKFAST
--- NOTE | 2021-02-06 08:20 | NUR ---
PT REPORTS NO BM SINCE THURSDAY BUT IS STILL PASSING GAS
[2021-02-06 11:44] VITALS: BP 108/57; PULSE 72; TEMP 98.4
--- NOTE | 2021-02-06 16:06 | NUR ---
PT MOVED TO [address] NEXT TO PT, NO OTHER NEEDS.
--- NOTE | 2021-02-06 16:31 | NUR ---
PT ASSISTED BACK INTO ROOM, ATTACHED TO OXYGEN
[2021-02-06 17:05] VITALS: BP 112/63; PULSE 78; TEMP 98.1
--- NOTE | 2021-02-06 18:03 | NUR ---
PT ON AND OFF BIPAP DURING SHIFT, MOTRIN GIVEN FOR PAIN IN AM, PT AOX4, UNEVENTFUL SHIFT
--- NOTE | 2021-02-06 20:00 | NUR ---
PATIENT IS A&O. VSS ON TELE. PATIENT IS ON 02 @ 2L PER NC TO KEEP SATS ABOVE 92%, PATIENT REQUIRED 4L PER NC WITH ANY ACTIVITY. NOTED DSYPNEA ON EXERTION. A&P LUNG BASES ARE DEMINISHED. NOTED OCCATIONAL COUGH, NON-PRODUCTIVE, AND SHE REPORTS IT HURTS WHEN SHE COUGHS. BIPAP AT BEDSIDE. +1 BLE EDEMA. SCD'S CURRENTLY OFF. PATIENT ON CONTACT FOR MRSA. HEAD TO TOE ASSESSMENT COMPLETE. LEFT AC IV TO INT. HS MEDS GIVEN. NO OTHER NEEDS AT THIS TIME. RT AT BEDSIDE.
[2021-02-06 20:06] VITALS: BP 145/61; PULSE 64; TEMP 97.7
[2021-02-07 00:04] VITALS: BP 108/53; PULSE 63; TEMP 97.7
[2021-02-07 03:47] LABS: ARTERIAL BLD GAS O2 SATURATION 96.9 % (92-100); ARTERIAL BLD GAS TCO2 CT 40.4; ARTERIAL BLOOD GAS BASE EXCESS 10.3 (-2-2); ARTERIAL BLOOD GAS HCO3 38.2 meq/L (22-26); ARTERIAL BLOOD GAS PO2 88.5 mmHg (80-100); ARTERIAL BLOOD GAS pH 7.36 (7.35-7.45)
[2021-02-07 03:48] LABS: ARTERIAL BLOOD GAS PCO2 69.7 mmHg (35-45)
[2021-02-07 04:17] VITALS: BP 128/61; PULSE 57; TEMP 97.6
--- NOTE | 2021-02-07 05:53 | NUR ---
Patient rested well throughout the night. VS stable. No acute distress noted. Call light in reach.
[2021-02-07 06:24] LABS: BASO % 0.1 % (0.0-2.0); GRAN # 8.4 K/mm3 (1.4-6.5); GRAN % 87.9 % (42.2-75.2); HEMOGLOBIN 11.3 g/dl (12.5-16.0); LYMPH # 0.6 K/mm3 (1.2-3.4); MEAN CELL VOLUME 99 fl (80.0-100.0); MEAN CORPUSCULAR HEMOGLOBIN 30 pg (27-31); MEAN CORPUSCULAR HGB CONC 31 g/dl (33.0-37.0); MEAN PLATELET VOLUME 9.6 fl (7.4-10.4); MONO # 0.5 K/mm3 (0.1-0.6); MONO % 5.3 % (1.7-9.3); PLATELET COUNT 226 K/mm3 (130-400); RED BLOOD COUNT 3.74 M/mm3 (4.10-5.30); REDCELL DISTRIBUTION WIDTH-CV 13.7 % (11.5-14.5)
[2021-02-07 06:31] LABS: HEMATOCRIT 36.9 % (37.0-47.0)
[2021-02-07 06:41] LABS: CALCIUM 9.8 mg/dL (8.4-10.2); CREATININE, serum 0.86 mg/dL (0.57-1.11); POTASSIUM 4.5 mmol/L (3.5-4.5)
[2021-02-07 06:49] LABS: INR 1.8 (0.8-3.0); PROTHROMBIN TIME 20.4 SECONDS (9.7-12.8)
[2021-02-07 07:36] VITALS: BP 132/60; PULSE 75; TEMP 97.5
--- NOTE | 2021-02-07 09:56 | NUR ---
PT ALERT AND ORIENTED. PT DENIES SOA WHILE AT REST. PT LUNGS DIMINISHED IN ALL LOBES. PT HAS 1+ PITTING EDEMA IN BILATERAL LOWER EXTREMITIES. PT REPORTS PAIN IN LUNG 6/10, MANAGED WITH MEDICATIONS PER ORDERS. PT S1,S2 SOUND AUSCULTATED, 2+ PULSES ALL EXTREMITIES. PT ABDOMEN DISTENDED, SOFT AND NON-TENDER TO TOUCH. PT ABLE TO CALL FOR NEEDS. CALL LIGHT WITHIN REACH.
--- NOTE | 2021-02-07 11:25 | NUR ---
PT TRAY TAKEN BEFORE FOOD INTAKE COULD BE ASSESSED.
[2021-02-07 11:30] VITALS: BP 106/48; PULSE 63; TEMP 98
[2021-02-07 15:51] VITALS: BP 110/47; PULSE 65; TEMP 97.7
--- NOTE | 2021-02-07 15:56 | NUR ---
PT BLOOD PRESSURE LOW, PT DENIES DIZZINESS OR SOA. PT SLEEPING, WILL CONTINUE TO MONITOR.
--- NOTE | 2021-02-07 17:31 | NUR ---
PT CONTINUING ON PLAN OF CARE, PT CONTNIUES ON OXYGEN VIA NASAL CANNULA AND BIPAP. PT ABLE TO CALL FOR NEEDS, VITALS REMAINED STABLE THIS SHIFT. NO SIGNIFICANT CHANGES NOTED IN PT STATUS. PT PAIN MANAGED WITH PRN MEDICATIONS PER ORDERS. VISITED THIS SHIFT.
--- NOTE | 2021-02-07 19:22 | NUR ---
PT IS LAYING IN BED WITH BIPAP ON. PT DENIES ANY NEEDS AT THIS TIME. CALL LIGHT IN REACH.
[2021-02-07 20:08] VITALS: BP 122/47; PULSE 65; TEMP 97.8
--- NOTE | 2021-02-07 22:15 | NUR ---
PT ASSESSMENT COMPLETED. PT DENIES ANY PAIN AND HAS NO COMPLAINTS. PT STATED SHE GOT SOME ROUGH NEWS ABOUT HER DIAGNOSIS, STATES SHE IS DOING OK WITH THE INFORMATION. THIS RN COMPLETED THE ASSESSMENT AND GAVE MEDICATION. PT DID NOT WANT TO TAKE HER BP MEDICATION WITH HER CURRENT BLOOD PRESSURE READING OF 108/50. NO OTHER NEEDS AT THIS TIME.
[2021-02-08 00:36] VITALS: BP 108/59; PULSE 58; TEMP 97.6
--- NOTE | 2021-02-08 03:17 | NUR ---
THIS RN WAS CALLED BY CRITICAL CARE TELEHAILEY ABOUT PERIODS OF BRADYCARDIA FOR THIS PATIENT. PT STAYS IN HIGH 40'S HEART RATE FOR A PERIOD OF TIME AND THEN RAISES TO 50'S HEART RATE. HAILEY STATES THAT HE REMEMBERS CALLING LAST NIGHT ABOUT THE SAME PATTERN NOTED. THIS RN ACKNOWLEDGED AND WILL CONTINUE TO MONITOR.
[2021-02-08 04:33] VITALS: BP 124/59; PULSE 57; TEMP 97.5
--- NOTE | 2021-02-08 06:07 | NUR ---
PT HAD AN UNEVENTFUL NIGHT. PT SLEPT MOST OF NIGHT WITH NO FEVERS, BP REMAINED STABLE. PT TOOK ALL MEDICATIONS EXCEPT NORVASC AT 2100. PT REMOVED BIPAP AT 0550 TO TAKE MEDICATION AND INQUIRED ABOUT ABG FROM RT. THIS RN STATED THEY WILL BE IN SHORTLY. CALL LIGHT IN REACH. NO OTHER NEEDS AT THIS TIME.
[2021-02-08 06:18] LABS: GRAN # 5.5 K/mm3 (1.4-6.5); GRAN % 83.2 % (42.2-75.2); HEMOGLOBIN 10.9 g/dl (12.5-16.0); LYMPH # 0.6 K/mm3 (1.2-3.4); LYMPH % 9.5 % (20.0-51.0); MEAN CELL VOLUME 98 fl (80.0-100.0); MEAN CORPUSCULAR HEMOGLOBIN 30 pg (27-31); MEAN CORPUSCULAR HGB CONC 31 g/dl (33.0-37.0); MEAN PLATELET VOLUME 9.6 fl (7.4-10.4); MONO # 0.5 K/mm3 (0.1-0.6); MONO % 6.8 % (1.7-9.3); PLATELET COUNT 215 K/mm3 (130-400); RED BLOOD COUNT 3.65 M/mm3 (4.10-5.30); REDCELL DISTRIBUTION WIDTH-CV 13.7 % (11.5-14.5)
[2021-02-08 06:22] LABS: HEMATOCRIT 35.6 % (37.0-47.0)
[2021-02-08 06:33] LABS: INR 1.3 (0.8-3.0); PROTHROMBIN TIME 14.9 SECONDS (9.7-12.8)
[2021-02-08 06:40] LABS: CALCIUM 9.3 mg/dL (8.4-10.2); CREATININE, serum 0.83 mg/dL (0.57-1.11); POTASSIUM 4.3 mmol/L (3.5-4.5)
[2021-02-08 07:27] VITALS: BP 145/66; PULSE 69; TEMP 97.6
--- NOTE | 2021-02-08 07:34 | NUR ---
PT BLOOD PRESSURE ELEVATED ABOVE TREND, PT CONVERSING AND HAD SEVERAL ATTEMPTS AT ABGS, MENTIONING PAIN. WILL CONTINUE TO MONITOR THIS SHIFT.
[2021-02-08 07:44] LABS: ARTERIAL BLD GAS O2 SATURATION 92.6 % (92-100); ARTERIAL BLD GAS TCO2 CT 42.2; ARTERIAL BLOOD GAS BASE EXCESS 11.7 (-2-2); ARTERIAL BLOOD GAS PO2 65.8 mmHg (80-100); ARTERIAL BLOOD GAS pH 7.36 (7.35-7.45)
[2021-02-08 07:45] LABS: ARTERIAL BLOOD GAS PCO2 71.8 mmHg (35-45)
--- NOTE | 2021-02-08 09:58 | NUR ---
The patient is to tentatively discharge back home with her today, 02/08. The patient and her were interested in getting a copy of the patient's DPOA-HC. JEMIMA printed off the DPOA-HC. The DPOA-HC did not have two witnesses, therefore, it is not valid. JEMIMA met with the patient and her to update. The patient was interested in completing a DPOA-HC while here. JEMIMA and AMINATA Fan, witnessed the patient's signature. JEMIMA provided the patient with the original and some copies. The patient designated her , her daughter (Alessandra) as the alternate, and her other daughter (Keith) as the second alternate. No additional needs at this time.
--- NOTE | 2021-02-08 10:53 | NUR ---
PT ALERT AND ORIENTED. PT LUNGS DIMINISHED, CLEAR IN ALL LOBES. PT HAS S1,S2 AUSCULTATED. PT PULSES 2+ IN ALL EXTREMITIES. PT STATES PAIN 5/10 WITH COUGH, MEDICATION GIVEN PER ORDERS. PT ABDOMEN DISTENDED, SOFT, NON-TENDER. PT EXPRESSES WISHES TO GO HOME TODAY. CALL LIGHT WITHIN REACH.
[2021-02-08] MEDS ORDERED: PREDNISONE20 MG PO (11:08)
[2021-02-08 11:45] VITALS: BP 118/47; PULSE 69; TEMP 98
[2021-02-08 12:50] VITALS: BP 132/58; PULSE 75; TEMP 97.5
--- NOTE | 2021-02-08 12:54 | NUR ---
PT DISCHARGING, HEALTH SUMMARY AND EDUCATION PROVIDED TO BEST OF ABILITY. QUESTIONS ANSWERED TO BEST OF ABILITY. PT INT DISCONTINUED, DISCHARGE VITALS OBTAINED. PT TO BE WHEELED OUT BY [facility].
== END 2021-02-08 13:15 | disposition home or self-care (01) ==
LOC: COL.ER 11:37 → SURG 20:02 → MEDICAL 02-05 15:52
PROVIDERS: Internal Medicine Pulmonary Disease; Physician Assistant; Student in an Organized Health Care Education/Training Program; ADMIT Student in an Organized Health Care Education/Training Program
DX: J96.22 Acute and chronic respiratory failure with hypercapnia (principal); J44.1 Chronic obstructive pulmonary disease with (acute) exacerbation; R07.89 Other chest pain; Z86.711 Personal history of pulmonary embolism; I10 Essential (primary) hypertension; R60.0 Localized edema; D53.9 Nutritional anemia, unspecified; D68.2 Hereditary deficiency of other clotting factors; G20 Parkinson's disease; G62.9 Polyneuropathy, unspecified; E89.0 Postprocedural hypothyroidism; F32.A Depression, unspecified; K21.9 Gastro-esophageal reflux disease without esophagitis; N28.89 Other specified disorders of kidney and ureter; E87.3 Alkalosis; Z99.81 Dependence on supplemental oxygen; Z79.01 Long term (current) use of anticoagulants; Z86.14 Personal history of Methicillin resistant Staphylococcus aureus infection; Z79.52 Long term (current) use of systemic steroids; Z79.890 Hormone replacement therapy; Z79.2 Long term (current) use of antibiotics; Z79.51 Long term (current) use of inhaled steroids; Z79.899 Other long term (current) drug therapy; Z85.44 Personal history of malignant neoplasm of other female genital organs; Z95.828 Presence of other vascular implants and grafts; Z99.89 Dependence on other enabling machines and devices
CPT/HCPCS: 99232-AI; 99233-AI; 99239; G0378; J0456; J0696; J2920; J7050; J7512; Q9967

== ENCOUNTER 2021-03-25 18:32 | Inpatient (IN) | payer MEDICARE ==
[~2021-03-25] VITALS: Ht 165.1 cm; Wt 92.5 kg
[2021-03-25] MEDS ORDERED: BREZTRI AEROS10.7 GM IH (18:57)
[2021-03-25] MEDS ORDERED: CEFTIN 250250 MG/TAB PO (18:57)
[2021-03-25] MEDS ORDERED: ALDACTONE 25MG25 M1 PO (18:58)
[2021-03-25] MEDS ORDERED: MELATONIN3 M1 (18:59)
[2021-03-25 19:02] LABS: BASO % 0.9 % (0.0-2.0); EOS # 0.2 K/mm3 (0.0-0.7); EOS % 3.3 % (0.0-4.0); GRAN # 2.7 K/mm3 (1.4-6.5); GRAN % 59.2 % (42.2-75.2); HEMATOCRIT 39.9 % (37.0-47.0); HEMOGLOBIN 12.3 g/dl (12.5-16.0); LYMPH % 21.9 % (20.0-51.0); MEAN CELL VOLUME 98 fl (80.0-100.0); MEAN CORPUSCULAR HEMOGLOBIN 30 pg (27-31); MEAN CORPUSCULAR HGB CONC 31 g/dl (33.0-37.0); MEAN PLATELET VOLUME 9.6 fl (7.4-10.4); MONO # 0.6 K/mm3 (0.1-0.6); MONO % 13.8 % (1.7-9.3); PLATELET COUNT 182 K/mm3 (130-400); RED BLOOD COUNT 4.08 M/mm3 (4.10-5.30); REDCELL DISTRIBUTION WIDTH-CV 13.9 % (11.5-14.5)
[2021-03-25 19:17] LABS: CALCIUM 9.8 mg/dL (8.4-10.2); CREATININE, serum 0.86 mg/dL (0.57-1.11); POTASSIUM 4.2 mmol/L (3.5-4.5); TOTAL PROTEIN 7.7 gm/dL (6.2-8.1)
[2021-03-25 19:28] LABS: ARTERIAL BLD GAS O2 SATURATION 98.8 % (92-100); ARTERIAL BLD GAS TCO2 CT 45.1; ARTERIAL BLOOD GAS BASE EXCESS 12.8 (-2-2); ARTERIAL BLOOD GAS HCO3 42.5 meq/L (22-26); ARTERIAL BLOOD GAS pH 7.32 (7.35-7.45)
[2021-03-25 19:30] LABS: BILIRUBIN,TOTAL 0.3 mg/dL (0.2-1.2)
[2021-03-25 19:31] LABS: ARTERIAL BLOOD GAS PCO2 85.2 mmHg (35-45); ARTERIAL BLOOD GAS PO2 147.1 mmHg (80-100)
[2021-03-25 21:05] LABS: INR 2.3 (0.8-3.0); PROTHROMBIN TIME 25.4 SECONDS (9.7-12.8)
--- NOTE | 2021-03-25 21:30 | NUR ---
pt admitted to room 318 from ED per WC, alert and oriented, SOA reported, pt on O2 @2L increased to 5L to keep sat 88-92%, per NC. uses bipap at home while sleeping. pt has hx of COPD, reports these are her home sat limits. see emar and assessment.
[2021-03-25 21:33] VITALS: BP 140/58; PULSE 75; TEMP 97.3
[2021-03-25 23:38] VITALS: BP 121/49; PULSE 69; TEMP 97.5
[2021-03-26 03:59] VITALS: BP 114/56; PULSE 61; TEMP 97.8
[2021-03-26 04:56] LABS: ARTERIAL BLD GAS O2 SATURATION 94.7 % (92-100); ARTERIAL BLD GAS TCO2 CT 41.8; ARTERIAL BLOOD GAS BASE EXCESS 12.2 (-2-2); ARTERIAL BLOOD GAS HCO3 39.7 meq/L (22-26); ARTERIAL BLOOD GAS PO2 69.9 mmHg (80-100); ARTERIAL BLOOD GAS pH 7.39 (7.35-7.45)
[2021-03-26 04:57] LABS: ARTERIAL BLOOD GAS PCO2 67.7 mmHg (35-45)
--- NOTE | 2021-03-26 06:12 | NUR ---
pt on BiPap most of the noc, now on O2 per NC, up to BSC on 2L, requested incease to 4L. on bipap O2 was 30%. pt up with assist of 1 and walker. no c/o pain this am.
[2021-03-26 07:02] LABS: BASO % 0.4 % (0.0-2.0); EOS % 0.2 % (0.0-4.0); GRAN # 3.7 K/mm3 (1.4-6.5); GRAN % 79.5 % (42.2-75.2); HEMATOCRIT 40.8 % (37.0-47.0); HEMOGLOBIN 12.2 g/dl (12.5-16.0); LYMPH # 0.8 K/mm3 (1.2-3.4); LYMPH % 17.1 % (20.0-51.0); MEAN CELL VOLUME 98 fl (80.0-100.0); MEAN CORPUSCULAR HEMOGLOBIN 29 pg (27-31); MEAN CORPUSCULAR HGB CONC 30 g/dl (33.0-37.0); MEAN PLATELET VOLUME 9.9 fl (7.4-10.4); MONO # 0.1 K/mm3 (0.1-0.6); MONO % 2.2 % (1.7-9.3); PLATELET COUNT 182 K/mm3 (130-400); RED BLOOD COUNT 4.17 M/mm3 (4.10-5.30); REDCELL DISTRIBUTION WIDTH-CV 13.8 % (11.5-14.5)
[2021-03-26 07:18] LABS: CALCIUM 9.7 mg/dL (8.4-10.2); CREATININE, serum 0.83 mg/dL (0.57-1.11); POTASSIUM 4.3 mmol/L (3.5-4.5)
[2021-03-26 07:27] VITALS: BP 121/52; PULSE 64; TEMP 97.3
--- NOTE | 2021-03-26 08:30 | NUR ---
PT SITTING UP IN BED WITH NASAL CANNULA, PT AOX4, ASSESSMENT PERFORMED, MEDICATIONS GIVEN, IN ROOM AT BEDSIDE, BREAKFAST DELIVERED AND SET UP FOR PT, VITALS REVIEWED, CALL LIGHT WITHIN REACH, REPORTS PAIN IN L SIDE OF RIBS BUT DENIES NEED FOR TYLENOL AT THIS TIME
--- NOTE | 2021-03-26 09:15 | NUR ---
Initial visit; Viry and her thanked Ditch Rider for offering encouragment and prayer this morning. Ditch Rider let them know she is available to listen as well.
--- NOTE | 2021-03-26 10:55 | NUR ---
Met with Rob and patient at bedside. Rob is Viry's primary animal caretaker supervisor and identifies that they are running out of treatment options and that he is starting to need more help with Viry's cares at home. He is afraid to leave her alone at home as she has had incidents in the past that she decompensated really fast. Viry states she would like to try to live longer but does not want to be intubated. Rob and Viry like the sound of trying pulmonary rehab and using home health services after this admission.
[2021-03-26 11:14] VITALS: BP 136/51; PULSE 84; TEMP 97.2
--- NOTE | 2021-03-26 14:34 | NUR ---
Package Sealer Machine attended clinical rounds with the team then met with patient and her , Rob (ph#[phone]) to discuss discharge planning. Palliative RN, Mita is also at bedside. Patient states she desires to return home, but is interested in Home Health services as well as private duty services. Patient lives in [place] with her and sees Dr. Trisha Rao for primary care. Patient obtains medications by mail and also uses [facility] as needed. Patient has a home trilogy and oxygen from [facility]. Patient normally uses a walker for ambulation but Rob advised that when they go to appointments, patient uses a wheelchair as she easily becomes short of breath. Patient states she gets to the bathroom independently, however Rob assists her with bathing. Patient has Advance Directives in EMR which designates her Rob and daughter Alessandra. SW provided patient with Medicare.gov list of HH agencies that serve [place]. SW also provided contact information for [facility], a private duty services agency. Patient is also interested in pulmonary rehab at [facility]. JEMIMA contacted the pulmonary rehab at [facility] and left a message. JEMIMA will follow up on choice for HH agency. Discharge Plan: Home with Home Health
[2021-03-26 16:00] VITALS: BP 120/51; PULSE 66; TEMP 97.8
--- NOTE | 2021-03-26 18:16 | NUR ---
PT AOX4, X1 ASSIST WITH WALKER TO BEDSIDE COMMODE, PLEASANT, REPORTS DISCOMFORT IN RIBS, REQUESTED TYLENOL X1, NO OTHER NEEDS
[2021-03-26 20:07] VITALS: BP 122/57; PULSE 73; TEMP 97.7
--- NOTE | 2021-03-26 22:49 | NUR ---
Patient assessed around 2100. Alert and oriented, and able to make needs known. Denies pain and discomfort. Peripheral INT to right AC. On oxygen at 3 L/min via NC. BIPAP at night. Voices no questions, needs, or concerns at this time. In bed with call light within reach.
[2021-03-26 23:22] VITALS: BP 128/62; PULSE 72; TEMP 97.8
[2021-03-27 04:26] VITALS: BP 118/51; PULSE 63; TEMP 97.5
[2021-03-27 05:45] LABS: ARTERIAL BLD GAS O2 SATURATION 88.8 % (92-100); ARTERIAL BLD GAS TCO2 CT 40.5; ARTERIAL BLOOD GAS BASE EXCESS 12.3 (-2-2); ARTERIAL BLOOD GAS HCO3 38.7 meq/L (22-26); ARTERIAL BLOOD GAS PCO2 58.6 mmHg (35-45); ARTERIAL BLOOD GAS PO2 52.8 mmHg (80-100); ARTERIAL BLOOD GAS pH 7.44 (7.35-7.45)
--- NOTE | 2021-03-27 06:07 | NUR ---
Patient has been wearing and tolerating BIPAP this shift. Taken off this morning and put on oxygen at 3 L/min via NC as requested. Voices no further questions, needs, or concerns at this time. In bed with call light within reach.
[2021-03-27 07:55] VITALS: BP 138/66; PULSE 79; TEMP 97.7
--- NOTE | 2021-03-27 08:00 | NUR ---
PT PLEASANT, AOX4, REPORTS FEELING A LOT BETTER, PT DENIES SOB AT REST, ASSESMENT PERFORMED, MEDIATIONS, PT REPORTS SHARP PAIN IN L SIDE WITH COUGHING, NO OTHER NEEDS
[2021-03-27] MEDS ORDERED: PREDNISONE 5MG5 MG PO (10:07)
[2021-03-27 12:06] VITALS: BP 110/54; PULSE 70; TEMP 97.9
--- NOTE | 2021-03-27 12:49 | NUR ---
IV SITE TO RAC REMOVED, PT PLEASANT, DISCHARGE EDUCATION PROVIDED, TYLENOL GIVEN PER PT REQUEST, PT SPOUSE REQUESTING TO TALK TO [employer] CUSTOMER SOLUTIONS SUPERVISOR, PAYTON NOTFIIED. NO OTHER NEEDS
--- NOTE | 2021-03-27 14:42 | NUR ---
PT ESCORTED OUT VIA WHEELCHAIR
--- NOTE | 2021-03-27 15:19 | NUR ---
Geothermal System Installer followed up with patient and her , Rob to discuss home health. Patient and Rob selected [facility]. JEMIMA contacted Dannielle at [facility] and faxed referral/discharge orders. Dannielle advised they will be submitting for authorization through patient's insurance and will contact JEMIMA with any issues. Discharge Plan: Home with [facility]
== END 2021-03-27 14:00 | disposition home or self-care (01) | DRG 189 ==
LOC: COL.ER 18:32 → MEDICAL 20:20
PROVIDERS: Family Medicine; Internal Medicine; Student in an Organized Health Care Education/Training Program; ADMIT Internal Medicine
PROC: 5A09357 Assistance with Respiratory Ventilation, Less than 24 Consecutive Hours, Continuous Positive Airway Pressure (ICD-10-PCS; principal; 2021-03-26)
DX: J96.22 Acute and chronic respiratory failure with hypercapnia (principal); J44.1 Chronic obstructive pulmonary disease with (acute) exacerbation; D68.51 Activated protein C resistance; J96.21 Acute and chronic respiratory failure with hypoxia; I10 Essential (primary) hypertension; G20 Parkinson's disease; G62.9 Polyneuropathy, unspecified; E89.0 Postprocedural hypothyroidism; F32.A Depression, unspecified; K21.9 Gastro-esophageal reflux disease without esophagitis; N28.9 Disorder of kidney and ureter, unspecified; D53.9 Nutritional anemia, unspecified; Z66 Do not resuscitate; Z20.822 Contact with and (suspected) exposure to COVID-19; Z86.718 Personal history of other venous thrombosis and embolism; Z86.711 Personal history of pulmonary embolism; Z79.01 Long term (current) use of anticoagulants; Z99.81 Dependence on supplemental oxygen; S22.42XD Multiple fractures of ribs, left side, subsequent encounter for fracture with routine healing; Z23 Encounter for immunization
CPT/HCPCS: 99223-AI; 99232-AI; 99239; J2920; J7512

== ENCOUNTER 2021-11-11 12:55 | Emergency (ER) | payer MEDICARE ==
[~2021-11-11] VITALS: Ht 165.1 cm; Wt 93.2 kg
[~2021-11-11 12:55] MED LIST changes: +ALDACTONE 25MG25 M1 PO; +BREZTRI AEROS10.7 GM IH; +MELATONIN3 M1
[2021-11-11 13:00] VITALS: TEMP 97.9
[2021-11-11 14:27] LABS: COLLECTION METHOD CLEAN CATCH
[2021-11-11 14:48] LABS: URINE APPEARANCE Clear (CLEAR/HAZY); URINE BLOOD Negative (NEGATIVE); URINE COLOR Yellow (YELLOW); URINE GLUCOSE Negative (NEGATIVE); URINE KETONE Negative (NEGATIVE); URINE NITRATE Negative (NEGATIVE); URINE PROTEIN(semi-quant) Negative (NEGATIVE); URINE UROBILINOGEN 0.2 E.U/dL (0.2-1.0)
[2021-11-11 15:11] LABS: INR 1.8 (0.8-3.0); PROTHROMBIN TIME 20.7 SECONDS (9.7-12.8)
[2021-11-11 15:14] LABS: BASO % 0.6 % (0.0-2.0); EOS # 0.1 K/mm3 (0.0-0.7); EOS % 2.3 % (0.0-4.0); GRAN # 3.1 K/mm3 (1.4-6.5); GRAN % 60.9 % (42.2-75.2); HEMOGLOBIN 11.5 g/dl (12.5-16.0); LYMPH # 1.2 K/mm3 (1.2-3.4); LYMPH % 23.4 % (20.0-51.0); MEAN CELL VOLUME 97 fl (80.0-100.0); MEAN CORPUSCULAR HEMOGLOBIN 31 pg (27-31); MEAN CORPUSCULAR HGB CONC 32 g/dl (33.0-37.0); MEAN PLATELET VOLUME 9.5 fl (7.4-10.4); MONO # 0.6 K/mm3 (0.1-0.6); MONO % 12.2 % (1.7-9.3); PLATELET COUNT 153 K/mm3 (130-400); RED BLOOD COUNT 3.73 M/mm3 (4.10-5.30); REDCELL DISTRIBUTION WIDTH-CV 12.4 % (11.5-14.5)
[2021-11-11 15:15] LABS: ALBUMIN 3.5 gm/dL (3.4-4.8); BILIRUBIN,TOTAL 0.4 mg/dL (0.2-1.2); CALCIUM 8.9 mg/dL (8.4-10.2); CREATININE, serum 0.86 mg/dL (0.57-1.11); POTASSIUM 4.3 mmol/L (3.5-4.5); TOTAL PROTEIN 6.7 gm/dL (6.2-8.1)
[2021-11-11 15:24] LABS: HEMATOCRIT 36.2 % (37.0-47.0)
[2021-11-11 15:39] LABS: URINE RBC 0-2 /hpf (0-2)
[2021-11-11 15:40] LABS: URINE BACTERIA Rare /hpf (NONE SEEN)
[2021-11-11] MEDS ORDERED: NORCO 325 MG-51 TAB PO (17:18)
[2021-11-11 18:00] VITALS: BP 124/58; PULSE 68
[2021-11-20] MEDS ORDERED: NEURONTIN300 MG/CAP (13:39)
[2021-11-20] MEDS ORDERED: TIROSINT100 MC1 PO (13:42)
== END 2021-11-11 18:07 | disposition home or self-care (01) ==
LOC: COL.ER 12:55
PROVIDERS: Emergency Medicine
DX: N20.1 Calculus of ureter (principal); K62.5 Hemorrhage of anus and rectum; D64.9 Anemia, unspecified; D68.51 Activated protein C resistance; J44.9 Chronic obstructive pulmonary disease, unspecified; Z99.81 Dependence on supplemental oxygen; Z91.040 Latex allergy status; Z79.01 Long term (current) use of anticoagulants
CPT/HCPCS: J7040; Q9967